=== PATIENT | male | born 1965 | race Caucasian/White ===

== ENCOUNTER 2023-05-30 15:43 | Outpatient (AMB) | payer BC, SELFPAY ==
--- NOTE | 2023-05-30 15:50 | HO.NEPHOV ---
HPI HPI Comments History of Present Illness Details Mr. Lorenzo is a 57 year old gentleman whom I had the pleasure of seeing in follow-up of for his chronic kidney disease and hypertension. 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 His post op course was complicated by acute urinary retention for which he presented to the ED and had a Andrew placed. He was followed up with urology as an outpatient for removal. He reports he is now voiding without any issues. He also had some blood in the urine and was suggested to have cystoscopy. His blood pressure is currently at goal. He does not take any nonsteroidal anti-inflammatories. His serum calcium continues to be labile. He denies nausea, vomiting, confusion, pedal edema, dysuria, orthostatic symptoms, chest pain, paroxysmal nocturnal dyspnea, orthopnea or shortness of breath. He maintains good hydration. All other systems have been reviewed and were negative. [facility] Medical History (Updated 06/02/23 @ 20:23 by Benson Ng MD) CKD (chronic kidney disease) Family History (Updated 05/30/23 @ 15:58 by Lore Medina MA) Father Cancer Social History (Updated 05/30/23 @ 15:57 by Lore Medina MA) Alcohol intake: never Patient Tobacco Use Status: Former Tobacco user Vital Signs 05/30/23 15:52 Height 5 ft 9 in Weight 184 lb BMI 27.2 BP 120/82 Blood Pressure Location Lt brachial Position Sitting Pulse 78 Pulse Source Pulse Oximeter Pulse Oximetry (%) 100 Oxygen Delivery Method Room Air Physical Exam Vital Signs: Last Vital Signs Pulse 78 05/30/23 15:52 BP 120/82 05/30/23 15:52 Pulse Ox 100 05/30/23 15:52 Oxygen Delivery Method Room Air 05/30/23 15:52 BMI result Body Mass Index 27.2 Const General: comfortable and no acute distress Orientation/consciousness: patient oriented x3 HEENT Head: Yes normocephalic Mouth: Normal oral and palatal mucosa present Eyes EOM: EOMs intact bilaterally Neck Neck: Yes supple Resp Auscultation: clear to auscultation bilaterally Cardio Jugular venous distension: no JVD Rate: regular rate GI Palpation (GI): Soft to palpation Auscultation: normal bowel sounds General: Yes no CVA tenderness Back/Spine/Pelvis Back: no CVA tenderness Skin General skin exam: no rashes or lesions noted Neuro General: patient oriented x3 and moves all extremities Extrem General: Yes no pedal edema Assessment & Plan Assessment & Plan (1) Hypertension: Code(s): I10 - Essential (primary) hypertension Qualifiers: Hypertension type: primary hypertension Qualified Code(s): I10 - Essential (primary) hypertension (2) CKD (chronic kidney disease) stage 3, GFR 30-59 ml/min: Code(s): N18.30 - Chronic kidney disease, stage 3 unspecified Qualifiers: Chronic kidney disease stage 3 subtype: stage 3a (GFR 45-59) Qualified Code(s): N18.31 - Chronic kidney disease, stage 3a (3) Hypercalcemia: Code(s): E83.52 - Hypercalcemia (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 Lorenzo has CKD and his renal functions had been fairly stable. His blood pressure is at goal. He is tolerating angiotensin receptor kristian. He avoids nonsteroidal anti-inflammatories and maintain good hydration . 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 He recently had urinary retention with a microscopic hematuria and was suggested to have cystoscopy. I took the liberty to refer him to Dr. Vladimir Kam. I have ordered follow-up blood work. I plan to do PKD gene testing for him as well. I did not make any medication changes today. All questions answered. Follow-up given. Orders: Orders Blood Urea Nitrogen 05/30/23 I10 - Essential (primary) hypertension, N18.30 - Chronic kidney disease, stage 3 unspecified Electrolytes 05/30/23 I10 - Essential (primary) hypertension, N18.30 - Chronic kidney disease, stage 3 unspecified Parathyroid Hormone Intact 05/30/23 I10 - Essential (primary) hypertension, N18.30 - Chronic kidney disease, stage 3 unspecified Phosphorus 05/30/23 I10 - Essential (primary) hypertension, N18.30 - Chronic kidney disease, stage 3 unspecified Creatinine 05/30/23 I10 - Essential (primary) hypertension, N18.30 - Chronic kidney disease, stage 3 unspecified Protein Creatinine Ratio, Ur 05/30/23 I10 - Essential (primary) hypertension, N18.30 - Chronic kidney disease, stage 3 unspecified Vitamin D 25-OH Total 05/30/23 I10 - Essential (primary) hypertension, N18.30 - Chronic kidney disease, stage 3 unspecified Referrals Urology Referral E83.52 - Hypercalcemia, E83.59 - Other disorders of calcium metabolism, I10 - Essential (primary) hypertension, N18.30 - Chronic kidney disease, stage 3 unspecified, N25.89 - Other disorders resulting from impaired renal tubular function, N28.1 - Cyst of kidney, acquired, R31.29 - Other microscopic hematuria, Z87.898 - Personal history of other specified conditions Coding Level of Care Code Est Pt Level 4 (88681) Diagnoses Primary hypertension I10 Hypertension type: primary hypertension Stage 3a chronic kidney disease N18.31 Chronic kidney disease stage 3 subtype: stage 3a (GFR 45-59) Hypercalcemia E83.52 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
[2023-05-30 15:52] VITALS: BP 120/82; PULSE 78; O2SAT 100; BMI 27.2
== END 2023-05-30 16:36 | disposition home or self-care (01) ==
PROVIDERS: Visit Provider Internal Medicine Nephrology
DX: I10 Essential (primary) hypertension (principal); N18.31 Chronic kidney disease, stage 3a; E83.52 Hypercalcemia; E83.59 Other disorders of calcium metabolism; R31.29 Other microscopic hematuria; Z87.898 Personal history of other specified conditions; N25.89 Other disorders resulting from impaired renal tubular function; N28.1 Cyst of kidney, acquired
CPT/HCPCS: 99214

== ENCOUNTER → 2023-05-30 15:43 | Outpatient (BNVA) | payer BC, SELFPAY | PROVIDERS: Visit Provider Internal Medicine Nephrology ==

== ENCOUNTER 2023-07-23 14:50 | Outpatient (AMB) | payer BC, SELFPAY ==
--- NOTE | 2023-07-23 14:49 | MHC.OFFVIS ---
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 The patient states he voided a small amount in recovery room. He went home but was unable to void again and returned to the emergency room at 22:00 and a Andrew was placed. He states that there was bleeding after the Andrew was placed. He followed up with [facility] urology in 4-5 days to have the Andrew removed. He was on tamsulosin while the Andrew was in but states that he does not generally have issues with urination. Urinalysis 2+ protein trace blood. Bladder scan PVR 12 mL Plan renal ultrasound, PSA screening, urine for cytology, will consider office cystoscopy for the future pending results on follow-up. [facility] Medical History CKD (chronic kidney disease) Surgical History History of back surgery Hx of cholecystectomy Hx of total thyroidectomy Family History Father Cancer Social History Alcohol intake: never Patient Tobacco Use Status: Former Tobacco user Review of Systems Const All systems reviewed & are unremarkable except as noted in HPI and below Reports no additional complaints Eyes Reports no additional complaints ENT Reports no additional complaints Card Denies dyspnea Resp Denies cough and Denies dyspnea GI Reports no additional complaints Musc Reports no additional complaints Skin/Breast Denies rash and Denies unusual bruising Neuro Reports no additional complaints Psych Reports no additional complaints Endo Reports no additional complaints Lance/Lymph Reports no additional complaints Aller/Immun Reports no additional complaints Physical Exam Const General: healthy appearing, no acute distress and well developed HEENT Head: Yes normocephalic and Yes atraumatic Eyes Conjunctivae: conjunctivae normal Neck Neck: Yes normal visual inspection Chest Chest palpation & inspection: normal inspection of the chest Resp Effort & Inspection: normal respiratory effort Cardio Rate: regular rate GI Inspection: Yes normal to inspection Palpation (GI): Soft to palpation Skin General skin exam: no rashes or lesions noted Extrem General: No pedal edema Psych Appearance: grossly normal Affect: normal affect Office Procedures Post Void Residual Post Residual Void Post Void Residual (PVR): 12 [id number] Void Residual by ultrasound Results AMB Urinalysis, Automated UA Leukoctes 0 Randy/uL Last Edit by Roberta Echevarria MA on 07/23/23 15:12 UA Nitrite Negative Last Edit by Roberta Echevarria MA on 07/23/23 15:12 UA Urobilinogen 3.5 mg/dL Last Edit by Roberta Echevarria MA on 07/23/23 15:12 UA Protein 3.0 mg/dL Last Edit by Roberta Echevarria MA on 07/23/23 15:12 3+ Roberta Echevarria 07/23/23 15:12 UA pH 6.5 Last Edit by Roberta Echevarria MA on 07/23/23 15:12 UA Blood 10 [place]/uL Last Edit by Roberta Echevarria MA on 07/23/23 15:12 + Roberta Echevarria 07/23/23 15:12 UA Specific [place] 1.015 Last Edit by Roberta Echevarria MA on 07/23/23 15:12 UA Ketone Negative Last Edit by Rboerta Echevarria MA on 07/23/23 15:12 UA Bilirubin 0 mg/dL Last Edit by Roberta Echevarria MA on 07/23/23 15:12 UA Glucose 0 mg/dL Last Edit by Roberta Echevarria MA on 07/23/23 15:12 Results Reviewed Results Reviewed: Laboratory Last Values Urine pH (Auto) 6.5 07/23/23 14:53 Specific [place] (Auto) 1.015 07/23/23 14:53 Urine Protein (Auto) 3.0 mg/dL 07/23/23 14:53 Glucose (UA)(Auto) 0 mg/dL 07/23/23 14:53 Urine Ketones (Auto) Negative 07/23/23 14:53 Urine Blood (Auto) 10 [place]/uL 07/23/23 14:53 Urine Nitrite (Auto) Negative 07/23/23 14:53 Urine Bilirubin (Auto) 0 mg/dL 07/23/23 14:53 Urine Urobilinogen (Auto) 3.5 mg/dL 07/23/23 14:53 Leukocyte Esterase (Auto) 0 Randy/uL 07/23/23 14:53 Assessment & Plan Assessment & Plan (1) Microscopic hematuria: Code(s): R31.29 - Other microscopic hematuria (2) Screening PSA (prostate specific antigen): Code(s): Z12.5 - Encounter for screening for malignant neoplasm of prostate Plan renal ultrasound, PSA screening, urine for cytology, will consider office cystoscopy for the future pending results on follow-up. Orders: Orders AMB Urinalysis Automated 07/23/23 Z13.9 - Encounter for screening, unspecified AMB Post Void Residual by ultrasound 07/23/23 Z87.898 - Personal history of other specified conditions US renal BI 07/23/23 N18.9 - Chronic kidney disease, unspecified, R31.29 - Other microscopic hematuria Urine Cytology 07/23/23 R31.29 - Other microscopic hematuria PSA,Total (Free>4and<10) 07/23/23 Z12.5 - Encounter for screening for malignant neoplasm of prostate Patient Instructions: The patient had an opportunity to ask questions regarding treatment plan. All questions were answered. Laboratory results were discussed and reviewed in detail. No major barriers to understanding were identified. The patient expressed understanding and agreement with the above treatment plan. The patient is aware they should contact our office by phone for worsening of their current condition or the appearance of new symptoms. Compliance is encouraged with any medications and followup testing that is ordered. It is a privilege to be allowed the opportunity to participate in the urologic care of your patient. If you have any questions or concerns regarding treatment for the above conditions please do not hesitate to contact me. The office telephone contact is [phone]. This note is constructed in part using voice recognition software. While every effort has been made to ensure accuracy tire mounter errors may have been included. Yours sincerely, Jose Key MD Coding Level of Care Code New Pt Level 4 (56148) Diagnoses Microscopic hematuria R31.29 Screening PSA (prostate specific antigen) Z12.5 CPT Codes Post Residual Void - PVR CPT Code: 64433-Sxyn Void Residual by ultrasound ([id number])
== END 2023-07-23 15:51 | disposition home or self-care (01) ==
PROVIDERS: Visit Provider Urology
DX: R31.29 Other microscopic hematuria (principal); Z12.5 Encounter for screening for malignant neoplasm of prostate
CPT/HCPCS: 99204

== ENCOUNTER 2023-07-23 14:50 | Outpatient (REF) | payer BC, SELFPAY ==
[2023-07-23 17:35] LABS: Urine Cytology See Pathology rpt
== END 2023-07-23 14:51 | disposition home or self-care (01) ==
LOC: HO.LAB 14:50
PROVIDERS: Visit Provider Urology
DX: R31.29 Other microscopic hematuria (principal)
CPT/HCPCS: 51798; 81003; 88112

== ENCOUNTER 2023-08-29 14:09 | Outpatient (REF) | payer BC, SELFPAY ==
[2023-08-29 17:13] LABS: PSA,Total (Free>4and<10) 2.47 ng/mL (0.00-4.00)
== END 2023-08-29 14:10 | disposition home or self-care (01) ==
LOC: HO.LAB 14:09
PROVIDERS: Absent Provider Internal Medicine Nephrology; PCP Family Medicine; Visit Provider Urology
DX: Z12.5 Encounter for screening for malignant neoplasm of prostate (principal)
CPT/HCPCS: 36415; 84153

== ENCOUNTER 2023-08-29 14:24 | Outpatient (AMB) | payer BC, SELFPAY ==
[2023-08-29 14:33] VITALS: BP 122/80; PULSE 80; O2SAT 97; BMI 27.6
--- NOTE | 2023-08-29 14:33 | HO.NEPHOV_ITS ---
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 Lorenzo is a 57 year old gentleman whom I had the pleasure of seeing in follow-up of for his chronic kidney disease and hypertension. He underwent la paroscopic cholecystectomy for symptomatic gallstones on 03/24/23 (Chronic cholecystitis/ Cystic duct lymph node with reactive hyperplasia). His post op course was complicated by acute urinary retention for which he presented to the ED and had a Andrew placed. He was followed up with urology as an outpatient for removal. He reports he is now voiding without any issues. He also had some blood in the urine and was suggested to have cystoscopy for which he has seen Urology. His blood pressure is currently at goal. He does not take any nonsteroidal anti-inflammatories. His serum calcium continues to be labile. He denies nausea, vomiting, confusion, pedal edema, dysuria, orthostatic symptoms, chest pain, paroxysmal nocturnal dyspnea, orthopnea or shortness of breath. He maintains good hydration. His serum creatinine has been stable. He has been having issues with ejaculation and wants to see Dr Kam. All other systems have been reviewed and were negative. [facility] Medical History CKD (chronic kidney disease) Surgical History History of back surgery Hx of cholecystectomy Hx of total thyroidectomy Family History Father Cancer Social History Alcohol intake: never Patient Tobacco Use Status: Former Tobacco user Physical Exam Vital Signs: Last Vital Signs Pulse 80 08/29/23 14:33 BP 122/80 08/29/23 14:33 Pulse Ox 97 08/29/23 14:33 Oxygen Delivery Method Room Air 08/29/23 14:33 BMI result Body Mass Index 27.6 Const General: comfortable and no acute distress Orientation/consciousness: patient oriented x3 HEENT Head: Yes normocephalic Mouth: Normal oral and palatal mucosa present Eyes EOM: EOMs intact bilaterally Neck Neck: Yes supple Resp Auscultation: clear to auscultation bilaterally Cardio Jugular venous distension: no JVD Rate: regular rate GI Palpation (GI): Soft to palpation Auscultation: normal bowel sounds General: Yes no CVA tenderness Back/Spine/Pelvis Back: no CVA tenderness Skin General skin exam: no rashes or lesions noted Neuro General: patient oriented x3 and moves all extremities Extrem General: Yes no pedal edema Results Reviewed Nephrology Results: No Data to Display Assessment & Plan Assessment & Plan (1) CKD (chronic kidney disease) stage 3, GFR 30-59 ml/min: Code(s): N18.30 - Chronic kidney disease, stage 3 unspecified Category: Medical Qualifiers: Chronic kidney disease stage 3 subtype: stage 3a (GFR 45-59) Qualified Code(s): N18.31 - Chronic kidney disease, stage 3a (2) Hypercalcemia: Code(s): E83.52 - Hypercalcemia Category: Medical (3) Hypertension: Code(s): I10 - Essential (primary) hypertension Category: Medical Qualifiers: Hypertension type: primary hypertension Qualified Code(s): I10 - Essential (primary) hypertension (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 Lorenzo has CKD and his renal functions had been fairly stable. His blood pressure is at goal. He is tolerating angiotensin receptor kristian. He avoids nonsteroidal anti-inflammatories and maintain good hydration . 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 He recently had urinary retention with a microscopic hematuria and was suggested to have cystoscopy for which he has seen Urology. He has been having issues with ejaculation and wants to see Dr Kam. ( I have sent him a message). I plan to do PKD gene testing for him as well. I did not make any medication changes today. All questions answered. Follow-up given. Orders: Orders Blood Urea Nitrogen Today E83.52 - Hypercalcemia, E83.59 - Other disorders of calcium metabolism, I10 - Essential (primary) hypertension, N18.31 - Chronic kidney disease, stage 3a Electrolytes Today E83.52 - Hypercalcemia, E83.59 - Other disorders of calcium metabolism, I10 - Essential (primary) hypertension, N18.31 - Chronic kidney disease, stage 3a Calcium Today E83.52 - Hypercalcemia, E83.59 - Other disorders of calcium metabolism, I10 - Essential (primary) hypertension, N18.31 - Chronic kidney disease, stage 3a Creatinine Today E83.52 - Hypercalcemia, E83.59 - Other disorders of calcium metabolism, I10 - Essential (primary) hypertension, N18.31 - Chronic kidney disease, stage 3a
== END 2023-08-29 15:20 | disposition home or self-care (01) ==
PROVIDERS: Visit Provider Internal Medicine Nephrology
DX: N18.31 Chronic kidney disease, stage 3a (principal); E83.52 Hypercalcemia; I10 Essential (primary) hypertension; E83.59 Other disorders of calcium metabolism
CPT/HCPCS: 99214

== ENCOUNTER 2023-10-13 10:10 | Outpatient (REF) | payer BC, SELFPAY ==
--- NOTE | ~2023-10-13 | US_ITS ---
EXAMINATION: US RETROPERITONEAL LIMITED (RENAL ONLY) CLINICAL INFORMATION: Chronic kidney disease, unspecified. COMPARISON: None available. TECHNIQUE: Real-time imaging of the kidneys. FINDINGS: RIGHT KIDNEY: 12.4 x 5.2 x 5.5 cm (SAG x AP x TRV). The kidney is normal in size, contour, and echogenicity. Renal cortical thickness is normal. No renal calculi or hydronephrosis. There are multiple renal cysts including: Complex septated cyst in the upper pole measuring 4.2 x 3.7 x 3.6 cm, relatively simple mid renal cyst measuring 2.2 x 1.6 x 1.9 cm and a lower pole cyst with peripheral calcification measures 1.7 x 1.9 x 1.6 cm. 0.6 x 0.6 x 0.57 calcification is associated with the lower pole cyst. 0.3 x 0.3 0.5 x 0.4 x 0.3 cm calcification is associated with a cyst in the upper pole. LEFT KIDNEY: 11.7 x 4.8 x 6.4 cm (SAG x AP x TRV). The kidney is normal in size, contour, and echogenicity. Renal cortical thickness is normal. No renal calculi or hydronephrosis. There are multiple renal cysts includin.1 x 1.0 x 1.2 cm upper pole cyst with a thickened echogenic/? Calcified wall, 1.4 x 1.2 fold 0.6 cm upper pole cyst with a few thin partial septa, in the mid kidney? Complex cyst versus 2 cysts adjacent to each other measures 1.9 x 1.4 x 1.3, mid pole cyst with peripheral echogenic foci measures 1.7 x 1.6 x 2.0 cm and 2.3 x 1.5 x 1.9 cm simple lower pole cyst. Also seen is a 0.7 x 0.5 x 1.6 cm linear echogenic focus in the mid kidney with shadowing suggestive of calcification. US/US renal BI IMPRESSION: 1. Multiple bilateral renal cysts. 2. 1.2 cm complex septated cyst in the upper pole of the right kidney. 3. 1.2 cm complex cyst in the mid left kidney with a thickened echogenic wall. 4. 1.6 cm linear echogenic focus in the mid left kidney with shadowing suggestive of calcification. CT scan could be obtained for further evaluation.
== END 2023-10-13 10:11 | disposition home or self-care (01) ==
LOC: HO.US 10:10
PROVIDERS: PCP Family Medicine; Visit Provider Urology
DX: N18.9 Chronic kidney disease, unspecified (principal); R31.29 Other microscopic hematuria
CPT/HCPCS: 76775

== ENCOUNTER 2023-10-24 11:21 | Outpatient (AMB) | payer BC, SELFPAY ==
--- NOTE | 2023-10-24 11:24 | A.OFFVIS_ITS ---
Intake Visit Reasons: 3m/US/PSA Intake Note: Patient presents today for a follow-up on US and PSA Results: Meds- Tamsulosin (no longer taking) & Testo Allergies to Antibiotic- No Known Allergies Blood Thinner- None Post Void Residual: 58 mL Magneto Repairer Required: No Accompanied by: Self / Same As Patient Allergies fentanyl [FENTANYL] Allergy (Unknown, Verified 10/24/23 11:31) ANGIOEDEMA From INDOCIN Adverse Reaction (Unknown, Uncoded 10/24/23 11:31) HEART PALPITATIONS HPI Comments Details: 10/24/23--Rashard is here for follow-up. History of chronic kidney disease. He is being followed for hematuria and obstructive voiding symptoms he had episode of urinary retention after cholecystectomy requiring a Andrew catheter; he was started on tamsulosin but states he has discontinued the medication because he feels he is voiding without difficulty. I have reviewed renal ultrasound 10/13/23, bilateral simple and complex renal cysts. PSA results--08/29/2023--2.47. Review renal function outside labs from [facility], 08/22/2023--BUN/creatinine--24/2.0. Will monitor PVR follow-up in 6-7 months. Review of chart: 07/23/23---h/o CKD followed by Nephrology had urinary retention post cholecystectomy 04/08/2023. The patient states he voided a small amount in recovery room. He went home but was unable to void again and returned to the emergency room at 22:00 and a Andrew was placed. He states that there was bleeding after the Andrew was placed. He followed up with [facility] in 4-5 days to have the Andrew removed. He was on tamsulosin while the Andrew was in but states that he does not generally have issues with urination. Urinalysis 2+ protein trace blood. Bladder scan PVR 12 mL. Plan renal ultrasound, PSA screening, urine for cytology, will consider office cystoscopy for the future pending results on follow-up. PFSH Medical History CKD (chronic kidney disease) Surgical History History of back surgery Hx of cholecystectomy Hx of total thyroidectomy Family History Father Cancer Social History Alcohol intake: never Patient Tobacco Use Status: Former Tobacco user Review of Systems Const All systems reviewed & are unremarkable except as noted in HPI and below Reports no additional complaints Eyes Reports no additional complaints ENT Reports no additional complaints Card Reports no additional complaints Resp Reports no additional complaints GI Reports no additional complaints Reports as per HPI Musc Reports no additional complaints Skin/Breast Reports system reviewed and no additional complaints, except as documented Neuro Reports no additional complaints Psych Reports no additional complaints Endo Reports no additional complaints Lance/Lymph Reports no additional complaints Aller/Immun Reports no additional complaints Office Procedures Post Void Residual Post Residual Void Post Void Residual (PVR): 58 00309-[id number] Void Residual by ultrasound Results AMB Urinalysis, Automated UA Leukoctes 0 Randy/uL Last Edit by JAMMIE Keenan on 10/24/23 11:45 UA Nitrite Negative Last Edit by JAMMIE Keenan on 10/24/23 11:45 UA Urobilinogen 0.2 mg/dL Last Edit by JAMMIE Keenan on 10/24/23 11:4 5 UA Protein 300 mg/dL Last Edit by JAMMIE Keenan on 10/24/23 11:45 3+ Radha Hua 10/24/23 11:45 UA pH 6.0 Last Edit by JAMMIE Keenan on 10/24/23 11:45 UA Blood 10 [place]/uL Last Edit by JAMMIE Keenan on 10/24/23 11:45 UA Specific [place] 1.015 Last Edit by JAMMIE Keenan on 10/24/23 11: 45 UA Ketone Negative Last Edit by JAMMIE Keenan on 10/24/23 11:45 UA Bilirubin 0 mg/dL Last Edit by JAMMIE Keenan on 10/24/23 11:45 UA Glucose 0 mg/dL Last Edit by JAMMIE Keenan on 10/24/23 11:45 Results Reviewed Results Reviewed: Laboratory Last Values Urine pH (Auto) 6.0 10/24/23 11:43 Specific [place] (Auto) 1.015 10/24/23 11:43 Urine Protein (Auto) 300 mg/dL 10/24/23 11:43 Glucose (UA)(Auto) 0 mg/dL 10/24/23 11:43 Urine Ketones (Auto) Negative 10/24/23 11:43 Urine Blood (Auto) 10 [place]/uL 10/24/23 11:43 Urine Nitrite (Auto) Negative 10/24/23 11:43 Urine Bilirubin (Auto) 0 mg/dL 10/24/23 11:43 Urine Urobilinogen (Auto) 0.2 mg/dL 10/24/23 11:43 Leukocyte Esterase (Auto) 0 Randy/uL 10/24/23 11:43 Assessment & Plan Assessment & Plan (1) Microscopic hematuria: Code(s): R31.29 - Other microscopic hematuria Category: Medical (2) Screening PSA (prostate specific antigen): Code(s): Z12.5 - Encounter for screening for malignant neoplasm of prostate Category: Medical Plan Monitor PVR and PSA follow-up in 6-7 months Orders: Orders AMB Urinalysis Automated 10/24/23 Z13.9 - Encounter for screening, unspecified AMB Post Void Residual by ultrasound 10/24/23 N39.8 - Other specified disorders of urinary system Patient Instructions: The patient had an opportunity to ask questions regarding treatment plan. The patient expressed understanding and agreement with the above treatment plan. The patient is aware they should contact our office by phone for worsening of their current condition or the appearance of new symptoms. Compliance is encouraged with any medications and followup testing that is ordered. It is a privilege to be allowed the opportunity to participate in the urologic care of your patient. If you have any questions or concerns regarding treatment for the above conditions please do not hesitate to contact me. The office telephone contact is [phone]. This note is constructed in part using voice recognition software. While every effort has been made to ensure accuracy rug frame mounter errors may have been included. Yours sincerely, Jose Key MD Coding Level of Care Code Est Pt Level 3 (71571) Diagnoses Microscopic hematuria R31.29 Screening PSA (prostate specific antigen) Z12.5 CPT Codes Post Residual Void - PVR CPT Code: 43139-Kbet Void Residual by ultrasound ([id number])
== END 2023-10-24 12:03 | disposition home or self-care (01) ==
PROVIDERS: Visit Provider Urology
DX: R31.29 Other microscopic hematuria (principal); Z12.5 Encounter for screening for malignant neoplasm of prostate
CPT/HCPCS: 99213

== ENCOUNTER → 2023-10-24 11:21 | Outpatient (BNVA) | payer BC, SELFPAY | PROVIDERS: Visit Provider Urology | DX: R31.29 Other microscopic hematuria (principal); N39.8 Other specified disorders of urinary system | CPT/HCPCS: 51798; 81003 ==

== ENCOUNTER 2023-12-12 14:23 | Outpatient (AMB) | payer BC, SELFPAY ==
[2023-12-12 14:43] VITALS: BP 110/64; PULSE 86; O2SAT 98; BMI 27.2
--- NOTE | 2023-12-12 14:43 | HO.NEPHOV_ITS ---
Vital Signs 12/12/23 14:43 Height 5 ft 9 in Weight 184 lb 2 oz BMI 27.2 BP 110/64 Blood Pressure Location Rt brachial Position Sitting Pulse 86 Pulse Source Pulse Oximeter Pulse Oximetry (%) 98 Oxygen Delivery Method Room Air Intake Visit Reasons: CKD/ Early December FU Cold Type Artist Required: No Accompanied by: Self / Same As Patient Allergies fentanyl [FENTANYL] Allergy (Unknown, Verified 12/12/23 14:45) ANGIOEDEMA From INDOCIN Adverse Reaction (Unknown, Uncoded 10/24/23 11:31) HEART PALPITATIONS HPI Comments Details: Mr. Lorenzo is a 57 year old gentleman whom I had the pleasure of seeing in follow-up of for his chronic kidney disease and hypertension. 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 His post op course was complicated by acute urinary retention for which he presented to the ED and had a Andrew placed. He was followed up with urology as an outpatient for removal. He reports he is now voiding without any issues. He also had some bloo d in the urine and was suggested to have cystoscopy for which he has seen Urology. His blood pressure is currently at goal. He does not take any nonsteroidal anti-inflammatories. His serum calcium continues to be labile. He denies nausea, vomiting, confusion, pedal edema, dysuria, orthostatic symptoms, chest pain, paroxysmal nocturnal dyspnea, orthopnea or shortness of breath. He maintains good hydration. His serum creatinine had been stable.All other systems have been reviewed and were negative. [facility] Medical History CKD (chronic kidney disease) Surgical History History of back surgery Hx of cholecystectomy Hx of total thyroidectomy Family History Father Cancer Social History Alcohol intake: never Patient Tobacco Use Status: Former Tobacco user Review of Systems Const All systems reviewed & are unremarkable except as noted in HPI and below Physical Exam Vital Signs: Last Vital Signs Pulse 86 12/12/23 14:43 BP 110/64 12/12/23 14:43 Pulse Ox 98 12/12/23 14:43 Oxygen Delivery Method Room Air 12/12/23 14:43 BMI result Body Mass Index 27.2 Const General: comfortable and no acute distress Orientation/consciousness: patient oriented x3 HEENT Head: Yes normocephalic Mouth: Normal oral and palatal mucosa present Eyes EOM: EOMs intact bilaterally Neck Neck: Yes supple Resp Auscultation: clear to auscultation bilaterally Cardio Jugular venous distension: no JVD Rate: regular rate GI Palpation (GI): Soft to palpation Auscultation: normal bowel sounds General: Yes no CVA tenderness Back/Spine/Pelvis Back: no CVA tenderness Skin General skin exam: no rashes or lesions noted Neuro General: patient oriented x3 and moves all extremities Extrem General: Yes no pedal edema Results Reviewed Nephrology Results: Renal US 10/13/23 Assessment & Plan Assessment & Plan (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 - Other disorders of calcium metabolism Category: Medical (2) Hypercalcemia: Code(s): E83.52 - Hypercalcemia Category: Medical (3) Hypertension: Code(s): I10 - Essential (primary) hypertension Category: Medical Qualifiers: Hypertension type: primary hypertension Qualified Code(s): I10 - Essential (primary) hypertension (4) Renal cysts, acquired, bilateral: Code(s): N28.1 - Cyst of kidney, acquired Category: Medical (5) CKD (chronic kidney disease) stage 3, GFR 30-59 ml/min: Code(s): N18.30 - Chronic kidney disease, stage 3 unspecified Category: Medical Qualifiers: Chronic kidney disease stage 3 subtype: stage 3a (GFR 45-59) Qualified Code(s): N18.31 - Chronic kidney disease, stage 3a Plan Mr. Lorenzo has CKD and his renal functions had been fairly stable. His blood pressure is at goal. He is tolerating angiotensin receptor kristian. He avoids nonsteroidal anti-inflammatories and maintain good hydration . 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 He recently had urinary retention with a microscopic hematuria and was suggested to have cystoscopy for which he has seen Urology. He will need a PKD gene testing . I did not make any medication changes today. All questions answered. Follow-up given. Orders: Orders Blood Urea Nitrogen Today E83.52 - Hypercalcemia, E83.59 - Other disorders of calcium metabolism, I10 - Essential (primary) hypertension, N18.31 - Chronic kidney disease, stage 3a, N28.1 - Cyst of kidney, acquired Calcium Today E83.52 - Hypercalcemia, E83.59 - Other disorders of calcium metabolism, I10 - Essential (primary) hypertension, N18.31 - Chronic kidney disease, stage 3a, N28.1 - Cyst of kidney, acquired Parathyroid Hormone Intact Today E83.52 - Hypercalcemia, E83.59 - Other disorders of calcium metabolism, I10 - Essential (primary) hypertension, N18.31 - Chronic kidney disease, stage 3a, N28.1 - Cyst of kidney, acquired Creatinine 4 Months E83.52 - Hypercalcemia, E83.59 - Other disorders of calcium metabolism, I10 - Essential (primary) hypertension, N18.31 - Chronic kidney disease, stage 3a, N28.1 - Cyst of kidney, acquired Blood Urea Nitrogen 4 Months E83.52 - Hypercalcemia, E83.59 - Other disorders of calcium metabolism, I10 - Essential (primary) hypertension, N18.31 - Chronic kidney disease, stage 3a, N28.1 - Cyst of kidney, acquired Creatinine Today E83.52 - Hypercalcemia, E83.59 - Other disorders of calcium metabolism, I10 - Essential (primary) hypertension, N18.31 - Chronic kidney disease, stage 3a, N28.1 - Cyst of kidney, acquired Electrolytes Today E83.52 - Hypercalcemia, E83.59 - Other disorders of calcium metabolism, I10 - Essential (primary) hypertension, N18.31 - Chronic kidney disease, stage 3a, N28.1 - Cyst of kidney, acquired Electrolytes 4 Months E83.52 - Hypercalcemia, E83.59 - Other disorders of calcium metabolism, I10 - Essential (primary) hypertension, N18.31 - Chronic kidney disease, stage 3a, N28.1 - Cyst of kidney, acquired Calcium 4 Months E83.52 - Hypercalcemia, E83.59 - Other disorders of calcium metabolism, I10 - Essential (primary) hypertension, N18.31 - Chronic kidney disease, stage 3a, N28.1 - Cyst of kidney, acquired Coding Level of Care Code Est Pt Level 4 (13431) Diagnoses 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
== END 2023-12-12 15:12 | disposition home or self-care (01) ==
PROVIDERS: PCP Family Medicine; Visit Provider Internal Medicine Nephrology
DX: E83.59 Other disorders of calcium metabolism (principal); E83.52 Hypercalcemia; I10 Essential (primary) hypertension; N28.1 Cyst of kidney, acquired; N18.31 Chronic kidney disease, stage 3a
CPT/HCPCS: 99214

== ENCOUNTER 2023-12-12 14:23 | Outpatient (REF) | payer BC, SELFPAY ==
[2023-12-12 16:46] LABS: Anion Gap 13 (12-20); Blood Urea Nitrogen 27 mg/dL (9-16); Calcium 11.4 mg/dL (8.4-10.2); Carbon Dioxide 32 mmol/L (22-29); Chloride 102 mmol/L (96-108); Estimated Glomerular Filt Rate 33; Phosphorus 2.9 mg/dL (2.7-4.5); Potassium 4.5 mmol/L (3.3-5.1); Sodium 142 mmol/L (135-145)
[2023-12-12 16:48] LABS: Parathyroid Hormone Intact 8.1 pg/mL (8.7-77.1)
[2023-12-12 17:02] LABS: Vitamin D 25-OH Total 39.6 ng/mL (>30)
[2023-12-12 19:33] LABS: Creatinine Urine 96.88 mg/dL; Protein/Creatinine Ratio, Ur 1.08 (<0.2); Total Protein Urine Random 105 mg/dL (<12)
== END 2023-12-12 14:24 | disposition home or self-care (01) ==
LOC: HO.LAB 14:23
PROVIDERS: PCP Family Medicine; Visit Provider Internal Medicine Nephrology
DX: E83.59 Other disorders of calcium metabolism (principal); E83.52 Hypercalcemia; I12.9 Hypertensive chronic kidney disease with stage 1 through stage 4 chronic kidney disease, or unspecified chronic kidney disease; N18.31 Chronic kidney disease, stage 3a; N28.1 Cyst of kidney, acquired
CPT/HCPCS: 36415; 80051; 82306; 82310; 82565; 82570; 83970; 84100; 84156; 84520

== ENCOUNTER 2024-05-21 09:29 | Outpatient (AMB) | payer BC, SELFPAY ==
--- OUTSIDE RECORDS SUMMARY | 2024-05-21 09:32 | XMS_ITS | Data Portability ---
Author Organization [place] - [facility], Allergy Address [address] [place] [address] Care Team Providers Care Heavy Equipment Operator/Paver Name Role Phone EDUARDO EVERETT Primary Care Provider [phone] Assessment Encounter Date Assessment Date Assessment LastModified by Organization Details LastModified Time 02/26/2024 02/26/2024 58 year old male with five years of bilateral tinnitus. Ear examination today is normal. Audiogram demonstrates a mild high frequency sensorineural hearing loss bilaterally. Audiogram was reviewed with the patient. The connection between hearing loss and tinnitus was discussed. The patient is not yet a candidate for hearing aids,however, should hearing loss develop/progress , hearing aids would be expected to help with tinnitus. Masking strategies to help avoid awareness of tinnitus were discussed, as well as exacerbating factors such as stress, lack of sleep, caffeine and salt intake. For tinnitus that is significantly affecting quality of life; tinnitus retraining therapy or cognitive behavioral therapy can be helpful. Would suggest follow up for subjective change in hearing or worsening tinnitus. [email or web address] Not available 02/26/2024 14:36:22 Plan of Treatment Reminders Order Date Submit Date Provider Last Modified By Organization Details Last Modified Time Details Appointments None record ed. Lab None record ed. Referral None record ed. Procedures None record ed. Surgeries None record ed. Imaging None record ed. Medication Orders None record ed. Patient TargetsNo targets recorded. Patient InstructionsNo instructions recorded. Reason for Referral None Reported. Results Created Date Observation Date Name Description Value Unit Range Abnormal Flag Note LastModifiedBy Organization Detail LastModifiedTime 02/26/20 24 audio gram No observ ation record ed. BARCODE Not Available 2023 16:01:01 Result Notes None recorded. Problems Name Problem SNOMED Code Status Onset Date Resolution Date Notes Provider Name and Address Organization Details Recorded Time Sensorineur al hearing loss of bilateral ears 111936319 Active 2023 ISAÍAS ERIKA, GUILLAUME [address] [facility], [place], [address], [facility] 13:57:57 Bilateral tinnitus 7194184704602 Active 2023 CARLA BETH PA-C [address] [facility] [address], [place], [address], [facility] 14:36:37 Problem Notes None recorded. Procedures Surgical History Date Name Laterality Status Provider Name and Address Organization Details Recorded Time 02/26/2024 Comp Audio with Tymps (19629 & 07281) completed ISAÍAS CROSSANTHONY, GUILLAUME [address] [facility], [place], [address], [facility] 02/26/2024 13:57:47 Imaging Results Imaging Date Name Status LastModified by Organiz ation Details LastModified Time 02/26/2024 audiogram completed BARCODE Information no t available 02/26/2024 16:01:01 Procedure Notes None recorded. Medical Equipment None Reported. Medications Name Sig Start Date Stop Date Status Note LastModified by Organization Details LastModified Time nifedipine ER 30 mg tablet,exten ded release 24 hr active Not Available Not Available Not Available labetalol 200 mg tablet TAKE 1 TABLET BY MOUTH THREE TIMES DAILY active Not Available Not Available Not Available nifedipine ER 30 mg tablet,exten ded release TAKE 2 TABLETS BY MOUTH IN THE MORNING AND AT NIGHT active Not Available Not Available No t Available sildenafil 100 mg tablet TAKE ONE TABLET BY MOUTH ONE HOUR BEFORE INTERCOURSE active Not Available Not Available Not Available Hypodermic Florissant 23 gauge x 1 USE DIRECTED TO ADMINISTER active Not Available Not Available N ot Available terbinafine HCl 250 mg tablet TAKE 1 TABLET BY MOUTH EVERY DAY active Not Available Not Available No t Available BD Regular Bevel Florissant 18 gauge x 1 USE DIRECTED FOR DRAW TESTOSTERON E FROM THE VIAL active Not Available Not Available No t Available tamsulosin 0.4 mg capsule TAKE 1 CAPSULE BY MOUTH DAILY active Not Available Not Available Not Available calcitonin (salmon) 200 unit/actuati on nasal spray SPRAY 1 SPRAY INTO 1 NOSTRIL EVERY DAY AND ALTERNATE NOSTRILS EVERY DAY. active Not Available Not Available N ot Available levothyroxin e 50 mcg tablet active Not Available Not Available Not Available testosterone cypionate 200 mg/mL intramuscula r oil INJECT 0.8 ML TO 1 ML INTO THE MUSCLE ONCE PER WEEK active Not Available Not Available No t Available vardenafil 20 mg tablet TAKE 1 TABLET BY MOUTH 30 MINUTES PRIOR TO INTERCOURSE active Not Available Not Available Not Available pregabalin 25 mg capsule TAKE 1 CAPSULE BY MOUTH EVERY DAY AT BEDTIME active Not Available Not Available No t Available BD Regular Bevel Florissant 22 gauge x 1 USE DIRECTED TO ADMINISTER TESTOSTERON E active Not Available Not Available No t Available oxycodone 10 mg tablet TAKE 1 TABLET BY MOUTH 6 TIMES A DAY NEEDED active Not Available Not Available No t Available Easy Touch Luer Lock Syringe 1 mL USE DIRECTED ONCE WEEKLY active Not Available Not Available Not Available Vitals Date Recorded Body height Body mass index (BMI) Body weight Provider Name and Address Organization Details Last Updated DateTime 02/26/2024 175.26 cm 27.3 kg/m2 83207.59 g Marium [facility] 02/26/2024 14:29:31 Social History None recorded. Functional Status None recorded. Mental Status None recorded. Family History Nothing Reported. Medical History No medical history recorded. Past Encounters Encounter ID Performer Location Encounter Start Date Encounter Closed Date Diagnosis/Indication Diagnosis SNOMED-CT Code Diagnosis ICD10 Code Diagnosis Note [id number] CARLA BETH PA-C [facility] [address] [place] [address] 02/26/2024 13:42:35 02/26/2024 14:50:54 Sensorineural hearing loss of bilateral ears [id number] H90.3 Audiologic al evaluation results: Right ear: {{Normal sloping* M ild Modera te Moderat diane-severe Severe Pr ofound Nor mal auditory thresholds }} to {{mild* mo derate mod erately-se rohini sever e profound with}} {{sensorin eural hearing loss with* cond uctive hearing loss with mixed hearing loss with}} {{excellen t* good fa ir poor no t measurable }} word recognitio n. Left ear: {{Normal sloping* M ild Modera te Moderat diane-severe Severe Pr ofound Nor mal auditory thresholds }} to {{mild* mo derate mod erately-se rohini sever e profound with}} {{sensorin eural hearing loss with* cond uctive hearing loss with mixed hearing loss with}} {{excellen t* good fa ir poor no t measurable }} word recognitio n. Tympanomet ry: Right Ear:{{Type A* Type As Type Ad Type C Type C, shallow & rounded Ty pe B Type B with large volume Cou ld not maintain a hermetic seal}} Left Ear:{{Type A* Type As Type Ad Type C Type C, shallow & rounded Ty pe B Type B with large volume Cou ld not maintain a hermetic seal}} Bilateral tinnitus 28476 17354 102 H93.13 Health Concerns Section Related Observation LastModified by Organization Detai ls LastModified Time None Recorded Concern Status LastModified by Organization Details LastModified Time None Recorded Advance Directives Directive None Recorded Payers Encounter Date Sequence Insurance Name Policy Number Policy Gregorio Covered Member ID Gregorio Member ID Guarantor Name 02/26/2024 1 [id number] [id number] Ashley Lorenzo [id number] Rashard Lorenzo Notes Date Note Type Note Provider Name and Address Organization Details Recorded Time 02/26/2024 text/html 58 year old male presents today for evaluation of tinnitus.He reports symptoms started about five years ago. He describes the tinnitus as high pitched and bilateral. For the most part he can ignore it and does not find it terribly bothersome. 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 His father had hearing loss and wore hearing aids. CARLA BETH PA-C [address] [place] [address],[place] [address], [place], [address], [facility] - [facility] 02/26/2024 14:36:54
[2024-05-21 09:43] VITALS: BP 120/74; PULSE 71; O2SAT 95; BMI 27.6
--- NOTE | 2024-05-21 09:43 | HO.NEPHOV ---
Vital Signs 05/21/24 09:43 Height 5 ft 9 in Weight 187 lb BMI 27.6 BP 120/74 Blood Pressure Location Lt brachial Position Sitting Pulse 71 Pulse Source Pulse Oximeter Pulse Oximetry (%) 95 Oxygen Delivery Method Room Air Intake Visit Reasons: CKD-Conf Injury/Safety Hazard Assessment Required: No Accompanied by: Self / Same As Patient Allergies fentanyl [FENTANYL] Allergy (Unknown, Verified 05/21/24 09:45) ANGIOEDEMA From INDOCIN Adverse Reaction (Unknown, Uncoded 10/24/23 11:31) HEART PALPITATIONS HPI Comments Details: Mr. Lorenzo is a 57 year old gentleman whom I had the pleasure of seeing in follow-up of for his chronic kidney disease and hypertension. He reports he is now voiding without any issues. He also had some blood in the urine and was suggested to have cystoscopy for which he has seen Urology. His blood pressure is currently at goal. He does not take any nonsteroidal anti-inflammatories. His serum calcium continues to be labile. He denies nausea, vomiting, confusion, pedal edema, dysuria, orthostatic symptoms, chest pain, paroxysmal nocturnal dyspnea, orthopnea or shortness of breath. He maintains good hydration.All other systems have been reviewed and were negative. [facility], [facility] Medical History CKD (chronic kidney disease) Surgical History History of back surgery Hx of cholecystectomy Hx of total thyroidectomy Family History Father Cancer Social History Alcohol intake: never Patient Tobacco Use Status: Former Tobacco user Review of Systems Const All systems reviewed & are unremarkable except as noted in HPI and below Physical Exam Vital Signs: Last Vital Signs Pulse 71 05/21/24 09:43 BP 120/74 05/21/24 09:43 Pulse Ox 95 05/21/24 09:43 Oxygen Delivery Method Room Air 05/21/24 09:43 BMI result Body Mass Index 27.6 Const General: comfortable and no acute distress Orientation/consciousness: patient oriented x3 HEENT Head: Yes normocephalic Mouth: Normal oral and palatal mucosa present Eyes EOM: EOMs intact bilaterally Neck Neck: Yes supple Resp Auscultation: clear to auscultation bilaterally Cardio Jugular venous distension: no JVD Rate: regular rate GI Palpation (GI): Soft to palpation Auscultation: normal bowel sounds General: Yes no CVA tenderness Back/Spine/Pelvis Back: no CVA tenderness Skin General skin exam: no rashes or lesions noted Neuro General: patient oriented x3 and moves all extremities Extrem General: Yes no pedal edema Assessment & Plan Assessment & Plan (1) CKD (chronic kidney disease) stage 3, GFR 30-59 ml/min: Code(s): N18.30 - Chronic kidney disease, stage 3 unspecified Category: Medical Qualifiers: Chronic kidney disease stage 3 subtype: stage 3a (GFR 45-59) Qualified Code(s): N18.31 - Chronic kidney disease, stage 3a (2) Renal cysts, acquired, bilateral: Code(s): N28.1 - Cyst of kidney, acquired Category: Medical (3) Microscopic hematuria: Code(s): R31.29 - Other microscopic hematuria Category: Medical (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 Lorenzo has CKD and his renal functions had been fairly stable. His blood pressure is at goal. He is tolerating angiotensin receptor kristian. He avoids nonsteroidal anti-inflammatories and maintain good hydration . 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 He recently had urinary retention with a microscopic hematuria and was suggested to have cystoscopy for which he has seen Urology. He will need a PKD gene testing . He will be a candidate for SGLT 2 i at next visit for his CKD. I did not make any medication changes today. All questions answered. 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
== END 2024-05-21 10:24 | disposition home or self-care (01) ==
PROVIDERS: PCP Family Medicine; Visit Provider Internal Medicine Nephrology
DX: I12.9 Hypertensive chronic kidney disease with stage 1 through stage 4 chronic kidney disease, or unspecified chronic kidney disease (principal); N18.31 Chronic kidney disease, stage 3a; N28.1 Cyst of kidney, acquired; R31.29 Other microscopic hematuria; E83.59 Other disorders of calcium metabolism; E83.52 Hypercalcemia
CPT/HCPCS: 99214

== ENCOUNTER → 2024-05-21 09:29 | Outpatient (BNVA) | payer BC, SELFPAY | PROVIDERS: PCP Family Medicine; Visit Provider Internal Medicine Nephrology ==

== ENCOUNTER 2024-05-28 10:59 | Outpatient (AMB) | payer BC, SELFPAY ==
--- NOTE | 2024-05-28 11:13 | MHC.OFFVIS ---
Intake Visit Reasons: PVR/Urinalysis Check Intake Note: Patient is present for PVR/URINALYSIS CHECK Urology Medication:TAMSULOSIN,TESTOSTERONE Antibiotic Allergy:INDOCIN Blood Thinner:NONE Last PVR:58ML'S Todays PVR:271ML'S Lamp Assembler Required: No Allergies fentanyl [FENTANYL] Allergy (Unknown, Verified 05/28/24 11:26) ANGIOEDEMA From INDOCIN Adverse Reaction (Unknown, Uncoded 05/28/24 11:26) HEART PALPITATIONS HPI Comments Details: Rashard is a pleasant male. He is a patient of . 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 - erectile dysfunction Primary issue and concern today as anorgasmia Discussed mechanism Pharmaceutical options are available however success rate runs proximally 70% Will try dopamine agonist Erectile dysfunction Uses - Vardalifil with good success for maintaining erections Low testosterone Has been on replacement for many years Notes different responses to generic versus branded injectables Advice regarding finding different sources particularly through compounding pharmacist Names provided [facility] Medical History CKD (chronic kidney disease) Surgical History History of back surgery Hx of cholecystectomy Hx of total thyroidectomy Family History Father Cancer Social History Alcohol intake: never Patient Tobacco Use Status: Former Tobacco user Review of Systems Const Denies chills and Denies fever(s) Card Reports no additional complaints and Denies syncope Resp Denies cough GI Denies abdominal pain and Denies heartburn Reports as per HPI and Denies change in libido Neuro Denies syncope Psych Denies change in libido Endo Denies change in libido Physical Exam Const General: cooperative, healthy appearing, comfortable and no acute distress Orientation/consciousness: patient oriented x3 HEENT Face and sinus: Yes normal facial exam Mouth: moist mucous membranes Neck Neck: Yes normal visual inspection, Yes full ROM and Yes trachea midline Chest Chest palpation & inspection: normal inspection of the chest Resp Effort & Inspection: normal respiratory effort, able to speak in complete sentences and no respiratory distress GI Inspection: Yes normal to inspection Back/Spine/Pelvis Cervical Spine: normal cervical lordosis Thoracic/Lumbar Spine: thoracic and lumbar spine normal to inspection Skin General skin exam: no rashes or lesions noted Neuro General: patient oriented x3, gait normal, tone normal and moves all extremities Extrem General: Yes normal to inspection and Yes capillary refill normal Office Procedures Post Void Residual Post Residual Void Post Void Residual (PVR): 271 [id number]-Aqru Void Residual by ultrasound Results AMB Urinalysis, Automated UA Leukoctes 0 Randy/uL Last Edit by ANDREW Martinez on 05/28/24 11:14 UA Nitrite Negative Last Edit by Kathy Bello CCM on 05/28/24 11:14 UA Urobilinogen 0.2 mg/dL Last Edit by ANDREW Martinez on 05/28/24 11:14 UA Protein 100 mg/dL Last Edit by Kathy Bello CCM on 05/28/24 11:14 UA pH 6.0 Last Edit by Kathy Bello CCM on 05/28/24 11:14 UA Blood 0 Israel/uL Last Edit by Kathy Bello CCM on 05/28/24 11:14 UA Specific [place]rose 1.015 Last Edit by ANDREW Martinez on 05/28/24 11:14 UA Ketone Negative Last Edit by ANDREW Martinez on 05/28/24 11:14 UA Bilirubin 0 mg/dL Last Edit by Kathy Bello CCM on 05/28/24 11:14 UA Glucose 100 mg/dL Last Edit by Kathy Bello CCM on 05/28/24 11:14 Results Reviewed Results Reviewed: Laboratory Last Values Urine pH (Auto) 6.0 05/28/24 11:13 Specific [place] (Auto) 1.015 05/28/24 11:13 Urine Protein (Auto) 100 mg/dL 05/28/24 11:13 Glucose (UA)(Auto) 100 mg/dL 05/28/24 11:13 Urine Ketones (Auto) Negative 05/28/24 11:13 Urine Blood (Auto) 0 Israel/uL 05/28/24 11:13 Urine Nitrite (Auto) Negative 05/28/24 11:13 Urine Bilirubin (Auto) 0 mg/dL 05/28/24 11:13 Urine Urobilinogen (Auto) 0.2 mg/dL 05/28/24 11:13 Leukocyte Esterase (Auto) 0 Randy/uL 05/28/24 11:13 Assessment & Plan Assessment & Plan (1) Low testosterone: Code(s): R79.89 - Other specified abnormal findings of blood chemistry Category: Medical (2) 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 No major barriers to patient understanding were identified. An opportunity to ask questions regarding the treatment plan was provided. All questions were answered. The patient expressed understanding and agreement with the above treatment plan. The patient is aware they should contact our office by phone for worsening of their current condition or the appearance of new urologic symptoms. Compliance is encouraged with any medications and followup testing that is ordered. It is a privilege to participate in the urologic care of your patient. If you have any questions or concerns regarding treatment for the above conditions, or other urologic issues, please do not hesitate to contact me. The office telephone contact is [phone]. This note is constructed using voice recognition software. While every effort has been made to ensure accuracy key account coordinator errors may have been included. 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
--- OUTSIDE RECORDS SUMMARY | 2024-05-28 13:16 | XMS_ITS | Continuity of Care Document ---
Author Organization [place] - [facility], [facility] Address [address] [place] [address] Care Team Providers Care Securities Adviser Name Role Phone EDUARDO EVERETT Primary Care Provider Assessment Encounter Date Assessment Date Assessment LastModified [...] Sensorineur al hearing loss of bilateral ears [id number] Active 2023 ISAÍAS JAMES, GUILLAUME 100 [facility] [address], [place], [address], [facility] 4 13:57:57 Bilateral tinnitus 5861712032610 Active 2023 CARLA BETH PA-C [address] [facility] [address], [place], [address], [facility] 14:36:37 Problem Notes None recorded. Procedures Surgical History Date Name Laterality Status Provider Name and Address Organization Details Recorded Time 02/26/2024 Comp Audio with Tymps (93032 & 12951) completed ISAÍAS JAMES, GUILLAUME 100 [facility] [address], [place], [address], [facility] 02/26/2024 13:57:47 Imaging Results None recorded. Procedure Notes None recorded. Medical Equipment None [...] Not Available Not Available Not Available Hypodermic Aniwa 23 gauge x 1 USE DIRECTED TO ADMINISTER active Not Available Not Available N ot Available terbinafine HCl 250 mg tablet TAKE 1 TABLET BY MOUTH EVERY DAY active Not Available Not Available No t Available BD Regular Bevel Aniwa 18 gauge x 1 USE DIRECTED FOR [...] Available No t Available BD Regular Bevel Aniwa 22 gauge x 1 USE DIRECTED TO [...] Updated DateTime 02/26/2024 175.26 cm 27.3 kg/m2 [address]158.[address] - [facility] 02/26/2024 14:29:31 Social History None recorded. Functional Status None recorded. Mental Status None recorded. Family History Nothing Reported. Medical History No medical history recorded. Past Encounters Encounter ID Performer Location Encounter Start Date Encounter Closed Date Diagnosis/Indication Diagnosis SNOMED-CT Code Diagnosis ICD10 Code Diagnosis Note [id number] CARLA BETH PA-C [facility] on [address] [place] [address] 02/26/2024 13:42:35 02/26/2024 14:50:54 Sensorineural hearing loss of bilateral ears 736905890 H90.3 Audiologic al evaluation results: Right ear: [...] not maintain a hermetic seal}} Bilateral tinnitus 41430 77355 102 H93.13 Health Concerns Section Related Observation LastModified by Organization Detai ls LastModified Time None Recorded Concern Status LastModified by Organization Details LastModified Time None Recorded Payers Encounter Date Sequence Insurance Name Policy Number Policy Gregorio Covered Member ID Gregorio Member ID Guarantor Name 02/26/2024 1 [facility] [place] (PPO) [id number] Ashley Lorenzo [id number] 25 Rashard Lorenzo Notes Date Note Type [...] he hears fairly well.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 His father had hearing loss and wore hearing aids. CARLA BETH PA-C [address] [place] [address], [place], [address], [facility] - [facility] 02/26/2024 14:36:54
--- OUTSIDE RECORDS SUMMARY | 2024-05-28 13:16 | XMS_ITS | Data Portability ---
Author Organization [place] - [facility], Allergy Address [address] [place] [address] Care Team Providers Care Home Planning Consultant Salesperson Name Role Phone EDUARDO EVERETT Primary Care [...] Sensorineur al hearing loss of bilateral ears 312974189 Active 2023 ISAÍAS ERIKA, GUILLAUME 100 [facility] [address], [place], [address], [facility] 13:57:57 Bilateral tinnitus 8767333274009 Active 2023 CARLA BETH PA-C 100 [facility] [address], [place], [address], [facility] 14:36:37 Problem Notes None recorded. Procedures Surgical History Date Name Laterality Status Provider Name and Address Organization Details Recorded Time 02/26/2024 Comp Audio with Tymps (24365 & 84633) completed ISAÍAS CROSSANTHONY, GUILLAUME 100 [facility] [address], [place], [address], [facility] 02/26/2024 13:57:47 Imaging Results Imaging Date Name [...] Not Available Not Available Not Available Hypodermic Wallace 23 gauge x 1 USE DIRECTED TO ADMINISTER active Not Available Not Available N ot Available terbinafine HCl 250 mg tablet TAKE 1 TABLET BY MOUTH EVERY DAY active Not Available Not Available No t Available BD Regular Bevel Wallace 18 gauge x 1 USE DIRECTED FOR [...] Available No t Available BD Regular Bevel Wallace 22 gauge x 1 USE DIRECTED TO [...] Updated DateTime 02/26/2024 175.26 cm 27.3 kg/m2 91948.59 g Marium [place] [facility] 02/26/2024 14:29:31 Social History None recorded. Functional Status None recorded. Mental Status None recorded. Family History Nothing Reported. Medical History No medical history recorded. Past Encounters Encounter ID Performer Location Encounter Start Date Encounter Closed Date Diagnosis/Indication Diagnosis SNOMED-CT Code Diagnosis ICD10 Code Diagnosis Note [id number] CARLA BETH PA-C [facility] on [address] [place] [address] 02/26/2024 13:42:35 02/26/2024 14:50:54 Sensorineural hearing loss of bilateral ears 352674028 H90.3 Audiologic al evaluation results: Right ear: [...] not maintain a hermetic seal}} Bilateral tinnitus 18473 86516 102 H93.13 Health Concerns Section Related Observation LastModified by Organization Detai ls LastModified Time None Recorded Concern Status LastModified by Organization Details LastModified Time None Recorded Advance Directives Directive None Recorded Payers Encounter Date Sequence Insurance Name Policy Number Policy Gregorio Covered Member ID Gregorio Member ID Guarantor Name 02/26/2024 1 [facility] ([id number]) [id number] Ashley Lorenzo [id number] 25 Rashard Lorenzo Notes Date Note Type [...] he hears fairly well.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 His father had hearing loss and wore hearing aids. CARLA BETH PA-C [address] [place] [address],[place] [address], [place], [address], [facility] - [facility] 02/26/2024 14:36:54
== END 2024-05-28 12:26 | disposition home or self-care (01) ==
PROVIDERS: PCP Family Medicine; Visit Provider Urology
DX: R79.89 Other specified abnormal findings of blood chemistry (principal); F52.32 Male orgasmic disorder; Z13.9 Encounter for screening, unspecified
CPT/HCPCS: 99214

== ENCOUNTER → 2024-05-28 10:59 | Outpatient (BNVA) | payer BC, SELFPAY | PROVIDERS: PCP Family Medicine; Visit Provider Urology | DX: F52.32 Male orgasmic disorder (principal); R79.89 Other specified abnormal findings of blood chemistry; N52.9 Male erectile dysfunction, unspecified | CPT/HCPCS: 51798; 81003 ==

== ENCOUNTER 2024-08-04 11:13 | Outpatient (AMB) | payer BC, SELFPAY ==
--- NOTE | 2024-08-04 11:15 | MHC.OFFVIS ---
Intake Visit Reasons: 2 month follow up Intake Note: Patient is present for 2M F/U Urology Medication:CABERGOLINE Antibiotic Allergy:NONE Blood Thinner:NONE Project Hire Required: No Allergies fentanyl [FENTANYL] Allergy (Unknown, Verified 08/04/24 11:15) ANGIOEDEMA From INDOCIN Adverse Reaction (Unknown, Uncoded 08/04/24 11:15) HEART PALPITATIONS HPI Comments Details: Rashard is a pleasant male. He is a patient of . 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 - erectile dysfunction Telemedicine Evaluation 15 min Consultation [employer] Jessica Video Follow-up after trial of dopamine agonist for anorgasmia Had interaction with Prilosec Is planning on repeat trial of medication Six-month follow-up Erectile dysfunction Uses - Vardalifil with good success for maintaining erections Low testosterone Has been on replacement for many years Notes different responses to generic versus branded injectables Advice regarding finding different sources particularly through compounding pharmacist Names provided [facility] Medical History CKD (chronic kidney disease) Surgical History History of back surgery Hx of cholecystectomy Hx of total thyroidectomy Family History Father Cancer Social History Alcohol intake: never Patient Tobacco Use Status: Former Tobacco user Review of Systems Const All systems reviewed & are unremarkable except as noted in HPI and below Reports no additional complaints Resp Reports no additional complaints GI Reports no additional complaints Reports as per HPI Musc Reports no additional complaints Physical Exam Telemedicine evaluation Appropriate responses Regular breathing rate and rhythm HEENT Head: Yes normal to inspection Ears: hearing grossly normal bilaterally Eyes General: appearance normal, both eyes and all related structures Neck Neck: Yes normal visual inspection Chest Chest palpation & inspection: normal inspection of the chest Resp Effort & Inspection: normal respiratory effort and able to speak in complete sentences Telehealth Telehealth Telehealth Platform: [employer] Location of provider rendering services: practice address Location of patient: address on file Patient Identification confirmed using: Name, : Yes Telehealth method: video Patient verbally consented to treatment: Yes Patient verbally consented to billing insurance company: Yes Patient informed of any privacy concerns related to visit: Yes Minutes spent on Phone/Video with Pt.: 15 Assessment & Plan Assessment & Plan (1) 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 While every effort has been made to ensure accuracy marketing development representative errors may have been included. Imaging studies, laboratory and physical exam results were discussed and reviewed in detail. No major barriers to patient understanding were identified. An opportunity to ask questions regarding the treatment plan was provided. All questions were answered. The patient expressed understanding and agreement with the above treatment plan. The patient is aware they should contact our office by phone for worsening of their current condition or the appearance of new urologic symptoms. Compliance is encouraged with any medications and followup testing that is ordered. It is a privilege to participate in the urologic care of your patient. If you have any questions or concerns regarding treatment for the above conditions, or other urologic issues, please do not hesitate to contact me. The office telephone contact is [phone]. 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
== END 2024-08-04 11:55 | disposition home or self-care (01) ==
LOC: HO.HUSH 11:13
PROVIDERS: PCP Family Medicine; Visit Provider Urology
DX: F52.32 Male orgasmic disorder (principal)
CPT/HCPCS: 99213

== ENCOUNTER → 2024-08-04 11:13 | Outpatient (BNVA) | payer BC, SELFPAY | PROVIDERS: PCP Family Medicine; Visit Provider Urology ==

== ENCOUNTER 2024-10-06 13:51 | Outpatient (AMB) | payer BC, SELFPAY ==
--- NOTE | 2024-10-06 14:00 | HO.NEPHOV_ITS ---
Vital Signs 10/06/24 14:02 Height 5 ft 9 in Weight 182 lb BMI 26.9 BP 100/60 Blood Pressure Location Rt brachial Position Sitting Pulse 83 Pulse Source Pulse Oximeter Pulse Oximetry (%) 95 Oxygen Delivery Method Room Air Intake Visit Reasons: May follow-up w/labs-LVM Administrative Court Justice Required: No Accompanied by: Self / Same As Patient Allergies fentanyl [FENTANYL] Allergy (Unknown, Verified 10/06/24 14:02) ANGIOEDEMA From INDOCIN Adverse Reaction (Unknown, Uncoded 08/04/24 11:15) HEART PALPITATIONS HPI Comments Details: Mr. Lorenzo is a 58 year old gentleman whom I had the pleasure of seeing in follow-up of for his chronic kidney disease and hypertension. His blood pressure is currently at goal. He does not take any nonsteroidal anti-inflammatories. His serum calcium continues to be labile. He denies nausea, vomiting, confusion, pedal edema, dysuria, orthostatic symptoms, chest pain, paroxysmal nocturnal dyspnea, orthopnea or shortness of breath. He maintains good hydration.All other systems have been reviewed and were negative. [facility] Medical History CKD (chronic kidney disease) Surgical History History of back surgery Hx of cholecystectomy Hx of total thyroidectomy Family History Father Cancer Social History Alcohol intake: never Patient Tobacco Use Status: Former Tobacco user Review of Systems Const All systems reviewed & are unremarkable except as noted in HPI and below Physical Exam Vital Signs: Last Vital Signs Pulse 83 10/06/24 14:02 BP 100/60 10/06/24 14:02 Pulse Ox 95 10/06/24 14:02 Oxygen Delivery Method Room Air 10/06/24 14:02 BMI result Body Mass Index 26.9 Const General: comfortable and no acute distress Orientation/consciousness: patient oriented x3 HEENT Head: Yes normocephalic Mouth: Normal oral and palatal mucosa present Eyes EOM: EOMs intact bilaterally Neck Neck: Yes supple Resp Auscultation: clear to auscultation bilaterally Cardio Jugular venous distension: no JVD Rate: regular rate GI Palpation (GI): Soft to palpation Auscultation: normal bowel sounds General: Yes no CVA tenderness Back/Spine/Pelvis Back: no CVA tenderness Skin General skin exam: no rashes or lesions noted Neuro General: patient oriented x3 and moves all extremities Extrem General: Yes no pedal edema Results Reviewed Nephrology Results: Sodium 142 mmol/L (135-145) 12/12/23 Potassium 4.5 mmol/L (3.3-5.1) 12/12/23 Chloride 102 mmol/L (96-108) 12/12/23 Carbon Dioxide 32 mmol/L (22-29) H 12/12/23 BUN 27 mg/dL (9-16) H 12/12/23 Creatinine 2.06 mg/dL (0.5-1.4) H 12/12/23 Calcium 11.4 mg/dL (8.4-10.2) H 12/12/23 Phosphorus 2.9 mg/dL (2.7-4.5) 12/12/23 PTH Intact 8.1 pg/mL (8.7-77.1) L 12/12/23 Urine Creatinine 96.88 mg/dL 12/12/23 Protein/Creatinin Ratio 1.08 (<0.2) H 12/12/23 Renal US 10/13/23 Assessment & Plan Assessment & Plan (1) CKD (chronic kidney disease) stage 3, GFR 30-59 ml/min: Code(s): N18.30 - Chronic kidney disease, stage 3 unspecified Category: Medical Qualifiers: Chronic kidney disease stage 3 subtype: stage 3a (GFR 45-59) Qualified Code(s): N18.31 - Chronic kidney disease, stage 3a (2) Renal cysts, acquired, bilateral: Code(s): N28.1 - Cyst of kidney, acquired Category: Medical (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 Lorenzo has CKD and his renal functions had been fairly stable. His blood pressure is at goal. He is off angiotensin receptor kristian. He avoids nonsteroidal anti-inflammatories and maintain good hydration . 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 He will need a PKD gene testing . I started him on Jardiance 10 mg at this visit for his CKD. I did not make any other medication changes today. All questions answered. 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
[2024-10-06 14:02] VITALS: BP 100/60; PULSE 83; O2SAT 95; BMI 26.9
--- OUTSIDE RECORDS SUMMARY | 2024-10-06 14:48 | XMS_ITS | Data Portability ---
Author Organization [place] - [facility], Allergy Address [address] [place] [address] Care Team Providers Care Dyed Yarn Operator Name Role Phone EDUARDO EVERETT Primary Care [...] Sensorineur al hearing loss of bilateral ears [id number] Active 2023 ISAÍAS JAMES, AUD [address], [place], [address], [facility] - [facility] 4 13:57:57 Bilateral tinnitus [id number] Active 2023 Analilia petesron, [place] - [facility] 4 14:36:37 Problem Notes None recorded. Procedures Surgical History Date Name Laterality Status Provider Name and Address Organization Details Recorded Time 02/26/2024 Comp Audio with Tymps - 87794 & 10926 completed ISAÍAS JAMES, [address] [facility] [address],[facility] [address], [place], [address], [facility] - [facility] 02/26/2024 13:57:47 Imaging Results None recorded. [...] Not Available Not Available Not Available Hypodermic [place] 23 gauge x 1 USE DIRECTED TO ADMINISTER active Not Available Not Available N ot Available terbinafine HCl 250 mg tablet TAKE 1 TABLET BY MOUTH EVERY DAY active Not Available Not Available No t Available BD Regular Bevel [place] 18 gauge x 1 USE DIRECTED FOR [...] Available No t Available BD Regular Bevel [place] 22 gauge x 1 USE DIRECTED TO [...] Updated DateTime 02/26/2024 175.26 cm 27.3 kg/m2 69892.59 g Marium Hays [place] - [facility] 02/26/2024 14:29:31 Social History None recorded. Functional Status None recorded. Mental Status None recorded. Family History Nothing Reported. Medical History No medical history recorded. Past Encounters Encounter ID Performer Location Encounter Start Date Encounter Closed Date Diagnosis/Indication Diagnosis SNOMED-CT Code Diagnosis ICD10 Code Diagnosis Note [id number] ANALILIA BETH PA-C [facility] [address] [place] [address] 02/26/2024 13:42:35 02/26/2024 14:50:54 Sensorineural hearing loss of bilateral ears 431730517 H90.3 Audiologic al evaluation results: Right ear: Normal sloping to mild sensorineu ral hearing loss with excellent word recognitio n. Left ear: Normal sloping to mild sensorineu ral hearing loss with excellent word recognitio n. 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 His father had hearing loss and wore hearing aids. Analilia peterson [place] - [facility] 02/26/2024 14:36:54
== END 2024-10-06 14:35 | disposition home or self-care (01) ==
LOC: HO.HKA 13:52
PROVIDERS: PCP Family Medicine; Visit Provider Internal Medicine Nephrology
DX: N18.31 Chronic kidney disease, stage 3a (principal); N28.1 Cyst of kidney, acquired; E83.59 Other disorders of calcium metabolism; E83.52 Hypercalcemia; I10 Essential (primary) hypertension
CPT/HCPCS: 99214

== ENCOUNTER 2024-11-05 11:11 | Outpatient (AMB) | payer BC, SELFPAY ==
--- NOTE | 2024-11-05 11:12 | MHC.OFFVIS ---
Intake Visit Reasons: 6m follow up Intake Note: Patient is present for 6M F/U Urology Medication:CABERGOLINE, depo testosterone Antibiotic Allergy:NONE Blood Thinner:NONE Apprentice Painter Hand Required: No Allergies fentanyl (FENTANYL) Allergy (Unknown, Verified 11/05/24 11:31) ANGIOEDEMA From INDOCIN Adverse Reaction (Unknown, Uncoded 08/04/24 11:15) HEART PALPITATIONS HPI Comments Details: Rashard is a pleasant male. He is a patient of . 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 - erectile dysfunction Six-month follow-up Follow-up after trial of dopamine agonist for anorgasmia Minimal benefit He will continue to trial Did discuss use of oxytocin Available through compounding pharmacy - $2.50 per tablet Erectile dysfunction Uses - Vardalifil with good success for maintaining erections Low testosterone Has been on replacement for many years Notes different responses to generic versus branded injectables Advice regarding finding different sources particularly through compounding pharmacist Names provided [facility] Medical History CKD (chronic kidney disease) Surgical History History of back surgery Hx of cholecystectomy Hx of total thyroidectomy Family History Father Cancer Social History Alcohol intake: never Patient Tobacco Use Status: Former Tobacco user Review of Systems Const Denies chills and Denies fever(s) Card Reports no additional complaints and Denies syncope Resp Denies cough GI Denies abdominal pain and Denies heartburn Reports as per HPI and Denies change in libido Neuro Denies syncope Psych Denies change in libido Endo Denies change in libido Physical Exam Const General: cooperative, healthy appearing, comfortable and no acute distress Orientation/consciousness: patient oriented x3 HEENT Face and sinus: Yes normal facial exam Mouth: moist mucous membranes Neck Neck: Yes normal visual inspection, Yes full ROM and Yes trachea midline Chest Chest palpation & inspection: normal inspection of the chest Resp Effort & Inspection: normal respiratory effort, able to speak in complete sentences and no respiratory distress GI Inspection: Yes normal to inspection Back/Spine/Pelvis Cervical Spine: normal cervical lordosis Thoracic/Lumbar Spine: thoracic and lumbar spine normal to inspection Skin General skin exam: no rashes or lesions noted Neuro General: patient oriented x3, gait normal, tone normal and moves all extremities Extrem General: Yes normal to inspection and Yes capillary refill normal Results AMB Urinalysis, Automated UA Leukoctes 0 Randy/uL Last Edit by Rula Cortes MA on 11/05/24 15:37 UA Nitrite Negative Last Edit by Rula Cortes MO on 11/05/24 15:37 UA Urobilinogen 3.5 mg/dL Last Edit by Rula Cortes MA on 11/05/24 15:37 UA Protein 0.3 mg/dL Last Edit by Rula Cortes MO on 11/05/24 15:37 UA pH 6.0 Last Edit by Rula Cortes MO on 11/05/24 15:37 UA Blood 25 Israel/uL Last Edit by Rula Cortes MO on 11/05/24 15:37 UA Specific Mangham 1.010 Last Edit by Rula Cortes MA on 11/05/24 15:37 UA Ketone Negative Last Edit by Rula Cortes MA on 11/05/24 15:37 UA Bilirubin 0 mg/dL Last Edit by Rula Cortes MO on 11/05/24 15:37 UA Glucose 60 mg/dL Last Edit by Rula Cortes MO on 11/05/24 15:37 Results Reviewed Results Reviewed: Laboratory Last Values Urine pH (Auto) 6.0 11/05/24 14:26 Specific Mangham (Auto) 1.010 11/05/24 14:26 Urine Protein (Auto) 0.3 mg/dL 11/05/24 14:26 Glucose (UA)(Auto) 60 mg/dL 11/05/24 14:26 Urine Ketones (Auto) Negative 11/05/24 14:26 Urine Blood (Auto) 25 Israel/uL 11/05/24 14:26 Urine Nitrite (Auto) Negative 11/05/24 14:26 Urine Bilirubin (Auto) 0 mg/dL 11/05/24 14:26 Urine Urobilinogen (Auto) 3.5 mg/dL 11/05/24 14:26 Leukocyte Esterase (Auto) 0 Randy/uL 06/27/25 14:26 Assessment & Plan Assessment & Plan (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 While every effort has been made to ensure accuracy block sawyer errors may have been included. Imaging studies, laboratory and physical exam results were discussed and reviewed in detail. No major barriers to patient understanding were identified. An opportunity to ask questions regarding the treatment plan was provided. All questions were answered. The patient expressed understanding and agreement with the above treatment plan. The patient is aware they should contact our office by phone for worsening of their current condition or the appearance of new urologic symptoms. Compliance is encouraged with any medications and followup testing that is ordered. It is a privilege to participate in the urologic care of your patient. If you have any questions or concerns regarding treatment for the above conditions, or other urologic issues, please do not hesitate to contact me. The office telephone contact is [phone]. 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
--- OUTSIDE RECORDS SUMMARY | 2024-11-05 12:23 | XMS_ITS | Data Portability ---
Author Organization [place] - [facility], Allergy Address [address] [place] [phone] Care Team Providers Care Iron Worker Apprentice Name Role Phone EDUARDO EVERETT Primary Care Provider [phone] Assessment Encounter Date Assessment Date Assessment LastModified [...] Sensorineur al hearing loss of bilateral ears [id number] Active 2023 ISAÍAS JAMES, [address] [facility] [address], [place], [address], [facility] - [facility] 4 13:57:57 Bilateral tinnitus [id number] Active 2023 Analilia peterson [place] - [facility] [place] 14:36:37 Problem Notes None recorded. Procedures Surgical History Date Name Laterality Status Provider Name and Address Organization Details Recorded Time 02/26/2024 Comp Audio with Tymps - 06143 & 63955 completed ISAÍAS JAMES, AUD [address] [facility] [address], [place], [address], [facility] - [facility] [...] Not Available Not Available Not Available Hypodermic [place] 23 gauge x 1 USE DIRECTED TO ADMINISTER active Not Available Not Available N ot Available terbinafine HCl 250 mg tablet TAKE 1 TABLET BY MOUTH EVERY DAY active Not Available Not Available No t Available BD Regular Bevel [place] 18 gauge x 1 USE DIRECTED FOR [...] Available No t Available BD Regular Bevel [place] 22 gauge x 1 USE DIRECTED TO [...] Updated DateTime 02/26/2024 175.26 cm 27.3 kg/m2 85177.59 g Marium Hays [place] - [facility] 02/26/2024 14:29:31 Social History None recorded. Functional Status None recorded. Mental Status None recorded. Family History Nothing Reported. Medical History No medical history recorded. Past Encounters Encounter ID Performer Location Encounter Start Date Encounter Closed Date Diagnosis/Indication Diagnosis SNOMED-CT Code Diagnosis ICD10 Code Diagnosis Note [id number] ANALILIA BETH PA-C [facility] on [address] [place] [address] 02/26/2024 13:42:35 02/26/2024 14:50:54 Sensorineural hearing loss of bilateral ears [id number] H90.3 Audiologic al evaluation results: Right ear: Normal sloping to mild sensorineu ral hearing loss with excellent word recognitio n. Left ear: Normal sloping to mild sensorineu ral hearing loss with excellent word recognitio n. 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 His father had hearing loss and wore hearing aids. Analilia peterson [place] - [facility] 02/26/2024 14:36:54
== END 2024-11-05 12:28 | disposition home or self-care (01) ==
LOC: HO.HUSH 11:11
PROVIDERS: PCP Family Medicine; Visit Provider Urology
DX: Z13.9 Encounter for screening, unspecified (principal); F52.32 Male orgasmic disorder
CPT/HCPCS: 99213

== ENCOUNTER → 2024-11-05 11:11 | Outpatient (BNVA) | payer BC, SELFPAY | PROVIDERS: PCP Family Medicine; Visit Provider Urology | DX: F52.32 Male orgasmic disorder (principal) | CPT/HCPCS: 81003 ==

== ENCOUNTER 2025-02-04 10:15 | Outpatient (AMB) | payer BC, SELFPAY ==
[2025-02-04 10:21] VITALS: BP 132/80; PULSE 82; O2SAT 97; BMI 26.0
--- NOTE | 2025-02-04 10:21 | HO.NEPHOV ---
Vital Signs 02/04/25 10:21 Height 5 ft 9 in Weight 176 lb 2 oz BMI 26.0 BP 132/80 Blood Pressure Location Lt brachial Position Sitting Pulse 82 Pulse Source Pulse Oximeter Pulse Oximetry (%) 97 Oxygen Delivery Method Room Air Intake Visit Reasons: 4 MO FU-Conf Baseball Glove Stuffer Required: No Accompanied by: Self / Same As Patient Allergies fentanyl (FENTANYL) Allergy (Unknown, Verified 02/04/25 10:21) ANGIOEDEMA From INDOCIN Adverse Reaction (Unknown, Uncoded 08/04/24 11:15) HEART PALPITATIONS HPI Comments Details: Mr. Lorenzo is a 59 year old gentleman whom I had the pleasure of seeing in follow-up of for his chronic kidney disease and hypertension. His blood pressure is currently at goal. He does not take any nonsteroidal anti-inflammatories. His serum calcium continues to be labile. He denies nausea, vomiting, confusion, pedal edema, dysuria, orthostatic symptoms, chest pain, paroxysmal nocturnal dyspnea, orthopnea or shortness of breath. He maintains good hydration.All other systems have been reviewed and were negative. [facility] Medical History CKD (chronic kidney disease) Surgical History History of back surgery Hx of cholecystectomy Hx of total thyroidectomy Family History Father Cancer Social History Alcohol intake: never Patient Tobacco Use Status: Former Tobacco user Review of Systems Const All systems reviewed & are unremarkable except as noted in HPI and below Physical Exam Vital Signs: Last Vital Signs Pulse 82 02/04/25 10:21 BP 132/80 02/04/25 10:21 Pulse Ox 97 02/04/25 10:21 Oxygen Delivery Method Room Air 02/04/25 10:21 BMI result Body Mass Index 26.0 Const General: comfortable and no acute distress Orientation/consciousness: patient oriented x3 HEENT Head: Yes normocephalic Mouth: Normal oral and palatal mucosa present Eyes EOM: EOMs intact bilaterally Neck Neck: Yes supple Resp Auscultation: clear to auscultation bilaterally Cardio Jugular venous distension: no JVD Rate: regular rate GI Palpation (GI): Soft to palpation Auscultation: normal bowel sounds General: Yes no CVA tenderness Back/Spine/Pelvis Back: no CVA tenderness Skin General skin exam: no rashes or lesions noted Neuro General: patient oriented x3 and moves all extremities Extrem General: Yes no pedal edema Assessment & Plan Assessment & Plan (1) Hypertension: Code(s): I10 - Essential (primary) hypertension Category: Medical Qualifiers: Hypertension type: primary hypertension Qualified Code(s): I10 - Essential (primary) hypertension (2) 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 Lorenzo has CKD and his renal functions had been fairly stable. His blood pressure is at goal. He is off angiotensin receptor kristian. He avoids nonsteroidal anti-inflammatories and maintain good hydration . 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 He will need a PKD gene testing . He is on Jardiance 10 mg which I plan to increase to 25 mg at next visit . I did not make any other medication changes today. All questions answered. Follow-up given Orders: Orders Vitamin D 1,25 dihydroxy 4 Months E83.52 - Hypercalcemia, E83.59 - Other disorders of calcium metabolism, I10 - Essential (primary) hypertension, N18.31 - Chronic kidney disease, stage 3a, N28.1 - Cyst of kidney, acquired Protein Creatinine Ratio, Ur 4 Months E83.52 - Hypercalcemia, E83.59 - Other disorders of calcium metabolism, I10 - Essential (primary) hypertension, N18.31 - Chronic kidney disease, stage 3a, N28.1 - Cyst of kidney, acquired Vitamin D 1,25 dihydroxy Today E83.52 - Hypercalcemia, E83.59 - Other disorders of calcium metabolism, I10 - Essential (primary) hypertension, N18.31 - Chronic kidney disease, stage 3a, N28.1 - Cyst of kidney, acquired Hemoglobin A1c Today E83.52 - Hypercalcemia, E83.59 - Other disorders of calcium metabolism, I10 - Essential (primary) hypertension, N18.31 - Chronic kidney disease, stage 3a, N28.1 - Cyst of kidney, acquired Calcium 4 Months E83.52 - Hypercalcemia, E83.59 - Other disorders of calcium metabolism, I10 - Essential (primary) hypertension, N18.31 - Chronic kidney disease, stage 3a, N28.1 - Cyst of kidney, acquired Electrolytes 4 Months E83.52 - Hypercalcemia, E83.59 - Other disorders of calcium metabolism, I10 - Essential (primary) hypertension, N18.31 - Chronic kidney disease, stage 3a, N28.1 - Cyst of kidney, acquired Blood Urea Nitrogen 4 Months E83.52 - Hypercalcemia, E83.59 - Other disorders of calcium metabolism, I10 - Essential (primary) hypertension, N18.31 - Chronic kidney disease, stage 3a, N28.1 - Cyst of kidney, acquired Creatinine 4 Months E83.52 - Hypercalcemia, E83.59 - Other disorders of calcium metabolism, I10 - Essential (primary) hypertension, N18.31 - Chronic kidney disease, stage 3a, N28.1 - Cyst of kidney, acquired Calcium Today E83.52 - Hypercalcemia, E83.59 - Other disorders of calcium metabolism, I10 - Essential (primary) hypertension, N18.31 - Chronic kidney disease, stage 3a, N28.1 - Cyst of kidney, acquired Electrolytes Today E83.52 - Hypercalcemia, E83.59 - Other disorders of calcium metabolism, I10 - Essential (primary) hypertension, N18.31 - Chronic kidney disease, stage 3a, N28.1 - Cyst of kidney, acquired Blood Urea Nitrogen Today E83.52 - Hypercalcemia, E83.59 - Other disorders of calcium metabolism, I10 - Essential (primary) hypertension, N18.31 - Chronic kidney disease, stage 3a, N28.1 - Cyst of kidney, acquired Creatinine Today E83.52 - Hypercalcemia, E83.59 - Other disorders of calcium metabolism, I10 - Essential (primary) hypertension, N18.31 - Chronic kidney disease, stage 3a, N28.1 - Cyst of kidney, acquired Coding Level of Care Code Est Pt Level 4 (73542) Diagnoses Primary hypertension I10 Hypertension type: primary hypertension 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
--- OUTSIDE RECORDS SUMMARY | 2025-02-04 11:26 | XMS_ITS | Encounter Summary ---
Author Organization [facility] Address [address] [place] [address] Phone Care Team Providers Care Train Station Agent Name Role Phone Carl Kent MD Primary Care Provider Encounter Details Date Type Department Care Team (Late st Contact Info) Description 02/04/2025 11:26 AM EDT Hospital Encounter [facility] [address] [place] [address] Benson Ng MD [address] [facility] [address] [place] [address] Social History Tobacco Use Types Packs/Day Years Used Date Smoking Tobacco: Former Cigarettes Q uit: 05/12/1991 Smokeless Tobacco: Former Alcohol Use Standard Drinks/Week Comments Yes 2 (1 standard drink = 0.6 oz pur e alcohol) Education Answer Date Recorded Are you interested in more education? Not on wayne e 09/06/2022 Are you concerned about learning? Not on file 09/06/2022 No 09/06/2022 No 09/06/2022 Digital Access Answer Date Recorded No 10/06/2022 No 10/06/2022 No 10/06/2022 Reliable internet access at home? Not on file 10/06/2022 Device with a working camera? 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 Not on file Not on file documented as of this encounter Plan of Treatment Upcoming Encounters Date Type Department Care Team ([facility] st Contact Info) Description 06/10/2025 11:00 AM EST Office Visit [facility] [address] [place] [address] Unknown, Unknown, Lorin Lal, PACKAGING SALES [address] [place] [address] documented as of this encounter Visit Diagnoses Not on filedocumented in this encounter Care Teams Train Station Agent Relationship Specialty Start Date End Date Carl Kent MD PCP - General Family Medicine 05/31/16 LUZ NG [address] [place] [address], [address] [place] [address] Nephrology 06/06/16 documented as of this encounter Additional Source Comments The information contained in this document represents components of the legal health record. It is not the complete legal health record.[facility]
--- OUTSIDE RECORDS SUMMARY | 2025-02-04 11:30 | XMS_ITS | Encounter Summary ---
Author Organization [facility] Address [address] [facility] [place] [address] Phone Care Team Providers Care Slps Name Role Phone Carl Kent MD Primary Care Provider [phone] Encounter Details Date Type Department Care Team (Late Contact Info) Description 05/25/[address] [facility] [address] [place] [id number] Carl Kent MD [address] [place] [phone] [email or web address] Essential hypertension, malignant (Primary Dx) Social History Tobacco Use Types Packs/Day Years Used Date Smoking Tobacco: Former Cigarettes Q uit: 05/12/1991 Smokeless Tobacco: Former Alcohol Use Standard Drinks/Week Comments Yes 0 (1 standard drink = 0.6 oz pur e alcohol) 1-2 per wk Sex and Gender Information Value Date Recorded Sex Assigned at Male 02/26/2018 2:57 PM EDT Legal Sex Male 4:16 PM EST Gender Identity Male 02/26/2018 2:57 PM EDT Sexual Orientation Straight 02/26/2018 2: 57 PM EDT 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 Not on file Not on file documented as of this encounter Plan of Treatment Upcoming Encounters Date Type Department Care Team (Late st Contact Info) Description 06/10/2025 11:00 AM EST Office Visit [facility] [address] [place] [address] Unknown, Unknown, Lorin Lal, LOOSELEAF BINDER COVERER [address] [place] [address] [email or web address] documented as of this encounter Results * Uric acid (05/25/2018 9:50 AM EST) URIC ACID 5.3 2.4 - 7.0 mg/dL [facility] Blood 05/25/2018 9:50 AM EST 05/25/2018 9:57 AM EST us Carl Kent MD LAB BLOOD ORDERABLES Final Result [facility] [address] [place] [address] * (ABNORMAL) Comprehensive metabolic panel (05/25/2018 9:50 AM EST) SODIUM 143 133 - 146 mmol/L [facility] POTASSIUM 4.2 3.3 - 5.1 mmol/L [facility] CHLORIDE 105 96 - 108 mmol/L [facility] CO2 29 21 - 35 mmol/L [facility] BUN 21(H) 6 - 19 mg/dL [facility] CREATININE 1.50 0.5 - 1.5 mg/dL [facility] GLUCOSE 93 70 - 99 mg/dL [facility] ALBUMIN 3.9 3.9 - 4.8 g/dL [facility] TOTAL PROTEIN 6.4(L) 6.5 - 8.0 g/dL [facility] CALCIUM 11.0(H) 8.4 - 10.3 mg/dL [facility] ALKALINE PHOSPHATASE 63 39 - 117 U/L [facility] TOTAL BILIRUBIN 0.5 0.0 - 1.2 mg/dL [facility] AST 23 0 - 37 U/L [facility] ALT 25 0 - 40 U/L [facility] GLOBULIN 2.5 1 - 4.8 g/dL [facility] EGFR 52(L) >59 mL/min/1.7 3m2 [facility] Comment:If patient is black, multiply result by 1.159. Estimated glomerular filtration rate calculated using the CKD-EPI equation. ANION GAP 13 10 - 20 mmol/L [facility] Blood 05/25/2018 9:50 AM EST 05/25/2018 9:57 AM EST Carl Kent MD LAB BLOOD ORDERABLES Final Result [facility] [address] [place] [address] documented in this encounter Visit Diagnoses Diagnosis Essential hypertension, malignant- Primary documented in this encounter Care Teams Slps Relationship Specialty Start Date End Date Carl Kent MD PCP - General Family Medicine 05/31/16 [facility] [address], [address] [place] [address] Nephrology 06/06/16 documented as of this encounter Additional Source Comments The information contained in this document represents components of the legal health record. It is not the complete legal health record.[facility]
--- OUTSIDE RECORDS SUMMARY | 2025-02-04 11:30 | XMS_ITS | Encounter Summary ---
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 Wish to be (Past 1 Month) No 022 9:38 PM Tod Rodriguez RN 2. Non-Specific Active Suici maria t Thoughts (Past 1 Month) No 07/23/2021 9:38 PM EDT Aron Lilly RN 6. Suicidal Behavior (Lifetime) No 9:38 PM EDT Tod Lilly RN documented as of this encounter Plan of Treatment Upcoming Encounters Date Type Department Care Team (Late st Contact Info) Description 06/10/2025 11:00 AM EST Office Visit [facility] [address] [place] [address] Unknown, Unknown, Lorin Lal, COLLECTIONS MANAGER [address] [place] [address] documented as of this encounter Visit Diagnoses Not on filedocumented in this encounter Care Teams [facility] Relationship Specialty Start Date End Date Carl Kent MD PCP - General Family Medicine 05/31/16 LUZ HUNTLEY [address] [place] [address], [address] [place] [address] Nephrology 06/06/16 documented as of this encounter Additional Source Comments The information contained in this document represents components of the legal health record. It is not the complete legal health record.[facility]
--- OUTSIDE RECORDS SUMMARY | 2025-02-04 11:30 | XMS_ITS | Clinical Summary ---
Author Organization [facility] Address [address] [facility] [address] [place] [address] Phone Care Team Providers Care Building Certifier Name Role Phone Eduardo Everett MD Primary Care Provider [phone] Allergies Active Allergy Reactions Criticality Noted Date Comments Clonidine 01/23/2022 panic attacks Fentanyl Angioedema High 02/18/2014 Fentanyl Hcl 06/06/2016 Indocin (Indomethacin) 06/06/2016 Indomethacin Sodium Shortness Of Breath High 014 Lisinopril Other (See Comments) High 07/28/2020 Ibuprofen 07/21/2021 Nifedipine Mental Status Change High 07/06/2014 Panic attack Medications polyethylene glycol (MIRALAX) 17 gram packet Take 17 g by mouth daily as needed (severe constipation). 8 Active Additional Information Patient not taking.Reported on 01/24/2022 oxyCODONE (OXYCONTIN) 10 mg 12 hr tablet Take 10 mg by mouth 6 (six) times a day. 8 Active NIFEdipine (PROCARDIA XL) 30 MG 24 hr tablet Take 60 mg by mouth 2 (two) times a day. 2 Active docosahexaenoic acid-epa 120-180 mg Cap Take 1 capsule by mouth. Active ALPRAZolam (XANAX) 0.5 MG tablet Take 0.5 mg by mouth. Active tadalafiL (CIALIS, ADCIRCA) 20 MG tablet Take 20 mg by mouth. 2 Active testosterone cypionate (DEPO-TESTOTERO NE) 200 mg/mL injection INECTY 0.8 TO 1 ML IN THE MUSCLE EVERY WEEK 2 Active acetaminophen (TYLENOL) 500 MG tablet Take 500 mg by mouth. 2 Active allopurinol (ZYLOPRIM) 300 MG tablet Take 300 mg by mouth daily. 2 Active calcitonin,salm on,synthetic (MIACALCIN INJ) See Instructions, Inhale 1 spray into a nare daily. Alternate nares daily., Refills 0, Maintenance, 07/25/21 11:01:00 EDT, Instructions Replace Required Details, Partial fill upon patient request if the prescription is for a schedule II opioid drug. 2 Active cloNIDine HCL (CATAPRES) 0.1 MG tablet Take 0.1 mg by mouth 2 (two) times a day. 2 Active levothyroxine (SYNTHROID, LEVOTHROID) 50 MCG tablet 2 Active TURMERIC ORAL Take 475 mg by mouth daily. Active labetaloL (TRANDATE) 200 MG tablet Take 200 mg by mouth 2 (two) times a day. Active docosahexaenoic acid/epa (FISH OIL ORAL) Take 1 capsule by mouth daily. Active ursodioL (ACTIGALL) 300 mg capsule Take 300 mg by mouth 2 (two) times a day. Active Active Problems Problem Noted Date Diagnosed Date Aortic dissection 07/21/2021 Spinal stenosis 03/06/2018 Hypercalcemia 06/10/2017 Spinal stenosis, lumbar axel on, with neurogenic claudication Encounters Date Type Department Care Team Description 02/04/2025 11:26 AM EDT Hospital Encounter [facility] [address] [place] [address] Benson Ng MD 12/31/2024 1:22 PM EDT - 12/31/2024 11:59 PM EDT Hospital Encounter [facility] Pathology [address] [place] [address] Ayana Walls MD Discharge Disposition: Home or Self Care from Last 3 Months Family History Medical History Relation Comments Hearing loss Father Arthritis Maternal Grandfather Arthritis Maternal Grandmother Relation Status Comments Father Maternal Grandfather Maternal Grandmother Social History Tobacco Use Types Packs/Day Years [...] 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 on file Not on file Last Filed Vital Signs Vital Sign Reading Time Taken Comments Blood Pressure 116/82 01/24/2022 1:45 PM EDT Pulse 81 01/24/2022 1:45 PM EDT Temperature 36.1 C (97 F) 01/24/2022 1:30 PM EDT Respiratory Rate 14 01/24/2022 1:45 PM EDT Oxygen Saturation 95% 01/24/2022 1:45 PM EDT Inhaled Oxygen Concentration 28% 03/07/2018 1 2:30 AM EDT Weight 83.9 kg (185 lb) 11/04/2022 3:15 PM EDT Height 175.3 cm (5' 9 ) 11/04/2022 3:15 PM EDT Body Mass Index 27.32 11/04/2022 3:15 PM EDT Plan of Treatment Upcoming Encounters Date Type Department Care Team (Late st Contact Info) Description 06/10/2025 11:00 AM EST Office Visit [facility] [address] [place] [address] Unknown, Unknown, MD Jimenez, Lorin Orosco, NEGOTIATOR [address] [place] [address] [email or web address] Health Maintenance Due Date Last Done Comments BLOOD PRESSURE 1965 DEPRESSION SCREENING 1976 SMOKING Hx and SMOKELESS TOBACCO SCREENING 1977 HIV ONE-TIME SCREENING (18-65 YEARS) 1982 COLOGUARD 2009 FIT TEST 2009 FOBT 2009 SIGMOIDOSCOPY 2009 VIRTUAL COLONOSCOPY 2009 PNEUMOCOCCAL VACCINES (50+ years) (2 of 2 - PCV) 2014 04/24/2012 ZOSTER VACCINES (1 of 2) 2014 INFLUENZA VACCINE (#1) 2024 , 03/30/2020, 03/12/2019, Additional history exists COVID-19 VACCINE ( season) 2025 05/18/2021, 10/11/2020, 09/20/2020 TSH LEVEL 04/20/2025 04/20/2024, 06/12, 04/30/2022, Additional history exists CREATININE LEVEL 08/30/2025 08/30/2024, 10/2024, 04/20/2024, Additional history exists SCREENING FOR DIABETES 04/20/2027 04/20/2024, 2023 Adult Td,Tdap Booster 08/28/2028 08/28/2018, 009 LIPID PANEL 04/20/2029 04/20/2024, 10/10, 09/26/2020, Additional history exists COLONOSCOPY 01/25/2032 01/24/2022 COLORECTAL CANCER SCREENING 01/25/2032 RSV VACCINE (1 - 1-dose 75+ series) 11/19/2039 HEPATITIS C SCREENING Completed 07/22/2021, 022 HEPATITIS A VACCINES Aged Out No long er eligible based on patient's age to complete this topic HIB VACCINES Aged Out No longer eligi ble based on patient's age to complete this topic MENINGOCOCCAL VACCINES (ACWY) Aged Out No longer eligible based on patient's age to complete this topic MENINGOCOCCAL VACCINES (B) Aged Out N o longer eligible based on patient's age to complete this topic Medical Devices Not on file Procedures Procedure Name Priority Date/Time Associated Diagnosis Comments ANATOMIC PATHOLOGY Routine 12/31/2024 12 :00 AM EDT CREATININE/EGFR Routine 08/30/2024 3:40 PM EDT Stage 3 chronic kidney disease, unspecified whether stage 3a or 3b CKD LIPID PANEL Routine 04/20/2024 12:44 PM EST Screening for prostate cancer Routine general medical examination at a health care facility Stage 3 chronic kidney disease, unspecified whether stage 3a or 3b CKD Hypothyroidism, unspecified type TSH Routine 04/20/2024 12:44 PM EST Screening for prostate cancer Routine general medical examination at a health care facility Stage 3 chronic kidney disease, unspecified whether stage 3a or 3b CKD Hypothyroidism, unspecified type GLUCOSE Routine 10/24/2023 8:15 AM EDT Routine general medical examination at a [facility] care facility ENDOSCOPY, COLON 01/24/2022 12:5 5 PM EDT HEPATITIS C ANTIBODY, QUALITATIVE Routine 07/22/2021 5:20 AM EDT from Last 3 Months or Most Recently Relevant to Health Maintenance Results * Anatomic Pathology (12/31/2024 12:00 AM EDT) 12/31/2024 12/31/2024 1:5 4 PM EDT Narrative SEE NARRATIVE - 01/03/2025 12:36 PM EDT [address] [address] [employer]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 Negative for dysplasia. Electronically Signed Out By Dakota Can MD By his/her signature above, the pathologist listed as making the Final Diagnosis certifies that he/she has personally reviewed this case and confirmed or corrected the diagnosis. CLINICAL HISTORY Preoperative diagnosis: GERD Postoperative diagnosis: Normal, retained contents SPECIMENS SUBMITTED: A: GASTROESOPHAGEAL JUNCTION, BIOPSY GROSS DESCRIPTION GASTROESOPHAGEAL JUNCTION, BIOPSY: Received in formalin are 2 irregular phillips-pink soft tissue fragments measuring on average 0.4 x 0.3 x 0.2 cm which are submitted in toto in a single cassette labeled A1. Grossed by: MADDI Gabriel, SHAN[facility] [id number] 12/31/2024 Grossing Staff: [id number] Patient Name: RASHARD DOMINGO : 1965 (Age: 59) Sex: M Institution: [facility] Location: [facility] Date of Operation: 12/31/2024 Date of Reported: 01/03/2025 12:36 Results To: Ayana Walls MD, AB Eduardo Everett MD, [facility] Medical Specialties us Ayana Walls MD PATHOLOGY ORDERABLES Final Result SEE NARRATIVE * (ABNORMAL) Creatinine/eGFR (08/30/2024 3:40 PM EDT) CREATININE 2.60(H) 0.5 - 1.5 mg/dL [facility] EGFR 28(L) >59 mL/min/1.7 3m2 [facility] Comment:Estimated glomerular filtration rate calculated using the CKD-EPI refit equation. Blood 08/30/2024 3:40 PM EDT 08/30/2024 3:47 PM EDT us Benson Ng MD LAB BLOOD ORDERAB LES Final Result [facility] [address] [place] [address] * TSH (04/20/2024 12:44 PM EST) TSH 2.86 0.27 - 4.20 uIU/mL [facility] Blood 04/20/2024 12:4 4 PM EST 04/20/2024 12:51 PM EST Eduardo Everett MD LAB BLOOD ORDERABLES Final Result Performing Organization Address City/[facility]/ZIP Co de Phone Number [address] [address] * (ABNORMAL) Lipid panel (04/20/2024 12:44 PM EST) HDL 43 mg/dL [facility] Comment: Interpretation <40 mg/dL: Low HDL cholesterol (major risk factor for CHD) Greater than or equal to 60 mg/dL: High HDL cholesterol ( negative risk factor for CHD) HDL - cholesterol is affected by a number of factors, e.g. smoking, excerise, hormones, sex and age. CHOLESTEROL 234 0 - 240 mg/dL [facility] TRIGLYCERIDES 273(H) 30 - 160 mg/dL [facility] LDL 136(H) 50 - 129 mg/dL [facility] Comment: LDL levels in terms of risk for coronary heart disease: <100 mg/dL: Optimal 100-129 mg/dL: Near or above optimal 130-159 mg/dL: Borderline high 160-189 mg/dL: High >190 mg/dL: Very High CARDIAC RISK RATIO 5.4(H) 3.4 - 5.0 [facility] Blood 04/20/2024 12:4 4 PM EST 04/20/2024 12:52 PM EST Eduardo Everett MD LAB BLOOD ORDERABLES Final Result Performing Organization Address [facility] Co de Phone Number [address] [address] * Glucose (10/24/2023 8:15 AM EDT) GLUCOSE 99 70 - 99 mg/dL [facility] Blood 10/24/2023 8:15 AM EDT 10/24/2023 8:16 AM EDT Eduardo Everett MD LAB BLOOD ORDERABLES Final Result Performing Organization Address City/[facility]/ZIP Co de Phone Number [address] [address] * ENDOSCOPY, COLON (01/24/2022 12:55 PM EDT) Narrative Transcriptions Ayana Walls MD - 01/24/2022 12:55 PM EDT Patient Name: Aidaneleanor Ellie Attending MD:: AYANA WALLS MD Procedure Date: 01/24/2022 12:55 PM Date of : 1965 Age: 56 Admit Type: Outpatient Gender: Male Room: [place] [address] Referring MD: EDUARDO EVERETT MD Exam Type: Colonoscopy Indications: High risk colon cancer surveillance: Personalhistory of colonic polyps, Last colonoscopy: May 2016 Medications: Propofol per Anesthesia Procedure: Informed consent was obtained from the patientafter discussion of the indications, limitations, alternatives, benefits, and risks of the procedure. Risks specifically discussed include but are not limited to medication reactions, missed lesions, bleeding, perforation, or the need for emergent surgery. Throughout the procedure, the patient's blood pressure, pulse, end-tidal CO2, and oxygensaturations were monitored continuously. The Colonoscope was introduced through the anus and advanced to the terminal ileum, with identificationof the appendiceal orifice and IC valve. The terminal ileum, ileocecal valve, appendiceal orifice, and rectum were photographed. The colonoscopy was performed without difficulty. The patient tolerated the procedure well. The quality of the bowel preparation was good. The bowel preparation usedwas PEG in Gatoraide via split dose instruction. Complications: No immediate complications. Estimated blood loss:None. Findings: The perianal and digital rectal examinations were normal. Pertinent negatives include normal prostate (size, shape, and consistency). Internal hemorrhoids were found duringretroflexion. The hemorrhoids were small. Many medium-mouthed diverticula were found in the sigmoid colon. The exam was otherwise without abnormality. The terminal ileum appeared normal. Retroflexion in the right colon was performed. Impression: - Internal hemorrhoids. - Diverticulosis in the sigmoid colon. - The examination was otherwise normal. - The examined portion of the ileum was normal. - No specimens collected. Recommendation: - Repeat colonoscopy in 5-10 years forsurveillance. AYANA WALLS MD 01/24/2022 1:30:36 PM This report has been signed electronically. Number of Addenda: 0 Note Initiated On: 01/24/2022 12:55 PM Procedure Code(s): --- Professional --- 04848, Colonoscopy, flexible; diagnostic, including collection of specimen(s) by brushing or washing, when performed (separateprocedure) --- Technical --- 71459, Colonoscopy, flexible; diagnostic, including collection of specimen(s) by brushing or washing, when performed (separateprocedure) Diagnosis Code(s): --- Professional --- Z86.010, Personal history of colonic polyps K64.8, Other hemorrhoids K57.30, Diverticulosis of large intestine without perforation or abscess without bleeding --- Technical --- Z86.010, Personal history of colonic polyps K64.8, Other hemorrhoids K57.30, Diverticulosis of large intestine without perforation or abscess without bleeding CPT copyright 2020 [employer]. All rights reserved. The codes documented in this report are preliminary and upon invoice coder reviewmay be revised to meet current compliance requirements. Procedure Date: 01/24/2022 12:55:[address] [place] [address] us Eduardo Everett MD GI PROCEDURE ORDERABLES Fin al Result * Hepatitis C antibody, qualitative (07/22/2021 5:20 AM EDT) HCV ANTIBODY Negative Negative [facility] Comment:Antibodies to HCV no t detected. Does not exclude the possibility of exposure to HCV. Blood 07/22/2021 5:20 AM EDT 07/22/2021 5:47 AM EDT Rajwinder Thapa NEGOTIATOR LAB BLOOD ORDERABLES Fi nal Result [facility] [address] [place] [address] from Last 3 Months or Most Recently Relevant to Health Maintenance [place] [address] [place] [address] OUT OF [facility] PPO [facility] OUT OF [facility] PPO BLUE [place] OUT OF [facility] PPO PPO BLUE [place] OUT OF [facility] PPO BLUE [place] OUT OF [facility] PPO [place]UE [place] OUT OF [facility] PPO BLUE [place] OUT OF STATE PPO PPO Advance Directives For more information, please contact: [phone] (9AM - 5PM [facility], Friday[facility]Friday) Documents on File Type Date Recorded Patient Water Aerobics Instructor Expl anation Healthcare Proxy 08/01/2021 2:47 PM * Full Code (Latest Code Status on File) Date Activated Date Inactivated Comments 07/22/2021 3:42 AM Question Answer Comments Code Status Confirmed With: Patient * Full Code (Presumed) Date Activated Date Inactivated Comments 03/07/2018 1:59 AM 03/10/2018 3:49 PM * Full Code (Presumed) Date Activated Date Inactivated Comments 03/06/2018 12:12 PM 03/07/2018 1:59 AM Healthcare Agents on File Name Relationship Healthcare Agent Relationship Communication Wilberto Domingo Spouse .Primary Health Care Agent (Proxy form on file) Care Teams Building Certifier Relationship Specialty Start Date End Date Eduardo Everett MD [email or web address] PCP - General Family Medicine 05/31/16 LUZ NG [address] [place] [address], [address] [place] [address] Nephrology 06/06/16 Additional Source Comments The information contained in this document represents components of the legal health record. It is not the complete legal health record.[facility]
--- OUTSIDE RECORDS SUMMARY | 2025-02-04 11:30 | XMS_ITS | Encounter Summary ---
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 on file Not on file documented as of this encounter Functional Status * Calculated C-SSRS Risk Score (Lifetime/Recent) Answer Date of Assessment Author No Risk Indicated 07/23/2021 9:38 PM AIDANT Tod Lilly RN * [place] Suicide Severity Rating Scale (Screener/Recent Self-Report) Question [...] Description 06/10/2025 11:00 AM EST Office Visit [facility] [address] [place] [address] Unknown, Unknown, Lorin Lal, RADIOSONDE OPERATOR [address] [place] [address] documented as of this encounter Visit Diagnoses Not on filedocumented in this encounter Care Teams Water Filterer Relationship Specialty Start Date End Date Carl Kent MD PCP - General Family Medicine 05/31/16 [address]Z [address] [place] [address], [address] [place] [address] Nephrology 06/06/16 documented as of this encounter Additional Source Comments The information contained in this document represents components of the legal health record. It is not the complete legal health record.[facility]
--- OUTSIDE RECORDS SUMMARY | 2025-02-04 11:31 | XMS_ITS | Encounter Summary ---
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 file Not on file Not on file documented as of this encounter Plan of Treatment Upcoming Encounters Date Type Department Care Team (Late st Contact Info) Description 06/10/2025 11:00 AM EST Office Visit [facility] [address] [place] [phone] Unknown, Unknown, Lorin Lal, FLANGING OPERATOR [address] [place] [address] documented as of this encounter Visit Diagnoses Not on filedocumented in this encounter Care Teams Sports Analyst Relationship Specialty Start Date End Date Carl Kent MD [email or web address] PCP - General Family Medicine 05/31/[address], [address] [place] [address] Nephrology 06/06/16 documented as of this encounter Additional Source Comments The information contained in this document represents components of the legal health record. It is not the complete legal health record.[facility]
--- OUTSIDE RECORDS SUMMARY | 2025-02-04 11:31 | XMS_ITS | Encounter Summary ---
Author Organization [facility] Address [address] [place] [address] Phone Care Team Providers Care Technical Applications Scientist Name Role Phone Carl Kent MD Primary Care Provider [phone] Encounter Details Date Type Department Care Team (Late st Contact Info) Description 08/30/2021 Documentation Only [facility] [address] [place] [address] Benson Ng MD Social History Tobacco Use Types Packs/Day Years Used Date Smoking Tobacco: Never Smokeless Tobacco: Never Alcohol Use Standard Drinks/Week Comments Yes 0 (1 standard drink = 0.6 oz pure alcohol) Alcoholic Drinks/day: Occasional social drink Sex and Gender Information Value Date Recorded Sex Assigned at Not on file Legal Sex Male 5:03 PM EST Gender Identity Not on file Sexual Orientation Not on file COVID-19 Exposure Response Date Recorded In the last month, have you been in contact with someone who was confirmed or suspected to have Coronavirus / COVID-19? No / Unsure 08/30/2021 10:29 AM EDT documented as of this encounter Plan of Treatment Not on file documented as of this encounter Visit Diagnoses Not on filedocumented in this encounter Care Teams Technical Applications Scientist Relationship Specialty Start Date End Date Carl Kent MD [address] [place] [phone] PCP - General 05/22/20 documented as of this encounter
--- OUTSIDE RECORDS SUMMARY | 2025-02-04 11:31 | XMS_ITS | Encounter Summary ---
Author Organization [facility] Address [address] [place] [address] Phone Care Team Providers Care Orthopedic Surgeon Name Role Phone Carl Kent MD Primary Care Provider Encounter Details Date Type Department Care Team (Latest Contact Info) Description 10/20/2017 Transcribe Orders [facility] [address] [place] [address] Carlos Lorenzo MD [address] [place] [address] Status post parathyroidectomy (Primary Dx) Social History Tobacco Use Types Packs/Day Years Used Date Smoking Tobacco: Former Smokeless Tobacco: Never Alcohol Use Standard Drinks/Week [...] 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 Not on file Not on file documented as of this encounter Plan of Treatment Upcoming Encounters Date Type Department Care Team (Late st Contact Info) Description 06/10/2025 11:00 AM EST Office Visit [facility] [address] [place] [address] Unknown, Unknown, Lorin Lal, VP MARKETING [address] [place] [address] (work) [email or web address] documented as of this encounter Results * Phosphorus (10/20/2017 10:54 AM EDT) PHOSPHORUS 3.1 2.7 - 4.5 mg/dL [facility] Blood 10/20/2017 10:5 4 AM EDT 10/20/2017 11:10 AM EDT us Carlos Lorenzo MD LAB BLOOD ORDERABLES F inal Result [facility] [address] [place], [place] [id number] * (ABNORMAL) Comprehensive metabolic panel (10/20/2017 10:54 AM EDT) SODIUM 138 133 - 146 mmol/L [facility] POTASSIUM 4.8 3.3 - 5.1 mmol/L [facility] CHLORIDE 100 96 - 108 mmol/L [facility] CO2 24 21 - 35 mmol/L [facility] BUN 33(H) 6 - 19 mg/dL [facility] CREATININE 1.70(H) 0.5 - 1.5 mg/dL [facility] GLUCOSE 75 70 - 99 mg/dL [facility] ALBUMIN 4.0 3.9 - 4.8 g/dL [facility] TOTAL PROTEIN 6.7 6.5 - 8.0 g/dL [facility] CALCIUM 10.6(H) 8.4 - 10.3 mg/dL [facility] ALKALINE PHOSPHATASE 55 39 - 117 U/L [facility] TOTAL BILIRUBIN 0.7 0.0 - 1.2 mg/dL [facility] AST 30 0 - 37 U/L [facility] ALT 19 0 - 40 U/L [facility] GLOBULIN 2.7 1 - 4.8 g/dL [facility] EGFR 45(L) >59 mL/min/1.7 3m2 [facility] Comment:If patient is black, multiply result by 1.159. Estimated glomerular filtration rate calculated using the CKD-EPI equation. ANION GAP 19 10 - 20 mmol/L [facility] Blood 10/20/2017 10:5 4 AM EDT 10/20/2017 11:10 AM EDT us Carlos Lorenzo MD LAB BLOOD ORDERABLES F inal Result [address] [address] documented in this encounter Visit Diagnoses Diagnosis Status post parathyroidectomy- Primary Other postprocedural status documented in this encounter Care Teams Orthopedic Surgeon Relationship Specialty Start Date End Date Carl Kent MD PCP - General Family Medicine 05/31/16 LUZ HUNTLEY [address] [place] [address], [address] [place] [address] Nephrology 06/06/16 documented as of this encounter Additional Source Comments The information contained in this document represents components of the legal health record. It is not the complete legal health record.[facility]
--- OUTSIDE RECORDS SUMMARY | 2025-02-04 11:31 | XMS_ITS | Clinical Summary ---
Author Organization [facility] Address [address] [place] [address] Phone Care Team Providers Care Data Mining Analyst Name Role Phone Carl Kent MD Primary Care Provider [phone] Allergies Active Allergy Reactions Criticality Noted Date Comments Clonidine 01/23/2022 panic attacks Fentanyl Anaphylaxis,Other (s ee comments) High 02/18/2014 Other reaction(s): Angiodema Ibuprofen Other (see comments) High 07/28/2020 Indomethacin Other (see comments),Shortness of breath High 02/18/2014 Lisinopril Other (see comments) High 07/28/2020 Nifedipine Other (see comments) High 07/06/2014 Other reaction(s): Other (See Comments) Panic attack Panic attack Medications calcitonin, salmon, (MIACALCIN) 200 UNIT/ACT nasal spray 1 spray 1 (one) time each day Active levothyroxine (SYNTHROID, LEVOTHROID) 50 MCG tablet Take 1 tablet by mouth 1 (one) time each day Active omega-3 (FISH OIL) 1000 MG capsule Take 1 capsule by mouth 1 (one) time each day Active oxyCODONE (ROXICODONE) 10 MG immediate release tablet Take 1 tablet by mouth every 4 (four) hours Active testosterone cypionate (DEPO-TESTOTERO NE) 200 MG/ML injection Active labetalol (NORMODYNE) 200 MG tablet Take 200 mg by mouth in the morning and 200 mg at noon and 200 mg in the evening. 08/02/2021 Active ursodiol (ACTIGALL) 300 MG capsule Take 300 mg by mouth in the morning and 300 mg in the evening. 08/28/2021 Active TURMERIC PO Take 475 mg by mouth 2 (two) times a day Active terbinafine (LamISIL) 250 MG tablet Take 250 mg by mouth 1 (one) time each day 04/30/2022 Active pregabalin (LYRICA) 25 MG capsule Take 25 mg by mouth at bed time 06/13/2022 Active Stendra 200 MG tablet Take 1 tablet by mouth 1 (one) time each day 05/22/2022 Active NIFEdipine XL (PROCARDIA XL) 30 MG 24 hr tablet TAKE 2 TABLETS(60 MG) BY MOUTH IN THE MORNING AND IN THE EVENING 360 tablet 3 10/04/2022 Active tadalafil (CIALIS) 5 MG tablet Take 5 mg by mouth 1 (one) time each day 01/27/2023 Active Active Problems Problem Noted Date Diagnosed Date Stage 3a chronic kidney disease 07/29/2022 Simple renal cyst 02/04/2022 Chronic back pain 08/22/2021 Chronic kidney disease stage 3B 08/22/2021 Gastroesophageal reflux disease 08/22/2021 Hypothyroidism 08/22/2021 Male hypogonadism 08/22/2021 Acute nontraumatic kidney injury 08/22/2021 Dissection of aorta 07/21/2021 Hypertension 04/27/2021 Benign hypertensive renal disease 07/28/2020 Chronic kidney disease 02/18/2014 Essential hypertension 02/18/2014 Hypercalcemia 11/08/2013 Resolved Problems Problem Noted Date Diagnosed Date Resolved Date Spinal stenosis 03/06/2018 07/28/2020 Scoliosis 07/06/2014 07/28/2020 Anxiety disorder 02/18/2014 07/28/2020 Disorder of lumbar disc 02/18/201407/10 Gout 02/18/2014 07/28/2020 Neuropathy 02/18/2014 07/28/2020 Obstructive sleep apnea syndrome 02/18/2014 07/28/2020 Panic attack 02/18/2014 07/28/2020 Primary hyperparathyroidism 12/20/2013 07/28/2020 Overview (07/28/2020): Last Assessment & Plan: Pain control with oxy 10mg TID standing, tylenol, motrin, pain in control this morning CV norvasc and lisinopril for HTN, which was well controlled overnight. Tachycardia improving, was sinus tach on EKG. GI regular diet, SLIV, no issues Endo will consult endocrinology for post op calcium dosing as this is his second operation for primary hyperparathyroidism, the first complicated by post op hypercalcemia; patient follows with Dr. Lorenzo. Rheum allopurinol for gout management Immunizations Immunization Administration Dates Next Due Influenza, Unspecified 04/10/2021,2019,03/12/2019,01/01/2018,06/12,01/10/2016,02/17/2015,03/14/2014,02/18/20 13,04/24/2012,12/28/2010,02/16/2010,07/07/2009 Pfizer SARS-COV-2 05/18/2021,10/11/2020,09/21/19 21 Pneumococcal Polysaccharide 04/24/2012 Tdap 10/24/2008 Family History Medical History Relation Comments Diabetes Father Hypertension Father Relation Status Comments Father Alive Mother Alive Social History Tobacco Use Types Packs/Day Years Used Date Smoking Tobacco: Former Cigarettes Passive Smoke Exposure: Never Smokeless Tobacco: Never Tobacco Cessation:Counseling Given: Not Answered Alcohol Use Standard Drinks/Week Comments Yes 0 (1 standard drink = 0.6 oz pure alcohol) Alcoholic Drinks/day: Occasional social drink Sex and Gender Information Value Date Recorded Sex Assigned at Not on file Legal Sex Male 5:03 PM EST Gender Identity Not on file Sexual Orientation Not on file Last Filed Vital Signs Vital Sign Reading Time Taken Comments Blood Pressure 144/76 02/03/2023 3:42 PM EDT Pulse 86 02/03/2023 3:42 PM EDT Temperature - - Respiratory Rate - - Oxygen Saturation 95% 02/03/2023 3:42 PM EDT Inhaled Oxygen Concentration - - Weight 84.4 kg (186 lb) 02/03/2023 3:42 PM EDT Height 175.3 cm (5' 9 ) 02/09/2020 12:01 PM EDT Body Mass Index 27.47 02/09/2020 12:01 PM EDT Plan of Treatment Health Maintenance Due Date Last Done Comments Pneumococcal Vaccine: 50+ Years (2 of 2 - PCV) 04/24/2013 04/24/2012 Colorectal Cancer Screening: Annual FOBT 2013 Colorectal Cancer Screening: Colonoscopy 2013 Colorectal Cancer Screening: Sigmoidoscopy 2013 Influenza Vaccine (#1) 2025 , 03/30/2020, 03/12/2019, Additional history exists Pneumococcal Vaccine: Peds (0 to 5 Years) and At-Risk Patients (6 to 49 Years) Discontinued 04/24/2012 Hepatitis B Vaccine Aged Out No longe r eligible based on patient's age to complete this topic [place] [address] [place] [address] [facility] Care Teams Data Mining Analyst Relationship Specialty Start Date End Date Carl Kent MD [address] [place] [phone] PCP - General 05/22/20
--- OUTSIDE RECORDS SUMMARY | 2025-02-04 11:31 | XMS_ITS | Encounter Summary ---
Author Organization [facility] Address [address] [place] [address] Phone Care Team Providers Care Rn Telephone Triage Name Role Phone Carl Kent MD Primary Care Provider [phone] Encounter Details Date Type Department Care Team (Late st Contact Info) Description 08/14/2017 Transcribe Orders [facility] [address] [place] [address] Carl Kent MD [address] [place] [address] [email or web address] Mixed hyperlipidemia (Primary Dx) Social History Tobacco Use Types [...] 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 Not on file Not on file documented as of this encounter Plan of Treatment Upcoming Encounters Date Type Department Care Team (Late st Contact Info) Description 06/10/2025 11:00 AM EST Office Visit [facility] [address] [place] [address] Unknown, Unknown, Lorin Lal, TIME STUDY TECHNICIAN [address] [place] [address] jose documented as of this encounter Results * (ABNORMAL) Lipid panel (08/14/2017 7:39 AM EDT) HDL 43 mg/dL [facility] Comment: Interpretation: Risk Level Males Decreased >45 mg/dL Average 40-45 mg/dL Increased <40 mg/dL CHOLESTEROL 262(H) 0 - 240 mg/dL [facility] TRIGLYCERIDES 303(H) 30 - 160 mg/dL [facility] LDL 158(H) 50 - 129 mg/dL [facility] Comment: LDL levels in terms of risk for coronary heart disease: <100 mg/dL: Optimal 100-129 mg/dL: Near or above optimal 130-159 mg/dL: Borderline high 160-189 mg/dL: High >190 mg/dL: Very High CARDIAC RISK RATIO 6.1(H) 3.4 - 5.[address] [facility] Blood 08/14/2017 7:39 AM EDT 08/14/2017 9:09 AM EDT Carl Kent MD LAB BLOOD ORDERABLES Final Result [facility] [address] [place] [address] documented in this encounter Visit Diagnoses Diagnosis Mixed hyperlipidemia- Primary documented in this encounter Care Teams Rn Telephone Triage Relationship Specialty Start Date End Date Carl Kent MD PCP - General Family Medicine 05/31/16 LUZ HUNTLEY [address] [place] [address], [address] [place] [address] Nephrology 06/06/16 documented as of this encounter Additional Source Comments The information contained in this document represents components of the legal health record. It is not the complete legal health record.[facility]
--- OUTSIDE RECORDS SUMMARY | 2025-02-04 11:31 | XMS_ITS | Encounter Summary ---
Author Organization [facility] Address [address] [place] [address] Phone Care Team Providers Care Map Plotter Name Role Phone Carl Kent MD Primary Care Provider Encounter Details Date Type Department Care Team (Late Contact Info) Description 01/24/2022 Procedure Pass [facility] Admitting Dept Virtual Department [address] [place] [address] Social History Tobacco Use Types Packs/Day Years Used Date Smoking Tobacco: Former Cigarettes Q uit: 05/12/1991 Smokeless Tobacco: Former Alcohol Use Standard Drinks/Week Comments Yes 2 (1 standard drink = 0.6 oz pur e alcohol) Sex and Gender Information Value Date Recorded Sex Assigned at Male 02/26/2018 2:57 PM EDT Legal Sex Male 4:16 PM EST Gender Identity Male 02/26/2018 2:57 PM EDT Sexual Orientation Straight 02/26/2018 2: 57 PM EDT 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 Not on file Not on file documented as of this encounter Plan of Treatment Upcoming Encounters Date Type Department Care Team (Late st Contact Info) Description 06/10/2025 11:00 AM EST Office Visit [facility] [address] [place] [phone] Unknown, Unknown, Lorin Lal, PIECE WORKER [address] [place] [address] documented as of this encounter Visit Diagnoses Not on filedocumented in this encounter Care Teams Map Plotter Relationship Specialty Start Date End Date Carl Kent MD [email or web address] PCP - General Family Medicine 05/31/[address], [address] [place] [address] Nephrology 06/06/16 documented as of this encounter Additional Source Comments The information contained in this document represents components of the legal health record. It is not the complete legal health record.[facility]
--- OUTSIDE RECORDS SUMMARY | 2025-02-04 11:31 | XMS_ITS | Encounter Summary ---
Author Organization [facility] Address [address] [place] [address] Phone Care Team Providers Care College Or University Faculty Member Name Role Phone Carl Kent MD Primary Care Provider [phone]- [phone] Reason for Referral * MRI/CAT Scan - Closed Specialty Diagnoses / Procedures Referred By Contac t Referred To Contact Radiology Diagnoses Dilation of biliary tract IPMN (intraductal papillary mucinous neoplasm) Procedures MRI Cholangiopancreatography (MRCP) CHG MRI, ABDOMEN, COMBO CHG MRI, ABDOMEN (MRI) CHG MRI, ABDOMEN W/CONTRAST Fei Walls MD Phone: tel: fax: [email or web address] Referral ID Status Reason Start Date Expiration Date Visits Re quested Visits Authorized [id number] Closed 10/16/2022 12/14/2022 1 1 Encounter Details Date Type Department Care Team (Latest Contact Info) Description 10/16/2022 Transcribe Orders Virtual Department [address] [place] [address] Fei Walls MD [address] [place] [phone] [email or web address] Dilation of biliary tract (Primary Dx); IPMN (intraductal papillary mucinous neoplasm) Social History Tobacco Use Types Packs/Day Years [...] 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 Not on file Not on file documented as of this encounter Plan of Treatment Upcoming Encounters Date Type Department Care Team (Late st Contact Info) Description 06/10/2025 11:00 AM EST Office Visit [facility] [address] [place] [address] Unknown, Unknown, MD Jimenez, Lorin Orosco, FINGERPRINT EXPERT [address] [place] [address] [email or web address] documented as of this encounter Results * MRI CHOLANGIOPANCREATOGRAPHY (MRCP) WITH AND WITHOUT CONTRAST (11/22/2022 8:22 AM EDT) Anatomical Region Laterality Modality Pancreas, Biliary Magnetic Reson ance 11/24/2022 6:54 PM EDT Impressions 11/25/2022 6:52 AM EDT Slightly increased central intrahepatic and extrahepatic bile duct dilation upstream from choledocholithiasis. Extrahepatic bile duct stone burden is increased since 08/09/2021. Similar mild diffuse main pancreatic duct dilation and branch duct prominence/irregularity in the upstream tail. No obstructing pancreatic mass identified. Findings may be secondary to external mass effect from a large periampullary duodenal diverticulum and/or main duct IPMN. This report has been forwarded to an automated communication system which will electronically notify appropriate providers of potentially important findings. Narrative 11/25/2022 6:52 AM EDT MRI CHOLANGIOPANCREATOGRAPHY (MRCP) WITH AND WITHOUT CONTRAST TECHNIQUE: Multiplanar MR imaging of the abdomen was performed using T1, T2, fat saturated, and diffusion weighted techniques. 2D and 3D MRCP sequences were performed. Dynamic multiphase imaging was also performed after administration of an intravenous gadolinium contrast agent. COMPARISON: MRI ABDOMEN OUTSIDE (NO INTERPRETATION) ; CT ABDOMEN/PELVIS OUTSIDE (NO INTERPRETATION) FINDINGS: Lower Chest: Within normal limits. Liver: No global signal abnormality or suspicious focal lesion. Biliary: Mild intrahepatic and extrahepatic bile duct dilation with multiple subcentimeter filling defects in the dependent portions of the extrahepatic bile duct, largest measuring 6 mm in the common hepatic duct (3:25). Mild mass effect on the distal bile duct secondary to a periampullary duodenal diverticulum containing susceptibility artifact related to nondependent air. Extrahepatic bile duct measures up to 12 mm diameter at the common hepatic duct. Noninflamed gallbladder. Spleen: No splenomegaly or suspicious focal lesion. Pancreas: Mild dilation of the main pancreatic duct measuring up to 5 mm diameter, to the level of the ampulla/periampullary region where there is mild mass-effect due to a periampullary duodenal diverticulum. No obstructing mass identified. There is also duct irregularity and ectatic branch ducts in the tail (3:20). Adrenal Glands: No nodule. Kidneys/Ureters: No solid renal mass or hydronephrosis. Numerous simple appearing and hemorrhagic/pronation is bilateral renal cortical cysts. Peritoneum/Retroperitoneum: No abdominal free fluid or mass. Lymph Nodes: No lymphadenopathy. Vessels: No abdominal aortic aneurysm. Bones/Soft Tissues: No suspicious osseous lesion. Degenerative changes. Mild levoconvex lumbar curvature. Procedure Note Efrain Shetty MD - 11/25/2022 MRI CHOLANGIOPANCREATOGRAPHY (MRCP) WITH AND WITHOUT CONTRAST TECHNIQUE: Multiplanar MR imaging of the abdomen was performed using T1,T2, fat saturated, and diffusion weighted techniques. 2D and 3D MRCPsequences were performed. Dynamic multiphase imaging was also performedafter administration of an intravenous gadolinium contrast agent. COMPARISON: MRI ABDOMEN OUTSIDE (NO INTERPRETATION) ; CTABDOMEN/PELVIS OUTSIDE (NO INTERPRETATION) FINDINGS: Lower Chest: Within normal limits. Liver: No global signal abnormality or suspicious focal lesion. Biliary: Mild intrahepatic and extrahepatic bile duct dilation withmultiple subcentimeter filling defects in the dependent portions of theextrahepatic bile duct, largest measuring 6 mm in the common hepatic duct(3:25). Mild mass effect on the distal bile duct secondary to aperiampullary duodenal diverticulum containing susceptibility artifactrelated to nondependent air. Extrahepatic bile duct measures up to 12 mmdiameter at the common hepatic duct. Noninflamed gallbladder. Spleen: No splenomegaly or suspicious focal lesion. Pancreas: Mild dilation of the main pancreatic duct measuring up to 5 mmdiameter, to the level of the ampulla/periampullary region where there ismild mass-effect due to a periampullary duodenal diverticulum. Noobstructing mass identified. There is also duct irregularity and ectaticbranch ducts in the tail (3:20). Adrenal Glands: No nodule. Kidneys/Ureters: No solid renal mass or hydronephrosis. Numerous simpleappearing and hemorrhagic/pronation is bilateral renal cortical cysts. Peritoneum/Retroperitoneum: No abdominal free fluid or mass. Lymph Nodes: No lymphadenopathy. Vessels: No abdominal aortic aneurysm. Bones/Soft Tissues: No suspicious osseous lesion. Degenerative changes.Mild levoconvex lumbar curvature. IMPRESSION: Slightly increased central intrahepatic and extrahepatic bile ductdilation upstream from choledocholithiasis. Extrahepatic bile duct stoneburden is increased since 08/09/2021. Similar mild diffuse main pancreatic duct dilation and branch ductprominence/irregularity in the upstream tail. No obstructing pancreaticmass identified. Findings may be secondary to external mass effect from alarge periampullary duodenal diverticulum and/or main duct IPMN. This report has been forwarded to an automated communication system whichwill electronically notify appropriate providers of potentially importantfindings. Fei Walls MD IMG MR ABDOMEN Final Resu lt documented in this encounter Visit Diagnoses Diagnosis Dilation of biliary tract- Primary IPMN (intraductal papillary mucinous neoplasm) Neoplasm of unspecified nature of digestive system Dilation of biliary tract IPMN (intraductal papillary mucinous neoplasm) Neoplasm of unspecified nature of digestive system documented in this encounter Care Teams College Or University Faculty Member Relationship Specialty Start Date End Date Carl Kent MD PCP - General Family Medicine 05/31/[address], [address] [place] [address] Nephrology 06/06/16 documented as of this encounter Additional Source Comments The information contained in this document represents components of the legal health record. It is not the complete legal health record.[facility]
--- OUTSIDE RECORDS SUMMARY | 2025-02-04 11:31 | XMS_ITS | Encounter Summary ---
Author Organization [facility] Address [address] [place] [address] Phone Care Team Providers Care Adult Neurologist Name Role Phone Carl Kent MD Primary Care Provider [phone] Encounter Details Date Type Department Care Team (Late st Contact Info) Description 08/28/2021 Documentation Only [facility] [address] [place] [address] Benson Ng MD Social History [...] on filedocumented in this encounter Care Teams Adult Neurologist Relationship Specialty Start Date End Date Carl Kent MD [address] [place] [phone] PCP - General 05/22/20 documented as of this encounter
--- OUTSIDE RECORDS SUMMARY | 2025-02-04 11:31 | XMS_ITS | Encounter Summary ---
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 Not on file Not on file documented as of this encounter Plan of Treatment Upcoming Encounters Date Type Department Care Team (Late st Contact Info) Description 06/10/2025 11:00 AM EST Office Visit [facility] [address] [place] [address] Unknown, Unknown, Lorin Lal, HAND PICKER [address] [place] [address] documented as of this encounter Visit Diagnoses Not on filedocumented in this encounter Care Teams Typist Relationship Specialty Start Date End Date Carl Kent MD PCP - General Family Medicine 05/31/[address], [address] [place] [address] Nephrology 06/06/16 documented as of this encounter Additional Source Comments The information contained in this document represents components of the legal health record. It is not the complete legal health record.[facility]
--- OUTSIDE RECORDS SUMMARY | 2025-02-04 11:31 | XMS_ITS | Encounter Summary ---
Author Organization [facility] Address [address] [place] [address] Phone Care Team Providers Care Assembling Fabricator Name Role Phone Carl Kent MD Primary Care Provider [phone] Encounter Details Date Type Department Care Team (Latest Contact Info) Description 10/08/[address] 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 on file Not on file documented as of this encounter Plan of Treatment Upcoming Encounters Date Type Department Care Team (Late st Contact Info) Description 06/10/2025 11:00 AM EST Office Visit [facility] [address] [place] [address] Unknown, Unknown, Lorin Lal, PARTS SALESMAN [address] [place] [address] [email or web address] documented as of this encounter Results * Phosphorus (10/08/2017 11:15 AM EDT) PHOSPHORUS 3.6 2.7 - 4.5 mg/dL [facility] Blood 10/08/2017 11:1 5 AM EDT 10/08/2017 11:18 AM EDT us Carlos Lorenzo MD LAB BLOOD ORDERABLES F inal Result [facility] [address] [place] [address] * (ABNORMAL) Comprehensive metabolic panel (10/08/2017 11:15 AM EDT) SODIUM 140 133 - 146 mmol/L [facility] POTASSIUM 4.7 3.3 - 5.1 mmol/L [facility] CHLORIDE 101 96 - 108 mmol/L [facility] CO2 27 21 - 35 mmol/L [facility] BUN 40(H) 6 - 19 mg/dL [facility] CREATININE 2.00(H) 0.5 - 1.5 mg/dL [facility] GLUCOSE 90 70 - 99 mg/dL [facility] ALBUMIN 4.1 3.9 - 4.8 g/dL [facility] TOTAL PROTEIN 6.8 6.5 - 8.0 g/dL [facility] CALCIUM 9.8 8.4 - 10.3 mg/dL [facility] ALKALINE PHOSPHATASE 54 39 - 117 U/L [facility] TOTAL BILIRUBIN 0.7 0.0 - 1.2 mg/dL [facility] AST 22 0 - 37 U/L [facility] ALT 14 0 - 40 U/L [facility] GLOBULIN 2.7 1 - 4.8 g/dL [facility] EGFR 37(L) >59 mL/min/1.7 3m2 [facility] Comment:If patient is black, multiply result by 1.159. The eGFR calculation has changed from the MDRD equation to the CKD-EPI equation as of July 15, 2017. ANION GAP 17 10 - 20 mmol/L [facility] Blood 10/08/2017 11:1 5 AM EDT 10/08/2017 11:18 AM EDT us Carlos Lorenzo MD LAB BLOOD ORDERABLES F inal Result [facility] [address] [place] [address] documented in this encounter Visit Diagnoses Diagnosis Status post parathyroidectomy- Primary Other postprocedural status Hypercalcemia documented in this encounter Care Teams Assembling Fabricator Relationship Specialty Start Date End Date Carl Kent MD PCP - General Family Medicine 05/31/[address], [address] [place] [address] Nephrology 06/06/16 documented as of this encounter Additional Source Comments The information contained in this document represents components of the legal health record. It is not the complete legal health record.[facility]
--- OUTSIDE RECORDS SUMMARY | 2025-02-04 11:31 | XMS_ITS | Encounter Summary ---
Author Organization 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 [address] [place] [address] Unknown, Unknown, Lorin Lal, FIBER LOCKING SUPERVISOR [address] [place] [address] (work) [email or web address] documented as of this encounter Results * (ABNORMAL) Phosphorus (10/02/2017 11:36 AM EDT) PHOSPHORUS 2.6(L) 2.7 - 4.5 mg/dL [facility] Blood 10/02/2017 11:3 6 AM EDT 10/02/2017 11:41 AM EDT us Carlos Lorenzo MD LAB BLOOD ORDERABLES F inal Result [facility] [address] [place] [address] * (ABNORMAL) Comprehensive metabolic panel (10/02/2017 11:36 AM EDT) SODIUM 140 133 - 146 mmol/L [facility] POTASSIUM 4.4 3.3 - 5.1 mmol/L [facility] CHLORIDE 98 96 - 108 mmol/L [facility] CO2 23 21 - 35 mmol/L [facility] BUN 42(H) 6 - 19 mg/dL [facility] CREATININE 2.10(H) 0.5 - 1.5 mg/dL [facility] GLUCOSE 74 70 - 99 mg/dL [facility] ALBUMIN 4.1 3.9 - 4.8 g/dL [facility] TOTAL PROTEIN 6.8 6.5 - 8.0 g/dL [facility] CALCIUM 10.3 8.4 - 10.3 mg/dL [facility] ALKALINE PHOSPHATASE 54 39 - 117 U/L [facility] TOTAL BILIRUBIN 0.8 0.0 - 1.2 mg/dL [facility] AST 19 0 - 37 U/L [facility] ALT 18 0 - 40 U/L [facility] GLOBULIN 2.7 1 - 4.8 g/dL [facility] EGFR 35(L) >59 mL/min/1.7 3m2 [facility] Comment:If patient is black, multiply result by 1.159. The eGFR calculation has changed from the MDRD equation to the CKD-EPI equation as of July 15, 2017. ANION GAP 23(H) 10 - 20 mmol/L [facility] Blood 10/02/2017 11:3 6 AM EDT 10/02/2017 11:41 AM EDT us Carlos Lorenzo MD LAB BLOOD ORDERABLES F inal Result [facility] [address] [place] [address] documented in this encounter Visit Diagnoses Diagnosis Status post parathyroidectomy- Primary Other postprocedural status Hypercalcemia documented in this encounter Care Teams Checkroom Attendant Relationship Specialty Start Date End Date Carl Kent MD PCP - General Family Medicine [facility] [address], [address] [place] [address] Nephrology 06/06/16 documented as of this encounter Additional Source Comments The information contained in this document represents components of the legal health record. It is not the complete legal health record.[facility]
--- OUTSIDE RECORDS SUMMARY | 2025-02-04 11:31 | XMS_ITS | Encounter Summary ---
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 Not on file Not on file documented as of this encounter Plan of Treatment Upcoming Encounters Date Type Department Care Team (Late st Contact Info) Description 06/10/2025 11:00 AM EST Office Visit [facility] [address] [place] [address] Unknown, Unknown, MD Jimenez, Lorin Orosco, ELECTRIC TRIPPER MACHINE OPERATOR [address] [place] [address] documented as of this encounter Visit Diagnoses Not on filedocumented in this encounter Care Teams Snowboarder Relationship Specialty Start Date End Date Carl Kent MD PCP - General Family Medicine 05/31/[address] [place] [address], [address] [place] [address] Nephrology 06/06/16 documented as of this encounter Additional Source Comments The information contained in this document represents components of the legal health record. It is not the complete legal health record.[facility]
--- OUTSIDE RECORDS SUMMARY | 2025-02-04 11:31 | XMS_ITS | Encounter Summary ---
Author Organization [facility] Address [address] [place] [address] Phone Care Team Providers Care Commuter Pilot Name Role Phone Carl Kent MD Primary Care Provider [phone] Encounter Details Date Type Department Care Team (Late Contact Info) Description 03/29/2019 Transcribe Orders [facility] [address] [place] [address] Carl Kent MD [address] [place] [address] [email or web address] Mixed hyperlipidemia (Primary Dx); 3-oxo-5 alpha-steroid delta 4-dehydrogenase deficiency Social History Tobacco Use Types Packs/Day Years [...] 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 Not on file Not on file documented as of this encounter Plan of Treatment Upcoming Encounters Date Type Department Care Team (Late st Contact Info) Description 06/10/2025 11:00 AM EST Office Visit [facility] [address] [address] Unknown, Unknown, MD Jimenez, Lorin Orosco, GEOSPATIAL APPLICATIONS DEVELOPER [address] [place] [address] [email or web address] documented as of this encounter Results * (ABNORMAL) Testosterone, total and free (03/29/2019 7:34 AM EST) FREE TESTOSTERONE 3.97(L) 4.06 - 15.6 ng/dL [facility] Comment: (NOTE) ADDITIONAL INFORMATION Testing performed by [facility]. This test was developed and its performance characteristics determined by [facility] in a manner consistent with CLIA requirements. This test has not been cleared or approved by the U.S. Food and Drug Administration. TESTOSTERONE, TOTAL 147(L) 240 - 950 ng/dL [facility] Comment: (NOTE) ADDITIONAL INFORMATION Testing performed by Liquid Chromatography-Tandem Mass Spectrometry (LC-MS/MS). This test was developed and its performance characteristics determined by [facility] in a manner consistent with CLIA requirements. This test has not been cleared or approved by the U.S. Food and Drug Administration. Blood 03/29/2019 7:34 AM EST 03/29/2019 7:58 AM EST us Carl Kent MD LAB BLOOD ORDERABLES Final Result [facility] [address] [place] [address] * (ABNORMAL) Lipid panel (03/29/2019 7:34 AM EST) HDL 39 mg/dL [facility] Comment: Interpretation <40 mg/dL: Low HDL cholesterol (major risk factor for CHD) Greater than or equal to 60 mg/dL: High HDL cholesterol ( negative risk factor for CHD) HDL - cholesterol is affected by a number of factors, e.g. smoking, excerise, hormones, sex and age. CHOLESTEROL 214 0 - 240 mg/dL [facility] TRIGLYCERIDES 246(H) 30 - 160 mg/dL [facility] LDL 126 50 - 129 mg/dL [facility] Comment: LDL levels in terms of risk for coronary heart disease: <100 mg/dL: Optimal 100-129 mg/dL: Near or above optimal 130-159 mg/dL: Borderline high 160-189 mg/dL: High >190 mg/dL: Very High CARDIAC RISK RATIO 5.5(H) 3.4 - 5.0 C [facility] Blood 03/29/2019 7:34 AM EST 03/29/2019 7:58 AM EST Carl Kent MD LAB BLOOD ORDERABLES Final Result Performing Organization Address City/State/[facility] Co de Phone Number [address] [address] documented in this encounter Visit Diagnoses Diagnosis Mixed hyperlipidemia- Primary 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 It is not the complete legal health record.[facility]
--- OUTSIDE RECORDS SUMMARY | 2025-02-04 11:31 | XMS_ITS | Encounter Summary ---
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 Not on file Not on file documented as of this encounter Plan of Treatment Upcoming Encounters Date Type Department Care Team (Late st Contact Info) Description 06/10/2025 11:00 AM EST Office Visit [facility] [address] [place] [address] [phone] Unknown, Unknown, MD Jimenez, Lorin Orosco, RAILROAD MECHANIC [address] [place], [place] [phone] documented as of this encounter Visit Diagnoses Not on filedocumented in this encounter Care Teams Formula Bottler Relationship Specialty Start Date End Date Carl Kent MD [email or web address] PCP - General Family Medicine 05/31/16 [facility] [address], [address] [place] [address] Nephrology 06/06/16 documented as of this encounter Additional Source Comments The information contained in this document represents components of the legal health record. It is not the complete legal health record.[facility]
--- OUTSIDE RECORDS SUMMARY | 2025-02-04 11:31 | XMS_ITS | Encounter Summary ---
Author Organization [facility] Address [address] [place] [address] Phone Care Team Providers Care Yarn Hauler Name Role Phone Carl Kent MD Primary Care Provider [phone]- [phone] Encounter Details Date Type Department Care Team ([facility] Contact Info) Description 09/05/2017 Ancillary Orders Virtual Department [address] [place] [address] Carl Kent MD [address] [place] [address] [email or web address] Lumbar radiculopathy Social History Tobacco Use Types Packs/Day Years [...] 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 Not on file Not on file documented as of this encounter Plan of Treatment Upcoming Encounters Date Type Department Care Team (Late Contact Info) Description 06/10/2025 11:00 AM EST Office Visit [facility] [address] [place] [address] Unknown, Unknown, Lorin Lal, TREE EXPERT [address] [place] [address] [email or web address] documented as of this encounter Visit Diagnoses Diagnosis Lumbar radiculopathy Thoracic or lumbosacral neuritis or radiculitis, unspecified documented in this encounter Care Teams Yarn Hauler Relationship Specialty Start Date End Date Carl Kent MD [email or web address] PCP - General Family Medicine 05/31/[address], [address] [place] [address] Nephrology 06/06/16 documented as of this encounter Additional Source Comments The information contained in this document represents components of the legal health record. It is not the complete legal health record.[facility]
--- OUTSIDE RECORDS SUMMARY | 2025-02-04 11:31 | XMS_ITS | Encounter Summary ---
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 file Not on file documented as of this encounter Plan of Treatment Upcoming Encounters Date Type Department Care Team (Late st Contact Info) Description 06/10/2025 11:00 AM EST Office Visit [facility] [address] [place] [address] Unknown, Unknown, Lorin Lal MANAGER RELATIONSHIP 10 [place] [address] documented as of this encounter Visit Diagnoses Not on filedocumented in this encounter Care Teams Medicaid Specialist Relationship Specialty Start Date End Date Carl Kent MD PCP - General Family Medicine 05/31/[address], [address] [place] [address] Nephrology 06/06/16 documented as of this encounter Additional Source Comments The information contained in this document represents components of the legal health record. It is not the complete legal health record.[facility]
--- OUTSIDE RECORDS SUMMARY | 2025-02-04 11:31 | XMS_ITS | Encounter Summary ---
Author Organization [facility] Address [address] [place] [address] Phone Care Team Providers Care Town Justice Name Role Phone Carl Kent MD Primary Care Provider [phone]- [phone] Encounter Details Date Type Department Care Team (Late st Contact Info) Description 06/04/2019 Transcribe Orders [facility] [address] [place] [address] Carl Kent MD [address] [place] [address] [email or web address] Impotence of organic origin (Primary Dx) Social History Tobacco Use Types [...] 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 on file Not on file documented as of this encounter Plan of Treatment Upcoming Encounters Date Type Department Care Team (Late st Contact Info) Description 06/10/2025 11:00 AM EST Office Visit [facility] 10 [place] [address] Unknown, Unknown, Lorin Lal, TOOLING SUPERVISOR 10 [place] [address] [email or web address] documented as of this encounter Results * Testosterone, total (06/04/2019 11:17 AM EST) TESTOSTERONE 827 249 - 836 ng/dL [facility] Blood 06/04/2019 11:1 7 AM EST 06/04/2019 12:23 PM EST us Carl Kent MD LAB BLOOD ORDERABLES Final Result [facility] [address] [place] [address] documented in this encounter Visit Diagnoses Diagnosis Impotence of organic origin- Primary documented in this encounter Care Teams Town Justice Relationship Specialty Start Date End Date Carl Kent MD [email or web address] PCP - General Family Medicine 05/31/16 [address] [place] [address], [address] [place] [address] Nephrology 06/06/16 documented as of this encounter Additional Source Comments The information contained in this document represents components of the legal health record. It is not the complete legal health record.[facility]
--- OUTSIDE RECORDS SUMMARY | 2025-02-04 11:31 | XMS_ITS | Encounter Summary ---
Author Organization [facility] Address [address] [place] [address] Phone Care Team Providers Care Risk Investigator Name Role Phone Carl Kent MD Primary Care Provider [phone]- [phone] Encounter Details Date Type Department Care Team (Late Contact Info) Description 02/22/2020 Telephone [facility] Pain Management [address] [facility] [address] [place] [address] [email or web address] Social History Tobacco Use Types Packs/Day Years [...] 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 file Not on file documented as of this encounter Plan of Treatment Upcoming Encounters Date Type Department Care Team (Late Contact Info) Description 06/10/2025 11:00 AM EST Office Visit [facility] [address] [place] [address] Unknown, Unknown, Lorin Lal, FORMULA MIXER 10 [place] [address] jose documented as of this encounter Visit Diagnoses Not on filedocumented in this encounter Care Teams Risk Investigator Relationship Specialty Start Date End Date Carl Kent MD [email or web address] PCP - General Family Medicine [facility]31[facility], [address] [place] [address] Nephrology 06/06/16 documented as of this encounter Additional Source Comments The information contained in this document represents components of the legal health record. It is not the complete legal health record.[facility]
--- OUTSIDE RECORDS SUMMARY | 2025-02-04 11:31 | XMS_ITS | Encounter Summary ---
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 Not on file Not on file documented as of this encounter Plan of Treatment Upcoming Encounters Date Type Department Care Team (Late st Contact Info) Description 06/10/2025 11:00 AM EST Office Visit [facility] [address] [place] [address] Unknown, Unknown, Lorin Lal, COLOR WEIGHER 10 [place], [place] [phone] documented as of this encounter Results * Phosphorus (10/04/2017 8:48 AM EDT) PHOSPHORUS 3.6 2.7 - 4.5 mg/dL [facility] Blood 10/04/2017 8:48 AM EDT 10/04/2017 8:52 AM EDT us Carlos Lorenzo MD LAB BLOOD ORDERABLES F inal Result [facility] [address] [place] [address] * (ABNORMAL) Comprehensive metabolic panel (10/04/2017 8:48 AM EDT) SODIUM 140 133 - 146 mmol/L [facility] POTASSIUM 4.3 3.3 - 5.1 mmol/L [facility] CHLORIDE 100 96 - 108 mmol/L [facility] CO2 26 21 - 35 mmol/L [facility] BUN 38(H) 6 - 19 mg/dL [facility] CREATININE 2.00(H) 0.5 - 1.5 mg/dL [facility] GLUCOSE 123(H) 70 - 99 mg/dL [facility] ALBUMIN 3.9 3.9 - 4.8 g/dL [facility] TOTAL PROTEIN 6.6 6.5 - 8.0 g/dL [facility] CALCIUM 10.3 8.4 - 10.3 mg/dL [facility] ALKALINE PHOSPHATASE 62 39 - 117 U/L [facility] TOTAL BILIRUBIN 0.6 0.0 - 1.2 mg/dL [facility] AST 19 0 - 37 U/L [facility] ALT 18 0 - 40 U/L [facility] GLOBULIN 2.7 1 - 4.8 g/dL [facility] EGFR 37(L) >59 mL/min/1.7 3m2 [facility] Comment:If patient is black, multiply result by 1.159. The eGFR calculation has changed from the MDRD equation to the CKD-EPI equation as of July 15, 2017. ANION GAP 18 10 - 20 mmol/L [facility] Blood 10/04/2017 8:48 AM EDT 10/04/2017 8:52 AM EDT us Carlos Lorenzo MD LAB BLOOD ORDERABLES F inal Result [facility] [address] [place] [address] documented in this encounter Visit Diagnoses Diagnosis Status post parathyroidectomy- Primary Other postprocedural status Hypercalcemia documented in this encounter Care Teams Agribusiness Internship Relationship Specialty Start Date End Date Carl Kent MD PCP - General Family Medicine 05/31/16 [facility] [address] [place] [address], [address] [place] [address] Nephrology 06/06/16 documented as of this encounter Additional Source Comments The information contained in this document represents components of the legal health record. It is not the complete legal health record.[facility]
--- OUTSIDE RECORDS SUMMARY | 2025-02-04 11:31 | XMS_ITS | Encounter Summary ---
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 Not on file Not on file documented as of this encounter Plan of Treatment Upcoming Encounters Date Type Department Care Team (Late st Contact Info) Description 06/10/2025 11:00 AM EST Office Visit [facility] [address] [place] [address] [phone] Unknown, Unknown, Lorin Lal, ER MEDICAL TECHNICIAN [address] [place] [address] documented as of this encounter Results * Phosphorus (12/17/2017 11:38 AM EDT) PHOSPHORUS 3.9 2.7 - 4.5 mg/dL [facility] Blood 12/17/2017 11:3 8 AM EDT 12/17/2017 11:52 AM EDT us Carlos Lorenzo MD LAB BLOOD ORDERABLES F inal Result [facility] [address] [place] [address] * (ABNORMAL) Comprehensive metabolic panel (12/17/2017 11:38 AM EDT) SODIUM 139 133 - 146 mmol/L [facility] POTASSIUM 4.0 3.3 - 5.1 mmol/L [facility] CHLORIDE 99 96 - 108 mmol/L [facility] CO2 24 21 - 35 mmol/L [facility] BUN 26(H) 6 - 19 mg/dL [facility] CREATININE 1.60(H) 0.5 - 1.5 mg/dL [facility] GLUCOSE 98 70 - 99 mg/dL [facility] ALBUMIN 4.0 3.9 - 4.8 g/dL [facility] TOTAL PROTEIN 6.9 6.5 - 8.0 g/dL [facility] CALCIUM 10.8(H) 8.4 - 10.3 mg/dL [facility] ALKALINE PHOSPHATASE 54 39 - 117 U/L [facility] TOTAL BILIRUBIN 0.7 0.0 - 1.2 mg/dL [facility] AST 17 0 - 37 U/L [facility] ALT 26 0 - 40 U/L [facility] GLOBULIN 2.9 1 - 4.8 g/dL [facility] EGFR 48(L) >59 mL/min/1.7 3m2 [facility] Comment:If patient is black, multiply result by 1.159. Estimated glomerular filtration rate calculated using the CKD-EPI equation. ANION GAP 20 10 - 20 mmol/L [facility] Blood 12/17/2017 11:3 8 AM EDT 12/17/2017 11:52 AM EDT us Carlos Lorenzo MD LAB BLOOD ORDERABLES F inal Result [facility] [address] [place] [address] documented in this encounter Visit Diagnoses Diagnosis Status post parathyroidectomy- Primary Other postprocedural status Hypercalcemia documented in this encounter Care Teams Crew Mess Attendant Relationship Specialty Start Date End Date Carl Kent MD PCP - General Family Medicine 05/31/16 FATIM[facility]UN [address]TLEY [address] [place] [address], [address] [place] [address] Nephrology 06/06/16 documented as of this encounter Additional Source Comments The information contained in this document represents components of the legal health record. It is not the complete legal health record.[facility]
--- OUTSIDE RECORDS SUMMARY | 2025-02-04 11:31 | XMS_ITS | Encounter Summary ---
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) Social History Tobacco Use Types [...] 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 Not on file Not on file documented as of this encounter Plan of Treatment Upcoming Encounters Date Type Department Care Team (Late Contact Info) Description 06/10/2025 11:00 AM EST Office Visit [facility] 10 [place] [address] Unknown, Unknown, MD Jimenez, Lorin Ana Luisa, P D DRIVER 10 [place] [address] [email or web address] documented as of this encounter Results * (ABNORMAL) Testosterone, total and free (12/28/2018 10:30 AM EDT) FREE TESTOSTERONE 1.52(L) 4.06 - 15.6 ng/dL [facility] Comment: (NOTE) ADDITIONAL INFORMATION Testing performed by [facility]. This test was developed and its performance characteristics determined by [facility] in a manner consistent with CLIA requirements. This test has not been cleared or approved by the U.S. Food and Drug Administration. TESTOSTERONE, TOTAL 76(L) 240 - 950 ng/dL [facility] Comment: (NOTE) ADDITIONAL INFORMATION Testing performed by Liquid Chromatography-Tandem Mass Spectrometry (LC-MS/MS). This test was developed and its performance characteristics determined by [facility] in a manner consistent with CLIA requirements. This test has not been cleared or approved by the U.S. Food and Drug Administration. Blood 12/28/2018 10:3 0 AM EDT 12/28/2018 10:34 AM EDT Carl Kent MD LAB BLOOD ORDERABLES Final Result [facility] [address] [place] [address] documented in this encounter Visit Diagnoses Diagnosis 3-oxo-5 alpha-steroid delta 4-dehydrogenase deficiency- Primary Adrenogenital disorders documented in this encounter Care Teams Silver Miner Blasting Relationship Specialty Start Date End Date Carl Kent MD [email or web address] PCP - General Family Medicine 05/31/16 [address] [address]LEY [address] [place] [address], [address] [place] [address] Nephrology 06/06/16 documented as of this encounter Additional Source Comments The information contained in this document represents components of the legal health record. It is not the complete legal health record.[facility]
--- OUTSIDE RECORDS SUMMARY | 2025-02-04 11:31 | XMS_ITS | Encounter Summary ---
Author Organization [facility] Address [address] [place] [address] Phone Care Team Providers Care Station Baggage Agent Name Role Phone Carl Kent MD Primary Care Provider Encounter Details Date Type Department Care Team (Latest Contact Info) Description 11/24/2018 Transcribe Orders [facility] [address] [place] [address] [phone] Carlos Lorenzo MD [address] [place] [address] Primary hyperparathyroidism (Primary Dx); Myxedema heart disease; Hypercalcemia Social History Tobacco Use Types Packs/Day [...] 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 Not on file Not on file documented as of this encounter Plan of Treatment Upcoming Encounters Date Type Department Care Team (Late st Contact Info) Description 06/10/2025 11:00 AM EST Office Visit [facility] [address] [place] [address] [phone] Unknown, Unknown, Lorin Lal, LINE PATROLLER 10 [place] [address] [email or web address] Pending Results Name Type Priority Associated Diagnoses Date /Time 1-25-OH vitamin D Lab Routine Primary hyperparathyroidism Myxedema heart disease Hypercalcemia 11/24/2018 11:05 AM EDT documented as of this encounter Results * 25-OH vitamin D (11/24/2018 11:05 AM EDT) 25 [place] VIT D (TOTAL) 37 30 - 60 ng/mL [facility] Blood 11/24/2018 11:0 5 AM EDT 11/24/2018 5:40 PM EDT Carlos Lorenzo MD LAB BLOOD ORDERABLES F inal Result Performing Organization Address [facility]/ZIP Co de Phone Number [address] [address] * TSH (11/24/2018 11:05 AM EDT) TSH 1.97 0.27 - 4.20 uIU/mL [facility] Blood 11/24/2018 11:0 5 AM EDT 11/24/2018 5:40 PM EDT Carlos Lorenzo MD LAB BLOOD ORDERABLES F inal Result Performing Organization Address City/[facility]/ZIP Co de Phone Number [address] [address] * Free T4 (11/24/2018 11:05 AM EDT) FREE T4 1.3 0.9 - 1.7 ng/dL [facility] Blood 11/24/2018 11:0 5 AM EDT 11/24/2018 5:40 PM EDT Carlos Lorenzo MD LAB BLOOD ORDERABLES F inal Result Performing Organization Address [facility]/ZIP Co de Phone Number [address] [address] * T4, total (11/24/2018 11:05 AM EDT) THYROXINE 6.3 4.6 - 12.0 ug/dL [facility] Blood 11/24/2018 11:0 5 AM EDT 11/24/2018 5:40 PM EDT Carlos Lorenzo MD LAB BLOOD ORDERABLES F inal Result [address] [address] * T3, Total (11/24/2018 11:05 AM EDT) TOTAL T3 102 60 - 181 ng/dL [facility] Blood 11/24/2018 11:0 5 AM EDT 11/24/2018 5:40 PM EDT Carlos Lorenzo MD LAB BLOOD ORDERABLES F inal Result [address] [address] * Phosphorus (11/24/2018 11:05 AM EDT) PHOSPHORUS 3.1 2.7 - 4.5 mg/dL [facility] Blood 11/24/2018 11:0 5 AM EDT 11/24/2018 5:40 PM EDT Carlos Lorenzo MD LAB BLOOD ORDERABLES F inal Result [address] [address] * (ABNORMAL) Parathyroid hormone (PTH) (11/24/2018 11:05 AM EDT) PARATHYROID HORMONE 5(L) 15 - 65 pg/mL [facility] Blood 11/24/2018 11:0 5 AM EDT 11/24/2018 5:31 PM EDT Carlos Lorenzo MD LAB BLOOD ORDERABLES F inal Result [address] [address] * (ABNORMAL) Comprehensive metabolic panel (11/24/2018 11:05 AM EDT) SODIUM 139 133 - 146 mmol/L [facility] POTASSIUM 4.3 3.3 - 5.1 mmol/L [facility] CHLORIDE 100 96 - 108 mmol/L [facility] CO2 27 21 - 35 mmol/L [facility] BUN 19 6 - 19 mg/dL [facility] CREATININE 1.60(H) 0.5 - 1.5 mg/dL [facility] GLUCOSE 129(H) 70 - 99 mg/dL [facility] ALBUMIN 4.1 3.9 - 4.8 g/dL [facility] TOTAL PROTEIN 6.4(L) 6.5 - 8.0 g/dL [facility] CALCIUM 10.6(H) 8.4 - 10.3 mg/dL [facility] ALKALINE PHOSPHATASE 67 39 - 117 U/L [facility] TOTAL BILIRUBIN 0.7 0.0 - 1.2 mg/dL [facility] AST 25 0 - 37 U/L [facility] ALT 33 0 - 40 U/L [facility] GLOBULIN 2.3 1 - 4.8 g/dL [facility] EGFR 48(L) >59 mL/min/1.7 3m2 [facility] Comment:If patient is black, multiply result by 1.159. Estimated glomerular filtration rate calculated using the CKD-EPI equation. ANION GAP 16 10 - 20 mmol/L [facility] Blood 11/24/2018 11:0 5 AM EDT 11/24/2018 5:40 PM EDT Carlos Lorenzo MD LAB BLOOD ORDERABLES F inal Result [address] [address] documented in this encounter Visit Diagnoses Diagnosis Primary hyperparathyroidism- Primary Myxedema heart disease Unspecified hypothyroidism Hypercalcemia documented in this encounter Care Teams Station Baggage Agent Relationship Specialty Start Date End Date Carl Kent MD [email or web address] PCP - General Family Medicine 05/31/[address], [address] [place] [address] Nephrology 06/06/16 documented as of this encounter Additional Source Comments The information contained in this document represents components of the legal health record. It is not the complete legal health record.[facility]
--- OUTSIDE RECORDS SUMMARY | 2025-02-04 11:31 | XMS_ITS | Encounter Summary ---
Author Organization 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 [address] [place] [address] Unknown, Unknown, MD Jimenez, Lorin Orosco, SOLDERING MACHINE OPERATOR AUTOMATIC [address] [place] [address] [email or web address] documented as of this encounter Results * Testosterone, bioavailable/total/free (06/01/2018 10:05 AM EST) TESTOSTERONE, TOTAL 441 240 - 950 ng/dL [facility] Comment: (NOTE) ADDITIONAL INFORMATION Testing performed by Liquid Chromatography-Tandem Mass Spectrometry (LC-MS/MS). This test was developed and its performance characteristics determined by [facility] in a manner consistent with CLIA requirements. This test has not been cleared or approved by the U.S. Food and Drug Administration. FREE TESTOSTERONE 11.5 4.06 - 15.6 ng/dL [facility] Comment: (NOTE) ADDITIONAL INFORMATION Testing performed by Equilibrium Dialysis. This test was developed and its performance characteristics determined by [facility] in a manner consistent with CLIA requirements. This test has not been cleared or approved by the U.S. Food and Drug Administration. BIOAVAIL TESTOST 159 50 - 190 ng/dL [facility] Comment: (NOTE) ADDITIONAL INFORMATION Testing performed by Differential Precipitation. This test was developed and its performance characteristics determined by [facility] in a manner consistent with CLIA requirements. This test has not been cleared or approved by the U.S. Food and Drug Administration. Blood 06/01/2018 10:0 5 AM EST 06/01/2018 10:11 AM EST us Carl Kent MD LAB BLOOD ORDERABLES Final Result [facility] [address] [place] [address] * (ABNORMAL) Lipid panel (06/01/2018 10:05 AM EST) HDL 43 mg/dL [facility] Comment: Interpretation <40 mg/dL: Low HDL cholesterol (major risk factor for CHD) Greater than or equal to 60 mg/dL: High HDL cholesterol ( negative risk factor for CHD) HDL - cholesterol is affected by a number of factors, e.g. smoking, excerise, hormones, sex and age. CHOLESTEROL 242(H) 0 - 240 mg/dL [facility] TRIGLYCERIDES 332(H) 30 - 160 mg/dL [facility] LDL 133(H) 50 - 129 mg/dL [facility] Comment: LDL levels in terms of risk for coronary heart disease: <100 mg/dL: Optimal 100-129 mg/dL: Near or above optimal 130-159 mg/dL: Borderline high 160-189 mg/dL: High >190 mg/dL: Very High CARDIAC RISK RATIO 5.6(H) 3.4 - 5.0 C [facility] Blood 06/01/2018 10:0 5 AM EST 06/01/2018 10:11 AM EST Carl Kent MD LAB BLOOD ORDERABLES Final Result Performing Organization Address [facility] Co de Phone Number [facility] [address] [place] [address] documented in this encounter Visit Diagnoses Diagnosis 3-oxo-5 alpha-steroid delta 4-dehydrogenase deficiency- Primary Adrenogenital disorders documented in this encounter Care Teams Trial Consultant Relationship Specialty Start Date End Date Carl Kent MD PCP - General Family Medicine 05/31/16 LUZ HUN[address]LEY [address] [place] [address], [address] [place] [address] Nephrology 06/06/16 documented as of this encounter Additional Source Comments The information contained in this document represents components of the legal health record. It is not the complete legal health record.[facility]
--- OUTSIDE RECORDS SUMMARY | 2025-02-04 11:31 | XMS_ITS | Encounter Summary ---
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 Not on file Not on file documented as of this encounter Plan of Treatment Upcoming Encounters Date Type Department Care Team (Late st Contact Info) Description 06/10/2025 11:00 AM EST Office Visit [facility] 10 [place] [address] Unknown, Unknown, Lorin Lal, POLE CUTTER [address] [place] [address] [email or web address] documented as of this encounter Results * (ABNORMAL) Testosterone, total and free (09/29/2017 11:24 AM EDT) FREE TESTOSTERONE 2.52(L) 4.06 - 15.6 ng/dL [facility] Comment: (NOTE) ADDITIONAL INFORMATION Testing performed by [facility]. This test was developed and its performance characteristics determined by [facility] in a manner consistent with CLIA requirements. This test has not been cleared or approved by the U.S. Food and Drug Administration. TESTOSTERONE, TOTAL 105(L) 240 - 950 ng/dL [facility] Comment: (NOTE) ADDITIONAL INFORMATION Testing performed by Liquid Chromatography-Tandem Mass Spectrometry (LC-MS/MS). This test was developed and its performance characteristics determined by [facility] in a manner consistent with CLIA requirements. This test has not been cleared or approved by the U.S. Food and Drug Administration. Blood 09/29/2017 11:2 4 AM EDT 09/29/2017 11:28 AM EDT Carl Kent MD LAB BLOOD ORDERABLES Final Result [facility] [address] [place] [address] documented in this encounter Visit Diagnoses Diagnosis 3-oxo-5 alpha-steroid delta 4-dehydrogenase deficiency- Primary Adrenogenital disorders documented in this encounter Care Teams Radiosonde Operator Relationship Specialty Start Date End Date Carl Kent MD PCP - General Family Medicine 05/31/16 LUZ HUN[address]LEY [address] [place] [address], [address] [place] [address] Nephrology 06/06/16 documented as of this encounter Additional Source Comments The information contained in this document represents components of the legal health record. It is not the complete legal health record.[facility]
== END 2025-02-04 10:47 | disposition home or self-care (01) ==
LOC: HO.HKA 10:16
PROVIDERS: PCP Family Medicine; Visit Provider Internal Medicine Nephrology
DX: I10 Essential (primary) hypertension (principal); E83.59 Other disorders of calcium metabolism; N18.31 Chronic kidney disease, stage 3a; N28.1 Cyst of kidney, acquired; E83.52 Hypercalcemia
CPT/HCPCS: 99214

== ENCOUNTER 2025-04-20 14:54 | Outpatient (AMB) | payer BC, SELFPAY ==
--- NOTE | 2025-04-20 15:26 | A.OFFVIS_ITS ---
Intake Visit Reasons: 6M PSA/Discuss Testo/UA(Set) Intake Note: Reason for Visit: PSA/Discuss Testo/Elevated PSA/UA Urology Meds: Cabergoline, Testosterone Blood Thinners: None Labs: PSA- 15.40(04/05/2025) Imaging: None Last PVR: None Commuter Train Operator Required: No Allergies fentanyl (FENTANYL) Allergy (Unknown, Verified 04/20/25 15:27) ANGIOEDEMA From INDOCIN Adverse Reaction (Unknown, Uncoded 04/20/25 15:27) HEART PALPITATIONS HPI Comments Details: Rashard is a pleasant male. He is a patient of . 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 - erectile dysfunction Six-month follow-up Lab work shows elevated PSA 15.4 Glucose in urine 3+ Is on Jardiance 10 mg Prostatitis on YURI Medications provided Four week follow-up repeat PSA Follow-up after trial of dopamine agonist for anorgasmia Minimal benefit He will continue to trial Did discuss use of oxytocin Available through compounding pharmacy - $2.50 per tablet Erectile dysfunction Uses - Vardalifil with good success for maintaining erections Low testosterone Has been on replacement for many years Notes different responses to generic versus branded injectables Advice regarding finding different sources particularly through compounding pharmacist Labs 09/02 PSA 2.4 PFSH Medical History CKD (chronic kidney disease) Surgical History History of back surgery Hx of cholecystectomy Hx of total thyroidectomy Family History Father Cancer Social History Alcohol intake: never Patient Tobacco Use Status: Former Tobacco user Results AMB Urinalysis, Automated UA Leukoctes 0 Randy/uL Last Edit by JAMMIE Shea on 04/20/25 15:27 UA Nitrite Negative Last Edit by JAMMIE Shea on 04/20/25 15:27 UA Urobilinogen 0.2 mg/dL Last Edit by JAMMIE Shea on 04/20/25 15:2 7 UA Protein 100 mg/dL Last Edit by Bindu Monae RMA on 04/20/25 15:27 UA pH 6.0 Last Edit by Bindu Monae, RMA on 04/20/25 15:27 UA Blood 0 Israel/uL Last Edit by Bindu Monae, RMA on 04/20/25 15:27 UA Specific [place] 1.010 Last Edit by Bindu Monae, RMA on 04/20/25 15: 27 UA Ketone Negative Last Edit by Bindu Monae, RMA on 04/20/25 15:27 UA Bilirubin 0 mg/dL Last Edit by Bindu Monae, RMA on 04/20/25 15:27 UA Glucose 1000 mg/dL Last Edit by Bindu Monae A on 04/20/25 15:27 Results Reviewed Results Reviewed: Laboratory Last Values Urine pH (Auto) 6.0 04/20/25 15:26 Specific [place] (Auto) 1.010 04/20/25 15:26 Urine Protein (Auto) 100 mg/dL 04/20/25 15:26 Glucose (UA)(Auto) 1000 mg/dL 04/20/25 15:26 Urine Ketones (Auto) Negative 04/20/25 15:26 Urine Blood (Auto) 0 [place]/uL 04/20/25 15:26 Urine Nitrite (Auto) Negative 04/20/25 15:26 Urine Bilirubin (Auto) 0 mg/dL 04/20/25 15:26 Urine Urobilinogen (Auto) 0.2 mg/dL 04/20/25 15:26 Leukocyte Esterase (Auto) 0 Randy/uL 04/20/25 15:26 Assessment & Plan Assessment & Plan (1) Prostatitis: Code(s): N41.9 - Inflammatory disease of prostate, unspecified Category: Medical Orders: Orders AMB Urinalysis Automated Today Z13.9 - Encounter for screening, unspecified Prostate Specific Antigen 4 Weeks N41.9 - Inflammatory disease of prostate, unspecified Medications: New meloxicam 15 mg PO DAILY 30 tabs 0RF 30 days sulfamethoxazole-trimethoprim 800-160 mg (Bactrim DS) 1 tab PO BID 28 tabs 0RF 14 days prednisone 20 mg PO DAILY 5 tabs 0RF 5 days Coding Diagnoses Prostatitis N41.9
--- OUTSIDE RECORDS SUMMARY | 2025-04-20 23:26 | XMS_ITS | Clinical Summary ---
Author Organization [facility] Address [address] [place] [address] Phone Care Team Providers Care Optical Engineer Name Role Phone Eduardo Everett MD Primary Care Provider Allergies Active Allergy Reactions Criticality Noted Date [...] Care Team Description 02/04/2025 11:26 AM EDT - 02/04/2025 11:59 PM EDT Hospital Encounter [facility] [address] [place] [address] Benson Ng MD Discharge Disposition: Home or Self Care 02/04/2025 Transcribe Orders [facility] [address] [place] [address] Benson Ng MD Hypertension, essential (Primary Dx); Stage 3 chronic kidney disease, unspecified whether stage 3a or 3b CKD; Hypercalcemia; Other disorders of calcium metabolism; Cyst of kidney, acquired from Last 3 Months Family History Medical [...] 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 Not on file Not on file [...] Description 06/10/2025 11:00 AM EST Office Visit [facility] [address] [place] [address] Unknown, Unknown, Lorin Lal, GRIP BOSS [address] [place] [address] Health Maintenance Due Date Last Done Comments [...] 06/12, 04/30/2022, Additional history exists CREATININE LEVEL 02/04/2026 02/04/2025, , 05/17/2024, Additional history exists SCREENING FOR DIABETES 02/05/2028 , 04/20/2024, 10/24/2023 Adult Td,Tdap Booster 08/28/2028 08/28/2018, 009 LIPID PANEL 04/20/2029 04/20/2024, 10/10, 09/26/2020, Additional history exists COLONOSCOPY 01/25/2032 01/24/2022 COLORECTAL CANCER SCREENING 01/25/2032 RSV VACCINE (1 - 1-dose 75+ series) 11/19/2039 HEPATITIS C SCREENING Completed 07/22/2021 , 07/22/2021, 07/22/2021, Additional history exists HEPATITIS A VACCINES Aged Out No long [...] Procedure Name Priority Date/Time Associated Diagnosis Comments PSA (SCREENING) Routine 04/05/2025 11:06 AM EST Special screening for malignant neoplasm of prostate CREATININE WITH ESTIMATED GLOMERULAR FILTRATION RATE (EGFR) Routine 02/04/2025 11:45 AM EDT Hypertension, essential Stage 3 chronic kidney disease, unspecified whether stage 3a or 3b CKD Hypercalcemia Other disorders of calcium metabolism Cyst of kidney, acquired BUN Routine 02/04/2025 11:45 AM EDT Hypertension, essential Stage 3 chronic kidney disease, unspecified whether stage 3a or 3b CKD Hypercalcemia Other disorders of calcium metabolism Cyst of kidney, acquired ELECTROLYTES Routine 02/04/2025 11:45 AM EDT Hypertension, essential Stage 3 chronic kidney disease, unspecified whether stage 3a or 3b CKD Hypercalcemia Other disorders of calcium metabolism Cyst of kidney, acquired CALCIUM Routine 02/04/2025 11:45 AM EDT Hypertension, essential Stage 3 chronic kidney disease, unspecified whether stage 3a or 3b CKD Hypercalcemia Other disorders of calcium metabolism Cyst of kidney, acquired HEMOGLOBIN A1C Routine 02/04/2025 11:45 AM EDT Hypertension, essential Stage 3 chronic kidney disease, unspecified whether stage 3a or 3b CKD Hypercalcemia Other disorders of calcium metabolism Cyst of kidney, acquired 25-OH VITAMIN D Routine 02/04/2025 11:45 AM EDT Hypertension, essential Stage 3 chronic kidney disease, unspecified whether stage 3a or 3b CKD Hypercalcemia Other disorders of calcium metabolism Cyst of kidney, acquired LIPID PANEL Routine 04/20/2024 12:44 PM EST Screening for prostate cancer Routine general medical examination at a health care facility Stage 3 chronic kidney disease, unspecified whether stage 3a or 3b CKD Hypothyroidism, unspecified type THYROID STIMULATING HORMONE (TSH) Routine 04/20/2024 12:44 PM EST Screening for prostate cancer Routine general medical examination at a health care facility Stage 3 chronic kidney disease, unspecified whether stage 3a or 3b CKD Hypothyroidism, unspecified type GLUCOSE Routine 10/24/2023 8:15 AM EDT Routine general medical examination at a health care facility ENDOSCOPY, COLON 01/24/2022 12:5 5 PM EDT HEPATITIS B SURFACE ANTIGEN Routine 07/22/2021 5:20 AM EDT from Last 3 Months or Most Recently Relevant to Health Maintenance Results * (ABNORMAL) Prostate Specific Antigen (PSA), Screen (04/05/2025 11:06 AM EST) PSA Screen 15.40(H) <=4.00 ng/mL 04/05/2025 5:10 PM EST [facility] Blood (Blood) Venipuncture / Unknown 04/05/2025 11:06 AM EST 04/05/2025 11:06 AM EST us Eduardo Everett MD LAB BLOOD BKR ORDERABLES Fi nal Result [address] [address] * (ABNORMAL) Creatinine/eGFR (02/04/2025 11:45 AM EDT) CREATININE 2.60(H) 0.5 - 1.5 mg/dL [facility] EGFR 27(L) >59 mL/min/1.7 3m2 [facility] Comment:Estimated glomerular filtration rate calculated using the CKD-EPI refit equation. Blood 02/04/2025 11:4 5 AM EDT 02/04/2025 11:47 AM EDT us Benson Ng MD LAB BLOOD BKR ORD ERABLES Final Result [address] [address] * 25-OH vitamin D (02/04/2025 11:45 AM EDT) 25 OH VIT D (TOTAL) 41 30 - 60 ng/mL [facility] Blood 02/04/2025 11:4 5 AM EDT 02/04/2025 11:47 AM EDT us Benson Ng MD LAB BLOOD BKR ORD ERABLES Final Result Performing Organization Address [facility] Co de Phone Number [address] [address] * (ABNORMAL) BUN (02/04/2025 11:45 AM EDT) BUN 23(H) 6 - 19 mg/dL [facility] Blood 02/04/2025 11:4 5 AM EDT 02/04/2025 11:47 AM EDT us Benson Ng MD LAB BLOOD BKR ORD ERABLES Final Result Performing Organization Address [facility]/ZIP Co de Phone Number [address] [address] * Hemoglobin A1c (02/04/2025 11:45 AM EDT) HEMOGLOBIN A1C 5.2 4.3 - 5.8 % [facility] Blood 02/04/2025 11:4 5 AM EDT 02/04/2025 11:47 AM EDT us Benson Ng MD LAB BLOOD BKR ORD ERABLES Final Result Performing Organization Address [facility]/ZIP Co de Phone Number [address] [address] * (ABNORMAL) Calcium (02/04/2025 11:45 AM EDT) CALCIUM 10.8(H) 8.4 - 10.3 mg/dL [facility] Blood 02/04/2025 11:4 5 AM EDT 02/04/2025 11:47 AM EDT us Benson Ng MD LAB BLOOD BKR ORD ERABLES Final Result Performing Organization Address [facility]/ZIP Co de Phone Number [address] [address] * Electrolytes (02/04/2025 11:45 AM EDT) SODIUM 140 133 - 146 mmol/L [facility] POTASSIUM 4.7 3.3 - 5.1 mmol/L [facility] CHLORIDE 101 96 - 108 mmol/L [facility] CO2 27 21 - 35 mmol/L [facility] ANION GAP 17 10 - 20 mmol/L [facility] Blood 02/04/2025 11:4 5 AM EDT 02/04/2025 11:47 AM EDT us Benson Ng MD LAB BLOOD BKR ORD ERABLES Final Result Performing Organization Address [facility]/ZIP Co de Phone Number [address] [address] * TSH (04/20/2024 12:44 PM EST) TSH 2.86 0.27 - 4.20 uIU/mL [facility] Blood 04/20/2024 12:4 4 PM EST 04/20/2024 12:51 PM EST us Eduardo Everett MD LAB BLOOD BKR ORDERABLES Fi nal Result Performing Organization Address [facility]/ZIP Co de Phone Number [address] [address] * (ABNORMAL) Lipid panel (04/20/2024 12:44 PM EST) HDL 43 mg/dL [facility] Comment: Interpretation <40 mg/dL: Low HDL cholesterol (major risk factor for CHD) Greater than or equal to 60 mg/dL: High HDL cholesterol ( negative risk factor for CHD) HDL - cholesterol is affected by a number of factors, e.g. smoking, excerise, hormones, sex and age. CHOLESTEROL 234 0 - 240 mg/dL [facility] TRIGLYCERIDES 273(H) 30 - 160 mg/dL [facility] LDL 136(H) 50 - 129 mg/dL [facility] Comment: LDL levels in terms of risk for coronary heart disease: <100 mg/dL: Optimal 100-129 mg/dL: Near or above optimal 130-159 mg/dL: Borderline high 160-189 mg/dL: High >190 mg/dL: Very High CARDIAC RISK RATIO 5.4(H) 3.4 - 5.0 C [facility] Blood 04/20/2024 12:4 4 PM EST 04/20/2024 12:52 PM EST Eduardo Everett MD LAB BLOOD BKR ORDERABLES Fi nal Result Performing Organization Address City/[facility] Co de Phone Number [address] [address] * Glucose (10/24/2023 8:15 AM EDT) GLUCOSE 99 70 - 99 mg/dL [facility] Blood 10/24/2023 8:15 AM EDT 10/24/2023 8:16 AM EDT Eduardo Everett MD LAB BLOOD BKR ORDERABLES Fi nal Result Performing Organization Address City/[facility]/ZIP Co de Phone Number [address] [address] * ENDOSCOPY, COLON (01/24/2022 12:55 PM EDT) Narrative Transcriptions Ayana Walls MD - 01/24/2022 12:55 PM EDT Patient Name: Rashard Argueta Attending MD:: AYANA WALLS MD Procedure Date: 01/24/2022 12:55 PM Date of : 1965 Age: 56 Admit Type: Outpatient Gender: Male Room: [place] [address] Referring MD: EDUARDO EVERETT MD Exam Type: [...] 12:55 PM Procedure Code(s): --- Professional --- 86282, Colonoscopy, flexible; diagnostic, including collection of specimen(s) by brushing or washing, when performed (separateprocedure) --- Technical --- 26809, Colonoscopy, flexible; diagnostic, including collection of specimen(s) [...] or abscess without bleeding CPT copyright 2020 [employer]. All rights reserved. The codes documented in this report are preliminary and upon build engineer reviewmay be revised to meet current compliance requirements. Procedure Date: 01/24/2022 12:55:[address] [place] [address] us Eduardo Everett MD GI PROCEDURE ORDERABLES Fin al Result * Hepatitis B surface antigen (07/22/2021 5:20 AM EDT) HBV SURFACE ANTIGEN Negative Negative [facility] Blood 07/22/2021 5:20 AM EDT 07/22/2021 5:47 AM EDT us Rajwinder Villagran Elier GRIP BOSS LAB BLOOD BKR ORDERABLE S Final Result [facility] [address] [place] [address] from Last 3 Months or Most Recently Relevant to Health Maintenance Insurance OUT [facility] [place] [address] [place] [address] PPO BLUE CROSS OUT OF STATE PPO BLUE CROSS OUT OF [facility] [place] [address] [place] [address] CROSS OUT OF [facility] PPO OUT OF [facility] PPO OUT [facility] PPO BLUE [place] OUT OF [facility] PPO OUT [facility] PPO Advance Directives For more information, please contact: [phone] (9AM - 5PM [facility], Friday-Friday) Documents on File Type Date Recorded Patient Integration Director Expl anation Healthcare Proxy 08/01/2021 2:47 PM [...] Name Relationship Healthcare Agent Relationship Communication Wilberto Argueta Spouse .Primary Health Care Agent (Proxy form on file) Care Teams Optical Engineer Relationship Specialty Start Date End Date Eduardo Everett MD PCP - General Family Medicine 05/31/[address], [address] [place] [address] Nephrology 06/06/16 Additional Source Comments The information contained in this document represents components of the legal health record. It is not the complete legal health record.[facility]
--- OUTSIDE RECORDS SUMMARY | 2025-04-20 23:26 | XMS_ITS | Encounter Summary ---
Author Organization [facility] Address [address] [place] [address] Phone Care Team Providers Care Automatic Machine Attendant Name Role Phone Carl Kent MD Primary Care Provider [phone]- [phone] Encounter Details Date Type Department Care Team (Late st Contact Info) Description 08/28/2021 Documentation Only [facility] [address] [place] [phone] Benson Ng MD [address] [place] [phone] Social History Tobacco Use Types Packs/Day Years [...] on filedocumented in this encounter Care Teams Automatic Machine Attendant Relationship Specialty Start Date End Date Carl Kent MD [address] [place] [phone] PCP - General 05/22/20 documented as of this encounter
--- OUTSIDE RECORDS SUMMARY | 2025-04-20 23:26 | XMS_ITS | Encounter Summary ---
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 file Not on file Not on file documented as of this encounter Plan of Treatment Upcoming Encounters Date Type Department Care Team (Late st Contact Info) Description 06/10/2025 11:00 AM EST Office Visit [facility] [address] [place] [address] Unknown, Unknown, Lorin Lal, SHIRA [address] [place] [address] [email or web address] Pending Results Name Type Priority Associated Diagnoses Date /Time 1-25-OH vitamin D Lab Routine Primary hyperparathyroidism Myxedema heart disease Hypercalcemia 11/24/2018 11:05 AM EDT documented as of this encounter Results * 25-OH vitamin D (11/24/2018 11:05 AM EDT) 25 [place] VIT D (TOTAL) 37 30 - 60 ng/mL [facility] Blood 11/24/2018 11:0 5 AM EDT 11/24/2018 5:40 PM EDT Carlos Lorenzo MD LAB BLOOD BKR ORDERABL ES Final Result Performing Organization Address [facility] Co de Phone Number [address] [address] * TSH (11/24/2018 11:05 AM EDT) TSH 1.97 0.27 - 4.20 uIU/mL [facility] Blood 11/24/2018 11:0 5 AM EDT 11/24/2018 5:40 PM EDT Carlos Lorenzo MD LAB BLOOD BKR ORDERABL ES Final Result Performing Organization Address [facility] de Phone Number [address] [address] * Free T4 (11/24/2018 11:05 AM EDT) FREE T4 1.3 0.9 - 1.7 ng/dL [facility] Blood 11/24/2018 11:0 5 AM EDT 11/24/2018 5:40 PM EDT Carlos Lorenzo MD LAB BLOOD BKR ORDERABL ES Final Result Performing Organization Address [facility] Co de Phone Number [address] [place] [address] * T4, total (11/24/2018 11:05 AM EDT) THYROXINE 6.3 4.6 - 12.0 ug/dL [facility] Blood 11/24/2018 11:0 5 AM EDT 11/24/2018 5:40 PM EDT Carlos Lorenzo MD LAB BLOOD ORDERABLES F inal Result [address] [address] * T3, Total (11/24/2018 11:05 AM EDT) TOTAL T3 102 60 - 181 ng/dL [facility] Blood 11/24/2018 11:0 5 AM EDT 11/24/2018 5:40 PM EDT Carlos Lorenzo MD LAB BLOOD BKR ORDERABL ES Final Result [address] [address] * Phosphorus (11/24/2018 11:05 AM EDT) PHOSPHORUS 3.1 2.7 - 4.5 mg/dL [facility] Blood 11/24/2018 11:0 5 AM EDT 11/24/2018 5:40 PM EDT Carlos Lorenzo MD LAB BLOOD BKR ORDERABL ES Final Result [address] [address] * (ABNORMAL) Parathyroid hormone (PTH) (11/24/2018 11:05 AM EDT) PARATHYROID HORMONE 5(L) 15 - 65 pg/mL [facility] Blood 11/24/2018 11:0 5 AM EDT 11/24/2018 5:31 PM EDT Carlos Lorenzo MD LAB BLOOD BKR ORDERABL ES Final Result Performing Organization Address City/[facility]/ZIP Co de Phone Number [address] [address] * (ABNORMAL) Comprehensive metabolic panel (11/24/2018 11:05 AM EDT) SODIUM 139 133 - 146 mmol/L [facility] POTASSIUM 4.3 3.3 - 5.1 mmol/L [facility] CHLORIDE 100 96 - 108 mmol/L [facility] CO2 27 21 - 35 mmol/L [facility] BUN 19 6 - 19 mg/dL [facility] CREATININE 1.60(H) 0.5 - 1.5 mg/dL [facility] GLUCOSE 129(H) 70 - 99 mg/dL [facility] ALBUMIN 4.1 3.9 - 4.8 g/dL [facility] TOTAL PROTEIN 6.4(L) 6.5 - 8.0 g/dL [facility] CALCIUM 10.6(H) 8.4 - 10.3 mg/dL [facility] ALKALINE PHOSPHATASE 67 39 - 117 U/L [facility] TOTAL BILIRUBIN 0.7 0.0 - 1.2 mg/dL [facility] AST 25 0 - 37 U/L [facility] ALT 33 0 - 40 U/L [facility] GLOBULIN 2.3 1 - 4.8 g/dL [facility] EGFR 48(L) >59 mL/min/1.7 3m2 [facility] Comment:If patient is black, multiply result by 1.159. Estimated glomerular filtration rate calculated using the CKD-EPI equation. ANION GAP 16 10 - 20 mmol/L [facility] Blood 11/24/2018 11:0 5 AM EDT 11/24/2018 5:40 PM EDT Carlos Lorenzo MD LAB BLOOD BKR ORDERABL ES Final Result [address] [address] documented in this encounter Visit Diagnoses Diagnosis Primary hyperparathyroidism- Primary Myxedema heart disease Unspecified hypothyroidism Hypercalcemia documented in this encounter Care Teams Centrifugal Separator Relationship Specialty Start Date End Date Carl Kent MD [email or web address] PCP - General Family Medicine 05/31/[address], [address] [place] [address] Nephrology 06/06/16 documented as of this encounter Additional Source Comments The information contained in this document represents components of the legal health record. It is not the complete legal health record.[facility]
--- OUTSIDE RECORDS SUMMARY | 2025-04-20 23:26 | XMS_ITS | Encounter Summary ---
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 Not on file Not on file documented as of this encounter Functional Status * Calculated C-SSRS Risk Score (Lifetime/Recent) Answer Date of Assessment Author No Risk Indicated 07/23/2021 9:38 PM AIDANT Tod Lilly RN * [place] Suicide Severity Rating Scale (Screener/Recent Self-Report) Question [...] Office Visit [facility] [address] [place] [address] Unknown, Unknown, Lorin Lal, UNIT AIDE [address] [place] [address] documented as of this encounter Visit Diagnoses Not on filedocumented in this encounter Care Teams User Support Analyst Relationship Specialty Start Date End Date Carl Kent MD PCP - General Family Medicine 05/31/[address] [place] [address], [address] [place] [address] Nephrology 06/06/16 documented as of this encounter Additional Source Comments The information contained in this document represents components of the legal health record. It is not the complete legal health record.[facility]
--- OUTSIDE RECORDS SUMMARY | 2025-04-20 23:26 | XMS_ITS | Encounter Summary ---
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 Not on file Not on file documented as of this encounter Plan of Treatment Upcoming Encounters Date Type Department Care Team (Late st Contact Info) Description 06/10/2025 11:00 AM EST Office Visit [facility] Gastroenterology Clinic [address] [place] [address] Unknown, UnknownMD Tony Rachel Marie, DRILLING FIELD OPERATOR [address] [place] [address] [email or web address] documented as of this encounter Results * (ABNORMAL) Lipid panel (08/14/2017 7:39 AM EDT) HDL 43 mg/dL [facility] Comment: Interpretation: Risk Level Males Decreased >45 mg/dL Average 40-45 mg/dL Increased <40 mg/dL CHOLESTEROL 262(H) 0 - 240 mg/dL [facility] TRIGLYCERIDES 303(H) 30 - 160 mg/dL [facility] LDL 158(H) 50 - 129 mg/dL [facility] Comment: LDL levels in terms of risk for coronary heart disease: <100 mg/dL: Optimal 100-129 mg/dL: Near or above optimal 130-159 mg/dL: Borderline high 160-189 mg/dL: High >190 mg/dL: Very High CARDIAC RISK RATIO 6.1(H) 3.4 - 5.0 [facility] Blood 08/14/2017 7:39 AM EDT 08/14/2017 9:09 AM EDT Carl Kent MD LAB BLOOD BKR ORDERABLES Fi nal Result [address] [address] documented in this encounter Visit Diagnoses Diagnosis Mixed hyperlipidemia- Primary documented in this encounter Care Teams Behavioral Medical Director Relationship Specialty Start Date End Date Carl Kent MD PCP - General Family Medicine 05/31/16 [address] [place] [address], [address] [place] [address] Nephrology 06/06/16 documented as of this encounter Additional Source Comments The information contained in this document represents components of the legal health record. It is not the complete legal health record.[facility]
--- OUTSIDE RECORDS SUMMARY | 2025-04-20 23:26 | XMS_ITS | Encounter Summary ---
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 Not on file Not on file documented as of this encounter Functional Status * Calculated C-SSRS Risk Score (Lifetime/Recent) Answer Date of Assessment Author No Risk Indicated 07/23/2021 9:38 PM AIDANT Tod Lilly RN * [place] Suicide Severity Rating Scale (Screener/Recent Self-Report) Question [...] Description 06/10/2025 11:00 AM EST Office Visit [facility] Gastroenterology [facility] [address] [place] [address] Unknown, Unknown, Lorin Lal, DRIER TRANSFER CAR OPERATOR [address] [place] [address] documented as of this encounter Visit Diagnoses Not on filedocumented in this encounter Care Teams Pulverizer Feeder Relationship Specialty Start Date End Date Carl Kent MD PCP - General Family Medicine 05/31/[address] [place] [address], [address] [place] [address] Nephrology 06/06/16 documented as of this encounter Additional Source Comments The information contained in this document represents components of the legal health record. It is not the complete legal health record.[facility]
--- OUTSIDE RECORDS SUMMARY | 2025-04-20 23:26 | XMS_ITS | Encounter Summary ---
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 Not on file Not on file documented as of this encounter Plan of Treatment Upcoming Encounters Date Type Department Care Team (Late Contact Info) Description 06/10/2025 11:00 AM EST Office Visit [facility] [address] [place] [address] Unknown, Unknown, Lorin Lal, HYPO DIPPER [address] [place] [address] [email or web address] documented as of this encounter Visit Diagnoses Diagnosis Lumbar radiculopathy Thoracic or lumbosacral neuritis or radiculitis, unspecified documented in this encounter Care Teams Sport Internship Relationship Specialty Start Date End Date Carl Kent MD [email or web address] PCP - General Family Medicine 05/31/[address], [address] [place] [address] Nephrology 06/06/16 documented as of this encounter Additional Source Comments The information contained in this document represents components of the legal health record. It is not the complete legal health record.[facility]
--- OUTSIDE RECORDS SUMMARY | 2025-04-20 23:26 | XMS_ITS | Encounter Summary ---
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 Not on file Not on file documented as of this encounter Plan of Treatment Upcoming Encounters Date Type Department Care Team (Late st Contact Info) Description 06/10/2025 11:00 AM EST Office Visit [facility] [address] [place] [address] Unknown, Unknown, Lorin Lal, C[facility] DEAN [address] [place] [address] [email or web address] documented as of this encounter Results * Uric acid (05/25/2018 9:50 AM EST) URIC ACID 5.3 2.4 - 7.0 mg/dL [facility] Blood 05/25/2018 9:50 AM EST 05/25/2018 9:57 AM EST us Carl Kent MD LAB BLOOD BKR ORDERABLES Fi nal Result [facility] [address] [place] [address] * (ABNORMAL) Comprehensive metabolic panel (05/25/2018 9:50 AM EST) SODIUM 143 133 - 146 mmol/L [facility] POTASSIUM 4.2 3.3 - 5.1 mmol/L [facility] CHLORIDE 105 96 - 108 mmol/L [facility] CO2 29 21 - 35 mmol/L [facility] BUN 21(H) 6 - 19 mg/dL [facility] CREATININE 1.50 0.5 - 1.5 mg/dL [facility] GLUCOSE 93 70 - 99 mg/dL [facility] ALBUMIN 3.9 3.9 - 4.8 g/dL [facility] TOTAL PROTEIN 6.4(L) 6.5 - 8.0 g/dL [facility] CALCIUM 11.0(H) 8.4 - 10.3 mg/dL [facility] ALKALINE PHOSPHATASE 63 39 - 117 U/L [facility] TOTAL BILIRUBIN 0.5 0.0 - 1.2 mg/dL [facility] AST 23 0 - 37 U/L [facility] ALT 25 0 - 40 U/L [facility] GLOBULIN 2.5 1 - 4.8 g/dL [facility] EGFR 52(L) >59 mL/min/1.7 3m2 [facility] Comment:If patient is black, multiply result by 1.159. Estimated glomerular filtration rate calculated using the CKD-EPI equation. ANION GAP 13 10 - 20 mmol/L [facility] Blood 05/25/2018 9:50 AM EST 05/25/2018 9:57 AM EST us Carl Kent MD LAB BLOOD BKR ORDERABLES Fi nal Result [facility] [address] [place] [address] documented in this encounter Visit Diagnoses Diagnosis Essential hypertension, malignant- Primary documented in this encounter Care Teams Svp Programmatic Tv Relationship Specialty Start Date End Date Carl Kent MD [email or web address] PCP - General Family Medicine 05/31/[address], [address] [place] [address] Nephrology 06/06/16 documented as of this encounter Additional Source Comments The information contained in this document represents components of the legal health record. It is not the complete legal health record.[facility]
--- OUTSIDE RECORDS SUMMARY | 2025-04-20 23:26 | XMS_ITS | Encounter Summary ---
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 Not on file Not on file documented as of this encounter Plan of Treatment Upcoming Encounters Date Type Department Care Team (Late st Contact Info) Description 06/10/2025 11:00 AM EST Office Visit [facility] [address] [address] Unknown, Unknown, MD Jimenez, Lorin Orosco, RAILROAD AUDITOR [address] [place] [address] [email or web address] documented as of this encounter Results * Testosterone, bioavailable/total/free (06/01/2018 10:05 AM EST) TESTOSTERONE, TOTAL 441 240 - 950 ng/dL [facility] Comment: (NOTE) ADDITIONAL INFORMATION Testing performed by Liquid Chromatography-Tandem Mass Spectrometry (LC-MS/MS). This test was developed and its performance characteristics determined by [facility] in a manner consistent with CLIA requirements. This test has not been cleared or approved by the U.S. Food and Drug Administration. FREE TESTOSTERONE 11.5 4.06 - 15.6 ng/dL [facility] Comment: (NOTE) ADDITIONAL INFORMATION Testing performed by Equ[facility] D[facility]. This test was developed and its performance characteristics determined by [facility] in a manner consistent with CLIA requirements. This test has not been cleared or approved by the U.S. Food and Drug Administration. BIOAVAIL TESTOST 159 50 - 190 ng/dL [facility] Comment: (NOTE) ADDITIONAL INFORMATION Testing performed by Differential Precipitation. This test was developed and its performance characteristics determined by [facility] in a manner consistent with CLIA requirements. This test has not been cleared or approved by the U.S. Food and Drug Administration. Blood 06/01/2018 10:0 5 AM EST 06/01/2018 10:11 AM EST us Carl Kent MD LAB BLOOD BKR ORDERABLES Fi nal Result [facility] [address] [place] [address] * (ABNORMAL) Lipid panel (06/01/2018 10:05 AM EST) HDL 43 mg/dL [facility] Comment: Interpretation <40 mg/dL: Low HDL cholesterol (major risk factor for CHD) Greater than or equal to 60 mg/dL: High HDL cholesterol ( negative risk factor for CHD) HDL - cholesterol is affected by a number of factors, e.g. smoking, excerise, hormones, sex and age. CHOLESTEROL 242(H) 0 - 240 mg/dL [facility] TRIGLYCERIDES 332(H) 30 - 160 mg/dL [facility] LDL 133(H) 50 - 129 mg/dL [facility] Comment: LDL levels in terms of risk for coronary heart disease: <100 mg/dL: Optimal 100-129 mg/dL: Near or above optimal 130-159 mg/dL: Borderline high 160-189 mg/dL: High >190 mg/dL: Very High CARDIAC RISK RATIO 5.6(H) 3.4 - 5.0 C [facility] Blood 06/01/2018 10:0 5 AM EST 06/01/2018 10:11 AM EST us Carl Kent MD LAB BLOOD BKR ORDERABLES Fi nal Result Performing Organization Address City/[facility]/ZIP Co de Phone Number [address] [address] documented in this encounter Visit Diagnoses Diagnosis 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 It is not the complete legal health record.[facility]
--- OUTSIDE RECORDS SUMMARY | 2025-04-20 23:26 | XMS_ITS | Encounter Summary ---
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 file Not on file documented as of this encounter Plan of Treatment Upcoming Encounters Date Type Department Care Team (Late st Contact Info) Description 06/10/2025 11:00 AM EST Office Visit [facility] Gastro[facility]ology Clinic [address] [place] [address] Unknown, Unknown, MD Jimenez, Lorin Orosco, FEDERAL APPELLATE LAW CLERK [address] [place] [address] [email or web address] documented as of this encounter Results * (ABNORMAL) Testosterone, total and free (09/29/2017 11:24 AM EDT) FREE TESTOSTERONE 2.52(L) 4.06 - 15.6 ng/dL [facility] Comment: (NOTE) ADDITIONAL INFORMATION Testing performed by [facility]. This test was developed and its performance characteristics determined by [facility] in a manner consistent with CLIA requirements. This test has not been cleared or approved by the U.S. Food and Drug Administration. TESTOSTERONE, TOTAL 105(L) 240 - 950 ng/dL [facility] Comment: (NOTE) ADDITIONAL INFORMATION Testing performed by Liquid Chromatography-Tandem Mass Spectrometry (LC-MS/MS). This test was developed and its performance characteristics determined by [facility] in a manner consistent with CLIA requirements. This test has not been cleared or approved by the U.S. Food and Drug Administration. 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 It is not the complete legal health record.[facility]
--- OUTSIDE RECORDS SUMMARY | 2025-04-20 23:26 | XMS_ITS | Encounter Summary ---
Author Organization 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 [address] [place] [address] Unknown, Unknown, Lorin Lal, ACCIDENT EXAMINER 10 [place] [address] documented as of this encounter Visit Diagnoses Not on filedocumented in this encounter Care Teams Drug Counselor Relationship Specialty Start Date End Date Carl [place] MD [email or web address] PCP - General Family Medicine 05/31/[address], [address] [place] [address] Nephrology 06/06/16 documented as of this encounter Additional Source Comments The information contained in this document represents components of the legal health record. It is not the complete legal health record.[facility]
--- OUTSIDE RECORDS SUMMARY | 2025-04-20 23:26 | XMS_ITS | Encounter Summary ---
Author Organization [facility] Address [address] [place] [address] Phone Care Team Providers Care Signal Engineer Name Role Phone Carl [place] MD Primary Care Provider [phone] Encounter Details Date Type Department Care Team (Late st Contact Info) Description 08/30/2021 Documentation Only [facility] [address] [place] [phone] [place] Ng MD [address] [place] [address] Social History Tobacco Use Types Packs/Day Years [...] on filedocumented in this encounter Care Teams Signal Engineer Relationship Specialty Start Date End Date Carl [place] MD [address] [place] [phone] PCP - General 05/22/20 documented as of this encounter
--- OUTSIDE RECORDS SUMMARY | 2025-04-20 23:27 | XMS_ITS | Encounter Summary ---
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 Not on file Not on file documented as of this encounter Plan of Treatment Upcoming Encounters Date Type Department Care Team (Late Contact Info) Description 06/10/2025 11:00 AM EST Office Visit [facility] [address] [place] [address] Unknown, Unknown, Lorin Lal, STATE DIRECTOR 10 [place] [address] jose documented as of this encounter Visit Diagnoses Not on filedocumented in this encounter Care Teams Traffic Counter Relationship Specialty Start Date End Date Carl [place] MD [email or web address] PCP - General Family Medicine 05/31/16 [facility], [address] [place] [address] Nephrology 06/06/16 documented as of this encounter Additional Source Comments The information contained in this document represents components of the legal health record. It is not the complete legal health record.[facility]
--- OUTSIDE RECORDS SUMMARY | 2025-04-20 23:27 | XMS_ITS | Encounter Summary ---
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 file Not on file documented as of this encounter Plan of Treatment Upcoming Encounters Date Type Department Care Team (Late st Contact Info) Description 06/10/2025 11:00 AM EST Office Visit [facility] [address] [place] [address] Unknown, Unknown, Lorin Lal, SKIRT CLIPPER 10 [place] [address] [email or web address] documented as of this encounter Results * Testosterone, total (06/04/2019 11:17 AM EST) TESTOSTERONE 827 249 - 836 ng/dL [facility] Blood 06/04/2019 11:1 7 AM EST 06/04/2019 12:23 PM EST us Carl [place] MD LAB BLOOD BKR ORDERABLES Fi nal Result [facility] [address] [place] [address] documented in this encounter Visit Diagnoses Diagnosis Impotence of organic origin- Primary documented in this encounter Care Teams Accountant Tax Relationship Specialty Start Date End Date Carl [place] MD [email or web address] PCP - General Family Medicine 05/31/16 [facility] [address] [place] [address], [address] [place] [address] Nephrology 06/06/16 documented as of this encounter Additional Source Comments The information contained in this document represents components of the legal health record. It is not the complete legal health record.[facility]
--- OUTSIDE RECORDS SUMMARY | 2025-04-20 23:27 | XMS_ITS | Encounter Summary ---
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 Not on file Not on file documented as of this encounter Plan of Treatment Upcoming Encounters Date Type Department Care Team (Late st Contact Info) Description 06/10/2025 11:00 AM EST Office Visit [facility] [address] [place] [address] Unknown, Unknown, Lorin Lal, THERMO PROCESSOR 10 [place], [place] [phone] documented as of this encounter Results * Phosphorus (10/20/2017 10:54 AM EDT) PHOSPHORUS 3.1 2.7 - 4.5 mg/dL [facility] Blood 10/20/2017 10:5 4 AM EDT 10/20/2017 11:10 AM EDT us Carlos Lorenzo MD LAB BLOOD BKR ORDERABL ES Final Result [facility] [address] [place] [address] * (ABNORMAL) Comprehensive metabolic panel (10/20/2017 10:54 AM EDT) SODIUM 138 133 - 146 mmol/L [facility] POTASSIUM 4.8 3.3 - 5.1 mmol/L [facility] CHLORIDE 100 96 - 108 mmol/L [facility] CO2 24 21 - 35 mmol/L [facility] BUN 33(H) 6 - 19 mg/dL [facility] CREATININE 1.70(H) 0.5 - 1.5 mg/dL [facility] GLUCOSE 75 70 - 99 mg/dL [facility] ALBUMIN 4.0 3.9 - 4.8 g/dL [facility] TOTAL PROTEIN 6.7 6.5 - 8.0 g/dL [facility] CALCIUM 10.6(H) 8.4 - 10.3 mg/dL [facility] ALKALINE PHOSPHATASE 55 39 - 117 U/L [facility] TOTAL BILIRUBIN 0.7 0.0 - 1.2 mg/dL [facility] AST 30 0 - 37 U/L [facility] ALT 19 0 - 40 U/L [facility] GLOBULIN 2.7 1 - 4.8 g/dL [facility] EGFR 45(L) >59 mL/min/1.7 3m2 [facility] Comment:If patient is black, multiply result by 1.159. Estimated glomerular filtration rate calculated using the CKD-EPI equation. ANION GAP 19 10 - 20 mmol/L [facility] Blood 10/20/2017 10:5 4 AM EDT 10/20/2017 11:10 AM EDT us Carlos Lorenzo MD LAB BLOOD BKR ORDERABL ES Final Result [address] [address] documented in this encounter Visit Diagnoses Diagnosis Status post parathyroidectomy- Primary Other postprocedural status documented in this encounter Care Teams Coiled Tubing Operator Relationship Specialty Start Date End Date Carl [place] MD PCP - General Family Medicine 05/31/16 [facility] [address] [place] [address], [address] [place] [address] Nephrology 06/06/16 documented as of this encounter Additional Source Comments The information contained in this document represents components of the legal health record. It is not the complete legal health record.[facility]
--- OUTSIDE RECORDS SUMMARY | 2025-04-20 23:27 | XMS_ITS | Encounter Summary ---
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 on file Not on file documented as of this encounter Plan of Treatment Upcoming Encounters Date Type Department Care Team (Late st Contact Info) Description 06/10/2025 11:00 AM EST Office Visit [facility] [address] [place] [phone] Unknown, Unknown, MD Jimenez, Lorin Orosco, BRANCH ADMINISTRATOR 10 [place], [place] [phone] documented as of this encounter Visit Diagnoses Not on filedocumented in this encounter Care Teams Cupola Melting Supervisor Relationship Specialty Start Date End Date Carl [place] MD [email or web address] PCP - General Family Medicine 05/31/16 [facility] [address], [address] [place] [address] Nephrology 06/06/16 documented as of this encounter Additional Source Comments The information contained in this document represents components of the legal health record. It is not the complete legal health record.[facility]
--- OUTSIDE RECORDS SUMMARY | 2025-04-20 23:27 | XMS_ITS | Data Portability ---
Author Organization [place] [facility] Address [address] [place] [phone] Care Team Providers Care Drop Forger Helper Name Role Phone EDUARDO EVERETT Primary Care [...] Sensorineur al hearing loss of bilateral ears [id number] Active 2023 ISAÍAS JAMES, AUD [address] [facility] [place], [address], [facility] - [facility] 4 13:57:57 Bilateral tinnitus [id number] Active 2023 Analilia peterson [place] [facility] 14:36:37 Problem Notes None recorded. Procedures Surgical History Date Name Laterality Status Provider Name and Address Organization Details Recorded Time 02/26/2024 Comp Audio with Tymps - 51373 & 22786 completed ISAÍAS JAMES, AUD [address] [facility], [place], [address], [facility] - [facility] 02/26/2024 13:57:47 Imaging Results None recorded. Procedure [...] Not Available Not Available Not Available Hypodermic [place] 23 gauge x 1 USE DIRECTED TO ADMINISTER active Not Available Not Available N ot Available terbinafine HCl 250 mg tablet TAKE 1 TABLET BY MOUTH EVERY DAY active Not Available Not Available No t Available BD Regular Bevel [place] 18 gauge x 1 USE DIRECTED FOR [...] Available No t Available BD Regular Bevel [place] 22 gauge x 1 USE DIRECTED TO [...] Updated DateTime 02/26/2024 175.26 cm 27.3 kg/m2 06061.59 g Marium [place] - [facility] 02/26/2024 14:29:31 Social History None recorded. Functional Status None recorded. Mental Status None recorded. Family History Nothing Reported. Medical History No medical history recorded. Past Encounters Encounter ID Performer Location Encounter Start Date Encounter Closed Date Diagnosis/Indication Diagnosis SNOMED-CT Code Diagnosis ICD10 Code Diagnosis IMO Codes Diagnosis Note [id number] ANALILIA BETH PA-C [facility] on [address] [place] [address] 02/26/2024 13:42:35 02/26/2024 14:50:54 Sensorineural hearing loss of bilateral ears 165748233 H90.3 Audiologic al evaluation results: Right ear: Normal sloping to mild sensorineu ral hearing loss with excellent word recognitio n. Left ear: Normal sloping to mild sensorineu ral hearing loss with excellent word recognitio n. Tympanomet ry: Right Ear:Type A Left Ear:Type A Bilateral tinnitus 23880 [address] 102 H93.13 Health Concerns Section Related Observation LastModified by Organization Detai ls LastModified Time None Recorded Concern Status LastModified by Organization Details LastModified Time None Recorded Advance Directives Directive None Recorded Payers Insurance Date Sequence Insurance Name Policy Number Policy Gregorio Covered Member ID Gregorio Member ID Guarantor Name 02/26/2024 1 [place] [id number] Ashley Lorenzo [id number] Rashard Lorenzo Notes Date Note Type Note Provider Name and Address Organization Details Recorded Time 02/26/2024 text/html ROS as noted in the HPI 58 year old male presents today for evaluation of tinnitus.He reports symptoms started about five years ago. He describes the tinnitus as high pitched and bilateral. For the most part he can ignore it and does not find it terribly bothersome. 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 His father had hearing loss and wore hearing aids. Analilia peterson [place] - [facility] 02/26/2024 14:36:54
--- OUTSIDE RECORDS SUMMARY | 2025-04-20 23:27 | XMS_ITS | Encounter Summary ---
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 on file Not on file documented as of this encounter Plan of Treatment Upcoming Encounters Date Type Department Care Team (Late st Contact Info) Description 06/10/2025 11:00 AM EST Office Visit [facility] [address] [place] [phone] Unknown, Unknown, Lorin Lal, PHARMACEUTICAL PLANT OPERATOR 10 [place] [address] documented as of this encounter Visit Diagnoses Not on filedocumented in this encounter Care Teams Administrative Supervisor Relationship Specialty Start Date End Date Carl [place] MD [email or web address] PCP - General Family Medicine 05/31/[address], [address] [place] [address] Nephrology 06/06/16 documented as of this encounter Additional Source Comments The information contained in this document represents components of the legal health record. It is not the complete legal health record.[facility]
--- OUTSIDE RECORDS SUMMARY | 2025-04-20 23:27 | XMS_ITS | Encounter Summary ---
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 Not on file Not on file documented as of this encounter Plan of Treatment Upcoming Encounters Date Type Department Care Team (Late st Contact Info) Description 06/10/2025 11:00 AM EST Office Visit [facility] [address] [place] [address] Unknown, Unknown, Lorin Lal, EXPLORATION GEOLOGIST 10 [place] [address] documented as of this encounter Visit Diagnoses Not on filedocumented in this encounter Care Teams Hi Teacher Relationship Specialty Start Date End Date Carl [place] MD PCP - General Family Medicine 05/31/[address], [address] [place] [address] Nephrology 06/06/16 documented as of this encounter Additional Source Comments The information contained in this document represents components of the legal health record. It is not the complete legal health record.[facility]
--- OUTSIDE RECORDS SUMMARY | 2025-04-20 23:27 | XMS_ITS | Encounter Summary ---
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 Not on file Not on file documented as of this encounter Plan of Treatment Upcoming Encounters Date Type Department Care Team (Late st Contact Info) Description 06/10/2025 11:00 AM EST Office Visit [facility] [address]enter[address] [address] Unknown, Unknown, MD Jimenez, Lorin Orosco, TRAFFIC SURVEY TECHNICIAN 10 [place] [address] [email or web address] documented as of this encounter Results * (ABNORMAL) Testosterone, total and free (12/28/2018 10:30 AM EDT) FREE TESTOSTERONE 1.52(L) 4.06 - 15.6 ng/dL [facility] Comment: (NOTE) ADDITIONAL INFORMATION Testing performed by [facility]. This test was developed and its performance characteristics determined by [facility] in a manner consistent with CLIA requirements. This test has not been cleared or approved by the U.S. Food and Drug Administration. TESTOSTERONE, TOTAL 76(L) 240 - 950 ng/dL [facility] Comment: (NOTE) ADDITIONAL INFORMATION Testing performed by Liquid Chromatography-Tandem Mass Spectrometry (LC-MS/MS). This test was developed and its performance characteristics determined by [facility] in a manner consistent with CLIA requirements. This test has not been cleared or approved by the U.S. Food and Drug Administration. 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 It is not the complete legal health record.[facility]
--- OUTSIDE RECORDS SUMMARY | 2025-04-20 23:27 | XMS_ITS | Encounter Summary ---
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 Not on file Not on file documented as of this encounter Plan of Treatment Upcoming Encounters Date Type Department Care Team (Late st Contact Info) Description 06/10/2025 11:00 AM EST Office Visit [facility] [address] [place] [address] [phone] Unknown, Unknown, Lorin Lal, PRICING CLERK 10 [place], [place] [phone] [email or web address] documented as of this encounter Results * (ABNORMAL) Phosphorus (10/02/2017 11:36 AM EDT) PHOSPHORUS 2.6(L) 2.7 - 4.5 mg/dL [facility] Blood 10/02/2017 11:3 6 AM EDT 10/02/2017 11:41 AM EDT us Carlos Lornezo MD LAB BLOOD BKR ORDERABL ES Final Result [address] [id number] * (ABNORMAL) Comprehensive metabolic panel (10/02/2017 11:36 AM EDT) SODIUM 140 133 - 146 mmol/L [facility] POTASSIUM 4.4 3.3 - 5.1 mmol/L [facility] CHLORIDE 98 96 - 108 mmol/L [facility] CO2 23 21 - 35 mmol/L [facility] BUN 42(H) 6 - 19 mg/dL [facility] CREATININE 2.10(H) 0.5 - 1.5 mg/dL [facility] GLUCOSE 74 70 - 99 mg/dL [facility] ALBUMIN 4.1 3.9 - 4.8 g/dL [facility] TOTAL PROTEIN 6.8 6.5 - 8.0 g/dL [facility] CALCIUM 10.3 8.4 - 10.3 mg/dL [facility] ALKALINE PHOSPHATASE 54 39 - 117 U/L [facility] TOTAL BILIRUBIN 0.8 0.0 - 1.2 mg/dL [facility] AST 19 0 - 37 U/L [facility] ALT 18 0 - 40 U/L [facility] GLOBULIN 2.7 1 - 4.8 g/dL [facility] EGFR 35(L) >59 mL/min/1.7 3m2 [facility] Comment:If patient is black, multiply result by 1.159. The eGFR calculation has changed from the MDRD equation to the CKD-EPI equation as of July 15, 2017. ANION GAP 23(H) 10 - 20 mmol/L [facility] Blood 10/02/2017 11:3 6 AM EDT 10/02/2017 11:41 AM EDT us Carlos Lorenzo MD LAB BLOOD BKR ORDERABL ES Final Result [facility] [address] [place] [address] documented in this encounter Visit Diagnoses Diagnosis Status post parathyroidectomy- Primary Other postprocedural status Hypercalcemia documented in this encounter Care Teams Member Of Parliament Relationship Specialty Start Date End Date Carl [place] MD PCP - General Family Medicine 05/31/16 [facility] [address], [address] [place] [address] Nephrology 06/06/16 documented as of this encounter Additional Source Comments The information contained in this document represents components of the legal health record. It is not the complete legal health record.[facility]
--- OUTSIDE RECORDS SUMMARY | 2025-04-20 23:27 | XMS_ITS | Encounter Summary ---
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 Not on file documented as of this encounter Plan of Treatment Upcoming Encounters Date Type Department Care Team (Late st Contact Info) Description 06/10/2025 11:00 AM EST Office Visit [facility] [address] [place] [address] [phone] Unknown, Unknown, Lorin Lal, GLOBAL UPSTREAM MARKETING MANAGER 10 [place], [place] [phone] [email or web address] documented as of this encounter Results * Phosphorus (10/08/2017 11:15 AM EDT) PHOSPHORUS 3.6 2.7 - 4.5 mg/dL [facility] Blood 10/08/2017 11:1 5 AM EDT 10/08/2017 11:18 AM EDT us Carlos Lorenzo MD LAB BLOOD BKR ORDERABL ES Final Result [facility] [address] [place] [address] * (ABNORMAL) Comprehensive metabolic panel (10/08/2017 11:15 AM EDT) SODIUM 140 133 - 146 mmol/L [facility] POTASSIUM 4.7 3.3 - 5.1 mmol/L [facility] CHLORIDE 101 96 - 108 mmol/L [facility] CO2 27 21 - 35 mmol/L [facility] BUN 40(H) 6 - 19 mg/dL [facility] CREATININE 2.00(H) 0.5 - 1.5 mg/dL [facility] GLUCOSE 90 70 - 99 mg/dL [facility] ALBUMIN 4.1 3.9 - 4.8 g/dL [facility] TOTAL PROTEIN 6.8 6.5 - 8.0 g/dL [facility] CALCIUM 9.8 8.4 - 10.3 mg/dL [facility] ALKALINE PHOSPHATASE 54 39 - 117 U/L [facility] TOTAL BILIRUBIN 0.7 0.0 - 1.2 mg/dL [facility] AST 22 0 - 37 U/L [facility] ALT 14 0 - 40 U/L [facility] GLOBULIN 2.7 1 - 4.8 g/dL [facility] EGFR 37(L) >59 mL/min/1.7 3m2 [facility] Comment:If patient is black, multiply result by 1.159. The eGFR calculation has changed from the MDRD equation to the CKD-EPI equation as of July 15, 2017. ANION GAP 17 10 - 20 mmol/L [facility] Blood 10/08/2017 11:1 5 AM EDT 10/08/2017 11:18 AM EDT us Carlos Lorenzo MD LAB BLOOD BKR ORDERABL ES Final Result [facility] [address] [place] [address] documented in this encounter Visit Diagnoses Diagnosis Status post parathyroidectomy- Primary Other postprocedural status Hypercalcemia documented in this encounter Care Teams Rail Layer Relationship Specialty Start Date End Date Carl Kent MD PCP - General Family Medicine 05/31/16 LUZ [address]I [address] [place] [address], [address] [place] [address] Nephrology 06/06/16 documented as of this encounter Additional Source Comments The information contained in this document represents components of the legal health record. It is not the complete legal health record.[facility]
--- OUTSIDE RECORDS SUMMARY | 2025-04-20 23:27 | XMS_ITS | Encounter Summary ---
Author Organization [facility] Address [address] [place] [address] Phone Care Team Providers Care Reading Intervention Teacher Name Role Phone Carl Kent MD Primary Care Provider [phone]- [phone] Reason for Referral * MRI/CAT Scan - Closed Specialty Diagnoses / Procedures Referred By Contac t Referred To Contact Radiology Diagnoses Dilation of biliary tract IPMN (intraductal papillary mucinous neoplasm) Procedures MRI Cholangiopancreatography (MRCP) CHG MRI, ABDOMEN, COMBO CHG MRI, ABDOMEN (MRI) CHG MRI, ABDOMEN W/CONTRAST Fei Walls MD Phone: tel: fax: [email or web address] Referral ID Status Reason Start Date Expiration Date Visits Re quested Visits Authorized [id number] Closed 10/16/2022 12/14/2022 1 1 Encounter Details Date Type Department Care Team (Latest Contact Info) Description 10/16/2022 Transcribe Orders Virtual Department [address] [place] [address] Fei Walls MD [address] [place] [phone] [email or web address] Dilation of biliary tract (Primary Dx); IPMN [...] 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 on file Not on file documented as of this encounter Plan of Treatment Upcoming Encounters Date Type Department Care Team (Late st Contact Info) Description 06/10/2025 11:00 AM EST Office Visit [facility] [address] [place] [phone] Unknown, Unknown, MD Jimenez, Lorin Orosco, MASTER STEAM YACHT [address] [place] [address] [email or web address] documented as of this encounter Results * [...] system documented in this encounter Care Teams Reading Intervention Teacher Relationship Specialty Start Date End Date Carl Kent MD PCP - General Family Medicine 05/31/[address], [address] [place] [address] Nephrology 06/06/16 documented as of this encounter Additional Source Comments The information contained in this document represents components of the legal health record. It is not the complete legal health record.[facility]
--- OUTSIDE RECORDS SUMMARY | 2025-04-20 23:27 | XMS_ITS | Encounter Summary ---
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 file Not on file documented as of this encounter Plan of Treatment Upcoming Encounters Date Type Department Care Team (Late st Contact Info) Description 06/10/2025 11:00 AM EST Office Visit [facility]astroenterology Clinic 10 [place] [address] Unknown, Unknown, MD Jimenez, Lorin Orosco, LEATHER SOFTENER 10 [place] [address] documented as of this encounter Visit Diagnoses Not on filedocumented in this encounter Care Teams Urban Planning Professor Relationship Specialty Start Date End Date Carl Kent MD PCP - General Family Medicine 05/31/[address] [place] [address], [address] [place] [address] Nephrology 06/06/16 documented as of this encounter Additional Source Comments The information contained in this document represents components of the legal health record. It is not the complete legal health record.[facility]
--- OUTSIDE RECORDS SUMMARY | 2025-04-20 23:27 | XMS_ITS | Clinical Summary ---
Author Organization [facility] Address [address] [place] [address] Phone Care Team Providers Care Host Hostess Name Role Phone Carl Kent MD Primary Care Provider Allergies Active Allergy [...] patient's age to complete this topic [place] [address] [place] [address] [facility] Care Teams Host Hostess Relationship Specialty Start Date End Date Calr Kent MD [address] [place] [phone] PCP - General 05/22/20
--- OUTSIDE RECORDS SUMMARY | 2025-04-20 23:27 | XMS_ITS | Encounter Summary ---
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 on file Not on file documented as of this encounter Plan of Treatment Upcoming Encounters Date Type Department Care Team (Late st Contact Info) Description 06/10/2025 11:00 AM EST Office Visit [facility] [address] [place] [address] [phone] Unknown, Unknown, Lorin Lal, ELECTRIC MOTOR REBUILDER 10 [place] [address] documented as of this encounter Results * Phosphorus (12/17/2017 11:38 AM EDT) PHOSPHORUS 3.9 2.7 - 4.5 mg/dL [facility] Blood 12/17/2017 11:3 8 AM EDT 12/17/2017 11:52 AM EDT us Carlos Lorenzo MD LAB BLOOD BKR ORDERABL ES Final Result [facility] [address] [place] [address] * (ABNORMAL) Comprehensive metabolic panel (12/17/2017 11:38 AM EDT) SODIUM 139 133 - 146 mmol/L [facility] POTASSIUM 4.0 3.3 - 5.1 mmol/L [facility] CHLORIDE 99 96 - 108 mmol/L [facility] CO2 24 21 - 35 mmol/L [facility] BUN 26(H) 6 - 19 mg/dL [facility] CREATININE 1.60(H) 0.5 - 1.5 mg/dL [facility] GLUCOSE 98 70 - 99 mg/dL [facility] ALBUMIN 4.0 3.9 - 4.8 g/dL [facility] TOTAL PROTEIN 6.9 6.5 - 8.0 g/dL [facility] CALCIUM 10.8(H) 8.4 - 10.3 mg/dL [facility] ALKALINE PHOSPHATASE 54 39 - 117 U/L [facility] TOTAL BILIRUBIN 0.7 0.0 - 1.2 mg/dL [facility] AST 17 0 - 37 U/L [facility] ALT 26 0 - 40 U/L [facility] GLOBULIN 2.9 1 - 4.8 g/dL [facility] EGFR 48(L) >59 mL/min/1.7 3m2 [facility] Comment:If patient is black, multiply result by 1.159. Estimated glomerular filtration rate calculated using the CKD-EPI equation. ANION GAP 20 10 - 20 mmol/L [facility] Blood 12/17/2017 11:3 8 AM EDT 12/17/2017 11:52 AM EDT us Carlos Lorenzo MD LAB BLOOD BKR ORDERABL ES Final Result [facility] [address] [place] [address] documented in this encounter Visit Diagnoses Diagnosis Status post parathyroidectomy- Primary Other postprocedural status Hypercalcemia documented in this encounter Care Teams Boiler/Chiller Operator Relationship Specialty Start Date End Date aCrl Kent MD PCP - General Family Medicine 05/31/16 LUZ HUNTLEY [address] [place] [address], [address] [place] [address] Nephrology 06/06/16 documented as of this encounter Additional Source Comments The information contained in this document represents components of the legal health record. It is not the complete legal health record.[facility]
--- OUTSIDE RECORDS SUMMARY | 2025-04-20 23:27 | XMS_ITS | Encounter Summary ---
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 on file Not on file documented as of this encounter Plan of Treatment Upcoming Encounters Date Type Department Care Team (Late st Contact Info) Description 06/10/2025 11:00 AM EST Office Visit [facility] Gastroenterology Clinic 10 [place] [address] Unknown, Unknown, Lorin Lal, FAN BLADE ALIGNER 10 [place] [address] documented as of this encounter Visit Diagnoses Not on filedocumented in this encounter Care Teams Senior Naval Parachutist Relationship Specialty Start Date End Date Carl Kent MD PCP - General Family Medicine 05/31/[address], [address] [place] [address] Nephrology 06/06/16 documented as of this encounter Additional Source Comments The information contained in this document represents components of the legal health record. It is not the complete legal health record.[facility]
--- OUTSIDE RECORDS SUMMARY | 2025-04-20 23:27 | XMS_ITS | Encounter Summary ---
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 Not on file documented as of this encounter Plan of Treatment Upcoming Encounters Date Type Department Care Team (Late Contact Info) Description 06/10/2025 11:00 AM EST Office Visit [facility]astro[facility]ology [facility] 10 [place] [address] Unknown, Unknown, Lorin Lal, LINUX ADMIN ENGINEER 10 [place] [address] [email or web address] documented as of this encounter Results * (ABNORMAL) Testosterone, total and free (03/29/2019 7:34 AM EST) FREE TESTOSTERONE 3.97(L) 4.06 - 15.6 ng/dL [facility] Comment: (NOTE) ADDITIONAL INFORMATION Testing performed by [facility]. This test was developed and its performance characteristics determined by [facility] in a manner consistent with CLIA requirements. This test has not been cleared or approved by the U.S. Food and Drug Administration. TESTOSTERONE, TOTAL 147(L) 240 - 950 ng/dL [facility] Comment: (NOTE) ADDITIONAL INFORMATION Testing performed by Liquid Chromatography-Tandem Mass Spectrometry (LC-MS/MS). This test was developed and its performance characteristics determined by [facility] in a manner consistent with CLIA requirements. This test has not been cleared or approved by the U.S. Food and Drug Administration. Blood 03/29/2019 7:34 AM EST 03/29/2019 7:58 AM EST us Carl Kent MD LAB BLOOD BKR ORDERABLES Fi nal Result [facility] [address] [place] [address] * (ABNORMAL) Lipid panel (03/29/2019 7:34 AM EST) HDL 39 mg/dL [facility] Comment: Interpretation <40 mg/dL: Low HDL cholesterol (major risk factor for CHD) Greater than or equal to 60 mg/dL: High HDL cholesterol ( negative risk factor for CHD) HDL - cholesterol is affected by a number of factors, e.g. smoking, excerise, hormones, sex and age. CHOLESTEROL 214 0 - 240 mg/dL [facility] TRIGLYCERIDES 246(H) 30 - 160 mg/dL [facility] LDL 126 50 - 129 mg/dL [facility] Comment: LDL levels in terms of risk for coronary heart disease: <100 mg/dL: Optimal 100-129 mg/dL: Near or above optimal 130-159 mg/dL: Borderline high 160-189 mg/dL: High >190 mg/dL: Very High CARDIAC RISK RATIO 5.5(H) 3.4 - 5.0 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 It is not the complete legal health record.[facility]
--- OUTSIDE RECORDS SUMMARY | 2025-04-20 23:27 | XMS_ITS | Encounter Summary ---
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 Not on file documented as of this encounter Plan of Treatment Upcoming Encounters Date Type Department Care Team (Late st Contact Info) Description 06/10/2025 11:00 AM EST Office Visit [facility] Gastro[facility]ology [facility] [address] [place] [address] [phone] Unknown, Unknown, Lorin Lal, SNOWMAKER 10 [place], [place] [phone] documented as of this encounter Results * Phosphorus (10/04/2017 8:48 AM EDT) PHOSPHORUS 3.6 2.7 - 4.5 mg/dL [facility] Blood 10/04/2017 8:48 AM EDT 10/04/2017 8:52 AM EDT us Carlos Lorenzo MD LAB BLOOD BKR ORDERABL ES Final Result [facility] [address] [place] [address] * (ABNORMAL) Comprehensive metabolic panel (10/04/2017 8:48 AM EDT) SODIUM 140 133 - 146 mmol/L [facility] POTASSIUM 4.3 3.3 - 5.1 mmol/L [facility] CHLORIDE 100 96 - 108 mmol/L [facility] CO2 26 21 - 35 mmol/L [facility] BUN 38(H) 6 - 19 mg/dL [facility] CREATININE 2.00(H) 0.5 - 1.5 mg/dL [facility] GLUCOSE 123(H) 70 - 99 mg/dL [facility] ALBUMIN 3.9 3.9 - 4.8 g/dL [facility] TOTAL PROTEIN 6.6 6.5 - 8.0 g/dL [facility] CALCIUM 10.3 8.4 - 10.3 mg/dL [facility] ALKALINE PHOSPHATASE 62 39 - 117 U/L [facility] TOTAL BILIRUBIN 0.6 0.0 - 1.2 mg/dL [facility] AST 19 0 - 37 U/L [facility] ALT 18 0 - 40 U/L [facility] GLOBULIN 2.7 1 - 4.8 g/dL [facility] EGFR 37(L) >59 mL/min/1.7 3m2 [facility] Comment:If patient is black, multiply result by 1.159. The eGFR calculation has changed from the MDRD equation to the CKD-EPI equation as of July 15, 2017. ANION GAP 18 10 - 20 mmol/L [facility] Blood 10/04/2017 8:48 AM EDT 10/04/2017 8:52 AM EDT us Carlos Lorenzo MD LAB BLOOD BKR ORDERABL ES Final Result [facility] [address] [place] [address] documented in this encounter Visit Diagnoses Diagnosis Status post parathyroidectomy- Primary Other postprocedural status Hypercalcemia documented in this encounter Care Teams Email Marketing Executive Relationship Specialty Start Date End Date Carl Kent MD PCP - General Family Medicine 05/31/16 FATIMAHJUN HUNTLEY [address] [place] [address], [address] [place] [address] Nephrology 06/06/16 documented as of this encounter Additional Source Comments The information contained in this document represents components of the legal health record. It is not the complete legal health record.[facility]
== END 2025-04-20 16:11 | disposition home or self-care (01) ==
LOC: HO.HUSH 14:54
PROVIDERS: PCP Family Medicine; Visit Provider Urology
DX: Z13.9 Encounter for screening, unspecified (principal)

== ENCOUNTER → 2025-04-20 14:54 | Outpatient (BNVA) | payer BC, SELFPAY | PROVIDERS: PCP Family Medicine; Visit Provider Urology | DX: N41.9 Inflammatory disease of prostate, unspecified (principal) | CPT/HCPCS: 81003 ==

== ENCOUNTER 2025-04-27 08:38 | Outpatient (REF) | payer BC, SELFPAY ==
--- OUTSIDE RECORDS SUMMARY | 2025-04-27 08:56 | XMS_ITS | Encounter Summary ---
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 Not on file Not on file documented as of this encounter Plan of Treatment Upcoming Encounters Date Type Department Care Team (Late st Contact Info) Description 06/10/2025 11:00 AM EST Office Visit [facility] Gastroenterology Clinic 10 [place] [address] Unknown, Unknown, Lorin Lal, NURSING TEACHER 10 [place] [address] [email or web address] documented as of this encounter Results * Uric acid (05/25/2018 9:50 AM EST) URIC ACID 5.3 2.4 - 7.0 mg/dL [facility] Blood 05/25/2018 9:50 AM EST 05/25/2018 9:57 AM EST us Carl Kent MD LAB BLOOD BKR ORDERABLES Fi nal Result [facility] [address] [place] [address] * (ABNORMAL) Comprehensive metabolic panel (05/25/2018 9:50 AM EST) SODIUM 143 133 - 146 mmol/L [facility] POTASSIUM 4.2 3.3 - 5.1 mmol/L [facility] CHLORIDE 105 96 - 108 mmol/L [facility] CO2 29 21 - 35 mmol/L [facility] BUN 21(H) 6 - 19 mg/dL [facility] CREATININE 1.50 0.5 - 1.5 mg/dL [facility] GLUCOSE 93 70 - 99 mg/dL [facility] ALBUMIN 3.9 3.9 - 4.8 g/dL [facility] TOTAL PROTEIN 6.4(L) 6.5 - 8.0 g/dL [facility] CALCIUM 11.0(H) 8.4 - 10.3 mg/dL [facility] ALKALINE PHOSPHATASE 63 39 - 117 U/L [facility] TOTAL BILIRUBIN 0.5 0.0 - 1.2 mg/dL [facility] AST 23 0 - 37 U/L [facility] ALT 25 0 - 40 U/L [facility] GLOBULIN 2.5 1 - 4.8 g/dL [facility] EGFR 52(L) >59 mL/min/1.7 3m2 [facility] Comment:If patient is black, multiply result by 1.159. Estimated glomerular filtration rate calculated using the CKD-EPI equation. ANION GAP 13 10 - 20 mmol/L [facility] Blood 05/25/2018 9:50 AM EST 05/25/2018 9:57 AM EST us Calr Kent MD LAB BLOOD BKR ORDERABLES Fi nal Result [facility] [address] [place] [address] documented in this encounter Visit Diagnoses Diagnosis Essential hypertension, malignant- Primary documented in this encounter Care Teams Noise Abatement Engineer Relationship Specialty Start Date End Date Carl Kent MD [email or web address] PCP - General Family Medicine 05/31/[address], [address] [place] [address] Nephrology 06/06/16 documented as of this encounter Additional Source Comments The information contained in this document represents components of the legal health record. It is not the complete legal health record.[facility]
--- OUTSIDE RECORDS SUMMARY | 2025-04-27 08:56 | XMS_ITS | Encounter Summary ---
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 Not on file Not on file documented as of this encounter Functional Status * Calculated C-SSRS Risk Score (Lifetime/Recent) Answer Date of Assessment Author No Risk Indicated 07/23/2021 9:38 PM AIDANT Tod Lilly RN * Sierra Suicide Severity Rating Scale (Screener/Recent Self-Report) Question [...] Description 06/10/2025 11:00 AM EST Office Visit [facility] [address] [place] [address] Unknown, Unknown, Lorin Lal, DAIRY FARM SUPERVISOR [address] [place] [address] documented as of this encounter Visit Diagnoses Not on filedocumented in this encounter Care Teams Rn Wound Relationship Specialty Start Date End Date Carl eKnt MD PCP - General Family Medicine 05/31/16 LUZ HUNTLEY [address] [place] [address], [address] [place] [address] Nephrology 06/06/16 documented as of this encounter Additional Source Comments The information contained in this document represents components of the legal health record. It is not the complete legal health record.[facility]
--- OUTSIDE RECORDS SUMMARY | 2025-04-27 08:56 | XMS_ITS | Encounter Summary ---
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 file Not on file documented as of this encounter Functional Status * Calculated C-SSRS Risk Score (Lifetime/Recent) Answer Date of Assessment Author No Risk Indicated 07/23/2021 9:38 PM AIDANT Tod Lilly RN * Terrell Suicide Severity Rating Scale (Screener/Recent Self-Report) Question [...] Office Visit [facility] 10 [place] [address] Unknown, Unknown, Lorin Lal, LANDING GEAR MECHANIC 10 [place] [address] documented as of this encounter Visit Diagnoses Not on filedocumented in this encounter Care Teams Oil Recovery Operator Relationship Specialty Start Date End Date Carl [place] MD PCP - General Family Medicine 05/31/16 LUZ HUNTLEY [address] [place] [address], [address] [place] [address] Nephrology 06/06/16 documented as of this encounter Additional Source Comments The information contained in this document represents components of the legal health record. It is not the complete legal health record.[facility]
--- OUTSIDE RECORDS SUMMARY | 2025-04-27 08:56 | XMS_ITS | Clinical Summary ---
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 on file Not [...] Description 06/10/2025 11:00 AM EST Office Visit [facility] [address] [place] [address] Unknown, Unknown, Lorin Lal, FILES SUPERVISOR 10 [place] [address] Health Maintenance Due Date Last Done Comments [...] 15.40(H) <=4.00 ng/mL 04/05/2025 5:10 PM EST [facility] Blood (Blood) Venipuncture / Unknown 04/05/2025 11:06 AM EST 04/05/2025 11:06 AM EST us Eduardo Everett MD LAB BLOOD BKR ORDERABLES Fi nal Result [address] [address] * (ABNORMAL) Creatinine/eGFR (02/04/2025 11:45 AM EDT) CREATININE 2.60(H) 0.5 - 1.5 mg/dL [facility] EGFR 27(L) >59 mL/min/1.7 3m2 [facility] Comment:Estimated glomerular filtration rate calculated using the CKD-EPI refit equation. Blood 02/04/2025 11:4 5 AM EDT 02/04/2025 11:47 AM EDT us Benson Ng MD LAB BLOOD BKR ORD ERABLES Final Result [address] [address] * 25-OH vitamin D (02/04/2025 11:45 AM EDT) 25 OH VIT D (TOTAL) 41 30 - 60 ng/mL [facility] Blood 02/04/2025 11:4 5 AM EDT 02/04/2025 11:47 AM EDT us Benson Ng MD LAB BLOOD BKR ORD ERABLES Final Result Performing Organization Address [facility] Co de Phone Number [address] [address] * (ABNORMAL) BUN (02/04/2025 11:45 AM EDT) BUN 23(H) 6 - 19 mg/dL [facility] Blood 02/04/2025 11:4 5 AM EDT 02/04/2025 11:47 AM EDT us Benson Ng MD LAB BLOOD BKR ORD ERABLES Final Result Performing Organization Address [facility]/ZIP Co de Phone Number [address] [address] * Hemoglobin A1c (02/04/2025 11:45 AM EDT) HEMOGLOBIN A1C 5.2 4.3 - 5.8 % [facility] Blood 02/04/2025 11:4 5 AM EDT 02/04/2025 11:47 AM EDT us Benson Ng MD LAB BLOOD BKR ORD ERABLES Final Result Performing Organization Address [facility]/ZIP Co de Phone Number [address] [address] * (ABNORMAL) Calcium (02/04/2025 11:45 AM EDT) CALCIUM 10.8(H) 8.4 - 10.3 mg/dL [facility] Blood 02/04/2025 11:4 5 AM EDT 02/04/2025 11:47 AM EDT us Benson Ng MD LAB BLOOD BKR ORD ERABLES Final Result Performing Organization Address [facility]/ZIP Co de Phone Number [address] [address] * Electrolytes (02/04/2025 11:45 AM EDT) SODIUM 140 133 - 146 mmol/L [facility] POTASSIUM 4.7 3.3 - 5.1 mmol/L [facility] CHLORIDE 101 96 - 108 mmol/L [facility] CO2 27 21 - 35 mmol/L [facility] ANION GAP 17 10 - 20 mmol/L [facility] Blood 02/04/2025 11:4 5 AM EDT 02/04/2025 11:47 AM EDT us Benson Ng MD LAB BLOOD BKR ORD ERABLES Final Result Performing Organization Address [facility]/ZIP Co de Phone Number [address] [address] * TSH (04/20/2024 12:44 PM EST) TSH 2.86 0.27 - 4.20 uIU/mL [facility] Blood 04/20/2024 12:4 4 PM EST 04/20/2024 12:51 PM EST us Eduardo Everett MD LAB BLOOD BKR ORDERABLES Fi nal Result Performing Organization Address [facility]/ZIP Co de Phone Number [address] [address] * (ABNORMAL) Lipid panel (04/20/2024 12:44 PM EST) HDL 43 mg/dL [facility] Comment: Interpretation <40 mg/dL: Low HDL cholesterol (major risk factor for CHD) Greater than or equal to 60 mg/dL: High HDL cholesterol ( negative risk factor for CHD) HDL - cholesterol is affected by a number of factors, e.g. smoking, excerise, hormones, sex and age. CHOLESTEROL 234 0 - 240 mg/dL [facility] TRIGLYCERIDES 273(H) 30 - 160 mg/dL [facility] LDL 136(H) 50 - 129 mg/dL [facility] Comment: LDL levels in terms of risk for coronary heart disease: <100 mg/dL: Optimal 100-129 mg/dL: Near or above optimal 130-159 mg/dL: Borderline high 160-189 mg/dL: High >190 mg/dL: Very High CARDIAC RISK RATIO 5.4(H) 3.4 - 5.0 C [facility] Blood 04/20/2024 12:4 4 PM EST 04/20/2024 12:52 PM EST Eduardo Everett MD LAB BLOOD BKR ORDERABLES Fi nal Result Performing Organization Address City/[facility] Co de Phone Number [address] [address] * Glucose (10/24/2023 8:15 AM EDT) GLUCOSE 99 70 - 99 mg/dL [facility] Blood 10/24/2023 8:15 AM EDT 10/24/2023 8:16 AM EDT Eduardo Everett MD LAB BLOOD BKR ORDERABLES Fi nal Result Performing Organization Address City/[facility]/ZIP Co de Phone Number [address] [address] * ENDOSCOPY, COLON (01/24/2022 12:55 PM EDT) Narrative Transcriptions Ayana Walls MD - 01/24/2022 12:55 PM EDT Patient Name: Rashard Argueta Attending MD:: AYANA WALLS MD Procedure Date: 01/24/2022 12:55 PM Date of : 1965 Age: 56 Admit Type: Outpatient Gender: Male Room: [place] [address] Referring MD: EDUARDO EVERETT MD Exam Type: [...] 12:55 PM Procedure Code(s): --- Professional --- 62047, Colonoscopy, flexible; diagnostic, including collection of specimen(s) by brushing or washing, when performed (separateprocedure) --- Technical --- 44756, Colonoscopy, flexible; diagnostic, including collection of specimen(s) [...] or abscess without bleeding CPT copyright 2020 [employer]. All rights reserved. The codes documented in this report are preliminary and upon saddle lining stitcher reviewmay be revised to meet current compliance requirements. Procedure Date: 01/24/2022 12:55:[address] [place] [address] us Eduardo Everett MD GI PROCEDURE ORDERABLES Fin al Result * Hepatitis B surface antigen (07/22/2021 5:20 AM EDT) HBV SURFACE ANTIGEN Negative Negative [facility] Blood 07/22/2021 5:20 AM EDT 07/22/2021 5:47 AM EDT us Rajwinder Villagran Elier FILES SUPERVISOR LAB BLOOD BKR ORDERABLE S Final Result [facility] [address] [place] [address] from Last 3 Months or Most Recently Relevant to Health Maintenance Insurance OUT [facility] [place] [address] [place] [address] PPO BLUE CROSS OUT OF STATE PPO BLUE [place]OSS OUT OF [facility] [place] [address] [place] [address] CROSS OUT OF [facility] PPO OUT OF [facility] PPO OUT [facility] PPO BLUE [place] OUT OF [facility] PPO OUT [facility] PPO Advance Directives For more information, please contact: [phone] (9AM - 5PM [facility], Friday-Friday) Documents on File Type Date Recorded Patient Switch Adjuster Expl anation Healthcare Proxy 08/01/2021 2:47 PM [...] Agent (Proxy form on file) Care Teams Development Professional Relationship Specialty Start Date End Date Eduardo Everett MD PCP - General Family Medicine 05/31/[address], [address] [place] [address] Nephrology 06/06/16 Additional Source Comments The information contained in this document represents components of the legal health record. It is not the complete legal health record.[facility]
--- OUTSIDE RECORDS SUMMARY | 2025-04-27 08:56 | XMS_ITS | Encounter Summary ---
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 on file Not on file documented as of this encounter Plan of Treatment Upcoming Encounters Date Type Department Care Team (Late st Contact Info) Description 06/10/2025 11:00 AM EST Office Visit [facility] Gastro[facility]ology Clinic [address] [place] [address] Unknown, Unknown, Lorin Lal, SHIRA [address] [place] [address] [email or web address] [email or web address] Results Name Type Priority Associated Diagnoses Date /Time 1-25-OH vitamin D Lab Routine Primary hyperparathyroidism Myxedema heart disease Hypercalcemia 11/24/2018 11:05 AM EDT documented as of this encounter Results * 25-OH vitamin D (11/24/2018 11:05 AM EDT) 25 OH VIT D (TOTAL) 37 30 - 60 ng/mL [facility] Blood 11/24/2018 11:0 5 AM EDT 11/24/2018 5:40 PM EDT Carlos Lorenzo MD LAB BLOOD BKR ORDERABL ES Final Result Performing Organization Address [facility] Co de Phone Number [address] [address] * TSH (11/24/2018 11:05 AM EDT) TSH 1.97 0.27 - 4.20 uIU/mL [facility] Blood 11/24/2018 11:0 5 AM EDT 11/24/2018 5:40 PM EDT Carlos Lorenzo MD LAB BLOOD BKR ORDERABL ES Final Result Performing Organization Address [facility] de Phone Number [address] [address] * Free T4 (11/24/2018 11:05 AM EDT) FREE T4 1.3 0.9 - 1.7 ng/dL [facility] Blood 11/24/2018 11:0 5 AM EDT 11/24/2018 5:40 PM EDT Carlos Lorenzo MD LAB BLOOD BKR ORDERABL ES Final Result Performing Organization Address [facility] Co de Phone Number [address] [place] [address] * T4, total (11/24/2018 11:05 AM EDT) THYROXINE 6.3 4.6 - 12.0 ug/dL [facility] Blood 11/24/2018 11:0 5 AM EDT 11/24/2018 5:40 PM EDT Carlos Lorenzo MD LAB BLOOD ORDERABLES F inal Result [address] [address] * T3, Total (11/24/2018 11:05 AM EDT) TOTAL T3 102 60 - 181 ng/dL [facility] Blood 11/24/2018 11:0 5 AM EDT 11/24/2018 5:40 PM EDT Carlos Lorenzo MD LAB BLOOD BKR ORDERABL ES Final Result [address] [address] * Phosphorus (11/24/2018 11:05 AM EDT) PHOSPHORUS 3.1 2.7 - 4.5 mg/dL [facility] Blood 11/24/2018 11:0 5 AM EDT 11/24/2018 5:40 PM EDT Carlos Lorenzo MD LAB BLOOD BKR ORDERABL ES Final Result [address] [address] * (ABNORMAL) Parathyroid hormone (PTH) (11/24/2018 11:05 AM EDT) PARATHYROID HORMONE 5(L) 15 - 65 pg/mL [facility] Blood 11/24/2018 11:0 5 AM EDT 11/24/2018 5:31 PM EDT Carlos Lorenzo MD LAB BLOOD BKR ORDERABL ES Final Result Performing Organization Address City/[facility]/ZIP Co de Phone Number [address] [address] * (ABNORMAL) Comprehensive metabolic panel (11/24/2018 11:05 AM EDT) SODIUM 139 133 - 146 mmol/L [facility] POTASSIUM 4.3 3.3 - 5.1 mmol/L [facility] CHLORIDE 100 96 - 108 mmol/L [facility] CO2 27 21 - 35 mmol/L [facility] BUN 19 6 - 19 mg/dL [facility] CREATININE 1.60(H) 0.5 - 1.5 mg/dL [facility] GLUCOSE 129(H) 70 - 99 mg/dL [facility] ALBUMIN 4.1 3.9 - 4.8 g/dL [facility] TOTAL PROTEIN 6.4(L) 6.5 - 8.0 g/dL [facility] CALCIUM 10.6(H) 8.4 - 10.3 mg/dL [facility] ALKALINE PHOSPHATASE 67 39 - 117 U/L [facility] TOTAL BILIRUBIN 0.7 0.0 - 1.2 mg/dL [facility] AST 25 0 - 37 U/L [facility] ALT 33 0 - 40 U/L [facility] GLOBULIN 2.3 1 - 4.8 g/dL [facility] EGFR 48(L) >59 mL/min/1.7 3m2 [facility] Comment:If patient is black, multiply result by 1.159. Estimated glomerular filtration rate calculated using the CKD-EPI equation. ANION GAP 16 10 - 20 mmol/L [facility] Blood 11/24/2018 11:0 5 AM EDT 11/24/2018 5:40 PM EDT Carlos Lorenzo MD LAB BLOOD BKR ORDERABL ES Final Result [address] [address] documented in this encounter Visit Diagnoses Diagnosis Primary hyperparathyroidism- Primary Myxedema heart disease Unspecified hypothyroidism Hypercalcemia documented in this encounter Care Teams Fruit Dumper Relationship Specialty Start Date End Date Carl [place] MD [email or web address] PCP - General Family Medicine 05/31/[address], [address] [place] [address] Nephrology 06/06/16 documented as of this encounter Additional Source Comments The information contained in this document represents components of the legal health record. It is not the complete legal health record.[facility]
--- OUTSIDE RECORDS SUMMARY | 2025-04-27 08:57 | XMS_ITS | Encounter Summary ---
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 Not on file Not on file documented as of this encounter Plan of Treatment Upcoming Encounters Date Type Department Care Team (Late st Contact Info) Description 06/10/2025 11:00 AM EST Office Visit [facility] [address] [place] [address] Unknown, UnknownMD Tony Rachel Marie, INSPECTION MACHINE TENDER [address] [place] [address] [email or web address] documented as of this encounter Results * (ABNORMAL) Lipid panel (08/14/2017 7:39 AM EDT) HDL 43 mg/dL [facility] Comment: Interpretation: Risk Level Males Decreased >45 mg/dL Average 40-45 mg/dL Increased <40 mg/dL CHOLESTEROL 262(H) 0 - 240 mg/dL [facility] TRIGLYCERIDES 303(H) 30 - 160 mg/dL [facility] LDL 158(H) 50 - 129 mg/dL [facility] Comment: LDL levels in terms of risk for coronary heart disease: <100 mg/dL: Optimal 100-129 mg/dL: Near or above optimal 130-159 mg/dL: Borderline high 160-189 mg/dL: High >190 mg/dL: Very High CARDIAC RISK RATIO 6.1(H) 3.4 - 5.0 C [facility] Blood 08/14/2017 7:39 AM EDT 08/14/2017 9:09 AM EDT Carl [place] MD LAB BLOOD BKR ORDERABLES Fi nal Result [address] [address] documented in this encounter Visit Diagnoses Diagnosis Mixed hyperlipidemia- Primary documented in this encounter Care Teams Consumer Electronic Retail Specialist Relationship Specialty Start Date End Date Carl [place] MD PCP - General Family Medicine 05/31/16 LUZ [address]LEY [address] [place] [address], [address] [place] [address] Nephrology 06/06/16 documented as of this encounter Additional Source Comments The information contained in this document represents components of the legal health record. It is not the complete legal health record.[facility]
--- OUTSIDE RECORDS SUMMARY | 2025-04-27 08:57 | XMS_ITS | Encounter Summary ---
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 file Not on file documented as of this encounter Plan of Treatment Upcoming Encounters Date Type Department Care Team (Late st Contact Info) Description 06/10/2025 11:00 AM EST Office Visit [facility] Gastro[facility]ology Clinic [address] [place] [address] Unknown, Unknown, Lorin Lal, FLUME RIDE OPERATOR [address] [place] [address] documented as of this encounter Visit Diagnoses Not on filedocumented in this encounter Care Teams Senior Mobile Web Developer Relationship Specialty Start Date End Date Carl [place] MD [email or web address] PCP - General Family Medicine 05/31/[address], [address] [place] [address] Nephrology 06/06/16 documented as of this encounter Additional Source Comments The information contained in this document represents components of the legal health record. It is not the complete legal health record.[facility]
--- OUTSIDE RECORDS SUMMARY | 2025-04-27 08:57 | XMS_ITS | Encounter Summary ---
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 Not on file documented as of this encounter Plan of Treatment Upcoming Encounters Date Type Department Care Team (Late st Contact Info) Description 06/10/2025 11:00 AM EST Office Visit [facility] Gastro[facility]ology Clinic 10 [place] [address] Unknown, Unknown, MD Jimenez, Lorin Orosco, INSPECTOR HEATING AND REFRIGERATION [address] [place] [address] [email or web address] documented as of this encounter Results * (ABNORMAL) Testosterone, total and free (09/29/2017 11:24 AM EDT) FREE TESTOSTERONE 2.52(L) 4.06 - 15.6 ng/dL [facility] Comment: (NOTE) ADDITIONAL INFORMATION Testing performed by [facility]. This test was developed and its performance characteristics determined by [facility] in a manner consistent with CLIA requirements. This test has not been cleared or approved by the U.S. Food and Drug Administration. TESTOSTERONE, TOTAL 105(L) 240 - 950 ng/dL [facility] Comment: (NOTE) ADDITIONAL INFORMATION Testing performed by Liquid Chromatography-Tandem Mass Spectrometry (LC-MS/MS). This test was developed and its performance characteristics determined by [facility] in a manner consistent with CLIA requirements. This test has not been cleared or approved by the U.S. Food and Drug Administration. 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 It is not the complete legal health record.[facility]
--- OUTSIDE RECORDS SUMMARY | 2025-04-27 08:57 | XMS_ITS | Encounter Summary ---
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 Not on file Not on file documented as of this encounter Plan of Treatment Upcoming Encounters Date Type Department Care Team (Late st Contact Info) Description 06/10/2025 11:00 AM EST Office Visit [facility] [address] [place] [address] Unknown, Unknown, Lorin Lal, BUSINESS CASE ANALYST 10 [place] [address] [email or web address] documented as of this encounter Results * Testosterone, total (06/04/2019 11:17 AM EST) TESTOSTERONE 827 249 - 836 ng/dL [facility] Blood 06/04/2019 11:1 7 AM EST 06/04/2019 12:23 PM EST us Carl Kent MD LAB BLOOD BKR ORDERABLES Fi nal Result [facility] [address] [place] [address] documented in this encounter Visit Diagnoses Diagnosis Impotence of organic origin- Primary documented in this encounter Care Teams Deck Mechanic Relationship Specialty Start Date End Date Carl Kent MD [email or web address] PCP - General Family Medicine 05/31/16 LUZ HUNTLEY [address] [place] [address], [address] [place] [address] Nephrology 06/06/16 documented as of this encounter Additional Source Comments The information contained in this document represents components of the legal health record. It is not the complete legal health record.[facility]
--- OUTSIDE RECORDS SUMMARY | 2025-04-27 08:57 | XMS_ITS | Encounter Summary ---
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 Comment: (NOTE) ADDITIONAL INFORMATION Testing performed by [facility]. This test was developed and its performance characteristics determined by [facility] in a manner consistent with CLIA requirements. This test has not been cleared or approved by the U.S. Food and Drug Administration. TESTOSTERONE, TOTAL 76(L) 240 - 950 ng/dL [facility] Comment: (NOTE) ADDITIONAL INFORMATION Testing performed by Liquid Chromatography-Tandem Mass Spectrometry (LC-MS/MS). This test was developed and its performance characteristics determined by [facility] in a manner consistent with CLIA requirements. This test has not been cleared or approved by the U.S. Food and Drug Administration. Blood 12/28/2018 10:3 0 AM EDT 12/28/2018 10:34 AM EDT us Carl Kent MD LAB BLOOD BKR ORDERABLES Fi nal Result 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 It is not the complete legal health record.[facility]
--- OUTSIDE RECORDS SUMMARY | 2025-04-27 08:57 | XMS_ITS | Encounter Summary ---
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 on file Not on file documented as of this encounter Plan of Treatment Upcoming Encounters Date Type Department Care Team (Late Contact Info) Description 06/10/2025 11:00 AM EST Office Visit [facility] [address] [place] [address] Unknown, Unknown, Lorin Lal, COMMERCIAL CENTER MANAGER [address] [place] [address] [email or web address] documented as of this encounter Visit Diagnoses Diagnosis Lumbar radiculopathy Thoracic or lumbosacral neuritis or radiculitis, unspecified documented in this encounter Care Teams Shredder Tender Relationship Specialty Start Date End Date Carl Kent MD [email or web address] PCP - General Family Medicine 05/31/[address], [address] [place] [address] Nephrology 06/06/16 documented as of this encounter Additional Source Comments The information contained in this document represents components of the legal health record. It is not the complete legal health record.[facility]
--- OUTSIDE RECORDS SUMMARY | 2025-04-27 08:57 | XMS_ITS | Encounter Summary ---
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 file Not on file documented as of this encounter Plan of Treatment Upcoming Encounters Date Type Department Care Team (Late st Contact Info) Description 06/10/2025 11:00 AM EST Office Visit [facility] [address] [address] Unknown, Unknown, MD Jimenez, Lorin Orosco, OIL CHANGE TECHNICIAN 10 [place] [address] [email or web address] documented as of this encounter Results * Testosterone, bioavailable/total/free (06/01/2018 10:05 AM EST) TESTOSTERONE, TOTAL 441 240 - 950 ng/dL [facility] Comment: (NOTE) ADDITIONAL INFORMATION Testing performed by Liquid Chromatography-Tandem Mass Spectrometry (LC-MS/MS). This test was developed and its performance characteristics determined by [facility] in a manner consistent with CLIA requirements. This test has not been cleared or approved by the U.S. Food and Drug Administration. FREE TESTOSTERONE 11.5 4.06 - 15.6 ng/dL [facility] Comment: (NOTE) ADDITIONAL INFORMATION Testing performed by [facility]. This test was developed and its performance characteristics determined by [facility] in a manner consistent with CLIA requirements. This test has not been cleared or approved by the U.S. Food and Drug Administration. BIOAVAIL TESTOST 159 50 - 190 ng/dL [facility] Comment: (NOTE) ADDITIONAL INFORMATION Testing performed by [facility]. This test was developed and its performance characteristics determined by [facility] in a manner consistent with CLIA requirements. This test has not been cleared or approved by the U.S. Food and Drug Administration. Blood 06/01/2018 10:0 5 AM EST 06/01/2018 10:11 AM EST us Carl Kent MD LAB BLOOD BKR ORDERABLES Fi nal Result [facility] [address] [place] [address] * (ABNORMAL) Lipid panel (06/01/2018 10:05 AM EST) HDL 43 mg/dL [facility] Comment: Interpretation <40 mg/dL: Low HDL cholesterol (major risk factor for CHD) Greater than or equal to 60 mg/dL: High HDL cholesterol ( negative risk factor for CHD) HDL - cholesterol is affected by a number of factors, e.g. smoking, excerise, hormones, sex and age. CHOLESTEROL 242(H) 0 - 240 mg/dL [facility] TRIGLYCERIDES 332(H) 30 - 160 mg/dL [facility] LDL 133(H) 50 - 129 mg/dL [facility] Comment: LDL levels in terms of risk for coronary heart disease: <100 mg/dL: Optimal 100-129 mg/dL: Near or above optimal 130-159 mg/dL: Borderline high 160-189 mg/dL: High >190 mg/dL: Very High CARDIAC RISK RATIO 5.6(H) 3.4 - 5.0 [facility] Blood 06/01/2018 10:0 5 AM EST 06/01/2018 10:11 AM EST us Carl Kent MD LAB BLOOD BKR ORDERABLES Fi nal Result Performing Organization Address City/[facility]/ZIP Co de Phone Number [address] [address] documented in this encounter Visit Diagnoses Diagnosis 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 It is not the complete legal health record.[facility]
--- OUTSIDE RECORDS SUMMARY | 2025-04-27 08:59 | XMS_ITS | Encounter Summary ---
Author Organization [facility] Address [address] [place] [address] Phone Care Team Providers Care Design Leader Name Role Phone Carl Kent MD Primary Care Provider [phone]- [phone] Reason for Referral * MRI/CAT Scan - Closed Specialty Diagnoses / Procedures Referred By Contac t Referred To Contact Radiology Diagnoses Dilation of biliary tract IPMN (intraductal papillary mucinous neoplasm) Procedures MRI Cholangiopancreatography (MRCP) CHG MRI, ABDOMEN, COMBO CHG MRI, ABDOMEN (MRI) CHG MRI, ABDOMEN W/CONTRAST Fei Walls MD Phone: tel: fax: [email or web address] Referral ID Status Reason Start Date Expiration Date Visits Re quested Visits Authorized [id number] Closed 10/16/2022 12/14/2022 1 1 Encounter Details Date Type Department Care Team (Latest Contact Info) Description 10/16/2022 Transcribe Orders Virtual Department [address] [place] [address] Fei Walls MD [address] [place] [phone] [email or web address] Dilation of biliary tract (Primary Dx); IPMN [...] 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 on file Not on file documented as of this encounter Plan of Treatment Upcoming Encounters Date Type Department Care Team (Late st Contact Info) Description 06/10/2025 11:00 AM EST Office Visit [facility] [address] [place] [address] Unknown, Unknown, MD Jimenez, Lorin Orosco, CLIP ON SUNGLASSES INSPECTOR 10 [place] [address] [email or web address] documented as of this encounter Results * [...] system documented in this encounter Care Teams Design Leader Relationship Specialty Start Date End Date Carl Kent MD PCP - General Family Medicine 05/31/[address], [address] [place] [address] Nephrology 06/06/16 documented as of this encounter Additional Source Comments The information contained in this document represents components of the legal health record. It is not the complete legal health record.[facility]
--- OUTSIDE RECORDS SUMMARY | 2025-04-27 08:59 | XMS_ITS | Encounter Summary ---
Author Organization [facility] Address [address] [place] [address] Phone Care Team Providers Care Light Armored Reconnaissance Officer Name Role Phone Carl Kent MD Primary Care Provider +1- [phone] Encounter Details Date Type Department Care Team (Late st Contact Info) Description 06/01/2019 Transcribe Orders [address] [address] Carl Kent MD [address] [place] [address] [email or web address] Social History Tobacco Use Types Packs/Day Years [...] Description 06/10/2025 11:00 AM EST Office Visit [facility] 10 [place] [address] Unknown, Unknown, Lorin Lal, MUSIC COPYIST 10 [place] [address] documented as of this encounter Visit Diagnoses Not on filedocumented in this encounter Care Teams Light Armored Reconnaissance Officer Relationship Specialty Start Date End Date Carl Kent MD PCP - General Family Medicine 05/31/[address], [address] [place] [address] Nephrology 06/06/16 documented as of this encounter Additional Source Comments The information contained in this document represents components of the legal health record. It is not the complete legal health record.[facility]
--- OUTSIDE RECORDS SUMMARY | 2025-04-27 08:59 | XMS_ITS | Encounter Summary ---
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 Not on file documented as of this encounter Plan of Treatment Upcoming Encounters Date Type Department Care Team (Late Contact Info) Description 06/10/2025 11:00 AM EST Office Visit [facility] 10 [place] [address] Unknown, Unknown, Lorin Lal, SOLAR DESIGNER 10 [place] [address] [email or web address] documented as of this encounter Results * (ABNORMAL) Testosterone, total and free (03/29/2019 7:34 AM EST) FREE TESTOSTERONE 3.97(L) 4.06 - 15.6 ng/dL [facility] Comment: (NOTE) ADDITIONAL INFORMATION Testing performed by [facility]. This test was developed and its performance characteristics determined by [facility] in a manner consistent with CLIA requirements. This test has not been cleared or approved by the U.S. Food and Drug Administration. TESTOSTERONE, TOTAL 147(L) 240 - 950 ng/dL [facility] Comment: (NOTE) ADDITIONAL INFORMATION Testing performed by Liquid Chromatography-Tandem Mass Spectrometry (LC-MS/MS). This test was developed and its performance characteristics determined by [facility] in a manner consistent with CLIA requirements. This test has not been cleared or approved by the U.S. Food and Drug Administration. Blood 03/29/2019 7:34 AM EST 03/29/2019 7:58 AM EST us Carl Kent MD LAB BLOOD BKR ORDERABLES Fi nal Result [facility] [address] [place] [address] * (ABNORMAL) Lipid panel (03/29/2019 7:34 AM EST) HDL 39 mg/dL [facility] Comment: Interpretation <40 mg/dL: Low HDL cholesterol (major risk factor for CHD) Greater than or equal to 60 mg/dL: High HDL cholesterol ( negative risk factor for CHD) HDL - cholesterol is affected by a number of factors, e.g. smoking, excerise, hormones, sex and age. CHOLESTEROL 214 0 - 240 mg/dL [facility] TRIGLYCERIDES 246(H) 30 - 160 mg/dL [facility] LDL 126 50 - 129 mg/dL [facility] Comment: LDL levels in terms of risk for coronary heart disease: <100 mg/dL: Optimal 100-129 mg/dL: Near or above optimal 130-159 mg/dL: Borderline high 160-189 mg/dL: High >190 mg/dL: Very High CARDIAC RISK RATIO 5.5(H) 3.4 - 5.0 C [facility] Blood 03/29/2019 7:34 AM EST 03/29/2019 7:58 AM EST us Carl Kent MD LAB BLOOD BKR ORDERABLES Fi nal Result Performing Organization Address City/State/[facility] Co de Phone Number [address] [address] documented in this encounter Visit Diagnoses Diagnosis Mixed hyperlipidemia- Primary 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 It is not the complete legal health record.[facility]
--- OUTSIDE RECORDS SUMMARY | 2025-04-27 09:00 | XMS_ITS | Encounter Summary ---
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 Not on file documented as of this encounter Plan of Treatment Upcoming Encounters Date Type Department Care Team (Late st Contact Info) Description 06/10/2025 11:00 AM EST Office Visit [facility] [address] [place] [address] Unknown, Unknown, Lorin Lal, CLINIC SUPERVISOR 10 [place] [address] documented as of this encounter Visit Diagnoses Not on filedocumented in this encounter Care Teams Fire Control Officer Relationship Specialty Start Date End Date Carl Ketn MD PCP - General Family Medicine 05/31/[address], [address] [place] [address] Nephrology 06/06/16 documented as of this encounter Additional Source Comments The information contained in this document represents components of the legal health record. It is not the complete legal health record.[facility]
--- OUTSIDE RECORDS SUMMARY | 2025-04-27 09:00 | XMS_ITS | Encounter Summary ---
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 file Not on file documented as of this encounter Plan of Treatment Upcoming Encounters Date Type Department Care Team (Late st Contact Info) Description 06/10/2025 11:00 AM EST Office Visit [facility] [address] [place] [phone] Unknown, Unknown, MD Jimenez, Lorin Orosco, COMPENSATION CONSULTANT [address] [place], [place] [phone] documented as of this encounter Visit Diagnoses Not on filedocumented in this encounter Care Teams Cosmetic Sales Relationship Specialty Start Date End Date Carl Kent MD [email or web address] PCP - General Family Medicine 05/31/16 [facility] [address], [address] [place] [address] Nephrology 06/06/16 documented as of this encounter Additional Source Comments The information contained in this document represents components of the legal health record. It is not the complete legal health record.[facility]
--- OUTSIDE RECORDS SUMMARY | 2025-04-27 09:00 | XMS_ITS | Encounter Summary ---
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 Not on file documented as of this encounter Plan of Treatment Upcoming Encounters Date Type Department Care Team (Late st Contact Info) Description 06/10/2025 11:00 AM EST Office Visit [facility] G[facility] Clinic [address] [place] [address] [phone] Unknown, Unknown, Lorin Lal, DRILLER AND BROACHER [address] [place], [place] [phone] [email or web address] documented as of this encounter Results * (ABNORMAL) Phosphorus (10/02/2017 11:36 AM EDT) PHOSPHORUS 2.6(L) 2.7 - 4.5 mg/dL [facility] Blood 10/02/2017 11:3 6 AM EDT 10/02/2017 11:41 AM EDT us Carlos Lorenzo MD LAB BLOOD BKR ORDERABL ES Final Result [address] [phone] * (ABNORMAL) Comprehensive metabolic panel (10/02/2017 11:36 AM EDT) SODIUM 140 133 - 146 mmol/L [facility] POTASSIUM 4.4 3.3 - 5.1 mmol/L [facility] CHLORIDE 98 96 - 108 mmol/L [facility] CO2 23 21 - 35 mmol/L [facility] BUN 42(H) 6 - 19 mg/dL [facility] CREATININE 2.10(H) 0.5 - 1.5 mg/dL [facility] GLUCOSE 74 70 - 99 mg/dL [facility] ALBUMIN 4.1 3.9 - 4.8 g/dL [facility] TOTAL PROTEIN 6.8 6.5 - 8.0 g/dL [facility] CALCIUM 10.3 8.4 - 10.3 mg/dL [facility] ALKALINE PHOSPHATASE 54 39 - 117 U/L [facility] TOTAL BILIRUBIN 0.8 0.0 - 1.2 mg/dL [facility] AST 19 0 - 37 U/L [facility] ALT 18 0 - 40 U/L [facility] GLOBULIN 2.7 1 - 4.8 g/dL [facility] EGFR 35(L) >59 mL/min/1.7 3m2 [facility] Comment:If patient is black, multiply result by 1.159. The eGFR calculation has changed from the MDRD equation to the CKD-EPI equation as of July 15, 2017. ANION GAP 23(H) 10 - 20 mmol/L [facility] Blood 10/02/2017 11:3 6 AM EDT 10/02/2017 11:41 AM EDT us Carlos Lorenzo MD LAB BLOOD BKR ORDERABL ES Final Result [facility] [address] [place] [address] documented in this encounter Visit Diagnoses Diagnosis Status post parathyroidectomy- Primary Other postprocedural status Hypercalcemia documented in this encounter Care Teams Transportation Superintendent Relationship Specialty Start Date End Date Carl Kent MD PCP - General Family Medicine 05/31/16 [facility] [address], [address] [place] [address] Nephrology 06/06/16 documented as of this encounter Additional Source Comments The information contained in this document represents components of the legal health record. It is not the complete legal health record.[facility]
--- OUTSIDE RECORDS SUMMARY | 2025-04-27 09:00 | XMS_ITS | Encounter Summary ---
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 Not on file Not on file documented as of this encounter Plan of Treatment Upcoming Encounters Date Type Department Care Team (Late st Contact Info) Description 06/10/2025 11:00 AM EST Office Visit [facility] Gastroenterology Clinic [address] [place] [address] [phone] Unknown, Unknown, Lorin Lal, AIR CONTROL/ANTI AIR WARFARE OFFICER [address] [place] [address] [phone] documented as of this encounter Results * Phosphorus (10/04/2017 8:48 AM EDT) PHOSPHORUS 3.6 2.7 - 4.5 mg/dL [facility] Blood 10/04/2017 8:48 AM EDT 10/04/2017 8:52 AM EDT us Carlos Lorenzo MD LAB BLOOD BKR ORDERABL ES Final Result [facility] [address] [place] [address] * (ABNORMAL) Comprehensive metabolic panel (10/04/2017 8:48 AM EDT) SODIUM 140 133 - 146 mmol/L [facility] POTASSIUM 4.3 3.3 - 5.1 mmol/L [facility] CHLORIDE 100 96 - 108 mmol/L [facility] CO2 26 21 - 35 mmol/L [facility] BUN 38(H) 6 - 19 mg/dL [facility] CREATININE 2.00(H) 0.5 - 1.5 mg/dL [facility] GLUCOSE 123(H) 70 - 99 mg/dL [facility] ALBUMIN 3.9 3.9 - 4.8 g/dL [facility] TOTAL PROTEIN 6.6 6.5 - 8.0 g/dL [facility] CALCIUM 10.3 8.4 - 10.3 mg/dL [facility] ALKALINE PHOSPHATASE 62 39 - 117 U/L [facility] TOTAL BILIRUBIN 0.6 0.0 - 1.2 mg/dL [facility] AST 19 0 - 37 U/L [facility] ALT 18 0 - 40 U/L [facility] GLOBULIN 2.7 1 - 4.8 g/dL [facility] EGFR 37(L) >59 mL/min/1.7 3m2 [facility] Comment:If patient is black, multiply result by 1.159. The eGFR calculation has changed from the MDRD equation to the CKD-EPI equation as of July 15, 2017. ANION GAP 18 10 - 20 mmol/L [facility] Blood 10/04/2017 8:48 AM EDT 10/04/2017 8:52 AM EDT us Carlos Lorenzo MD LAB BLOOD BKR ORDERABL ES Final Result [facility] [address] [place] [address] documented in this encounter Visit Diagnoses Diagnosis Status post parathyroidectomy- Primary Other postprocedural status Hypercalcemia documented in this encounter Care Teams Sheet Rock Layer Relationship Specialty Start Date End Date Carl Kent MD PCP - General Family Medicine 05/31/16 FATIMAHJUN HUNTLEY [address] [place] [address], [address] [place] [address] Nephrology 06/06/16 documented as of this encounter Additional Source Comments The information contained in this document represents components of the legal health record. It is not the complete legal health record.[facility]
--- OUTSIDE RECORDS SUMMARY | 2025-04-27 09:00 | XMS_ITS | Encounter Summary ---
Author Organization 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 Gastroenterology Clinic [address] [place] [address] [phone] Unknown, Unknown, Lorin Lal, SALESPERSON NECKTIES [address] [place], [place] [phone] [email or web address] documented as of this encounter Results * Phosphorus (10/08/2017 11:15 AM EDT) PHOSPHORUS 3.6 2.7 - 4.5 mg/dL [facility] Blood 10/08/2017 11:1 5 AM EDT 10/08/2017 11:18 AM EDT us Carlos Lorenzo MD LAB BLOOD BKR ORDERABL ES Final Result [facility] [address] [place] [address] * (ABNORMAL) Comprehensive metabolic panel (10/08/2017 11:15 AM EDT) SODIUM 140 133 - 146 mmol/L [facility] POTASSIUM 4.7 3.3 - 5.1 mmol/L [facility] CHLORIDE 101 96 - 108 mmol/L [facility] CO2 27 21 - 35 mmol/L [facility] BUN 40(H) 6 - 19 mg/dL [facility] CREATININE 2.00(H) 0.5 - 1.5 mg/dL [facility] GLUCOSE 90 70 - 99 mg/dL [facility] ALBUMIN 4.1 3.9 - 4.8 g/dL [facility] TOTAL PROTEIN 6.8 6.5 - 8.0 g/dL [facility] CALCIUM 9.8 8.4 - 10.3 mg/dL [facility] ALKALINE PHOSPHATASE 54 39 - 117 U/L [facility] TOTAL BILIRUBIN 0.7 0.0 - 1.2 mg/dL [facility] AST 22 0 - 37 U/L [facility] ALT 14 0 - 40 U/L [facility] GLOBULIN 2.7 1 - 4.8 g/dL [facility] EGFR 37(L) >59 mL/min/1.7 3m2 [facility] Comment:If patient is black, multiply result by 1.159. The eGFR calculation has changed from the MDRD equation to the CKD-EPI equation as of July 15, 2017. ANION GAP 17 10 - 20 mmol/L [facility] Blood 10/08/2017 11:1 5 AM EDT 10/08/2017 11:18 AM EDT us Carlos Lorenzo MD LAB BLOOD BKR ORDERABL ES Final Result [facility] [address] [place] [address] documented in this encounter Visit Diagnoses Diagnosis Status post parathyroidectomy- Primary Other postprocedural status Hypercalcemia documented in this encounter Care Teams Operations Recruiter Relationship Specialty Start Date End Date Carl Kent MD PCP - General Family Medicine 05/31/16 [facility] AUDI [address] [place] [address], [address] [place] [address] Nephrology 06/06/16 documented as of this encounter Additional Source Comments The information contained in this document represents components of the legal health record. It is not the complete legal health record.[facility]
--- OUTSIDE RECORDS SUMMARY | 2025-04-27 09:01 | XMS_ITS | Encounter Summary ---
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 on file Not on file documented as of this encounter Plan of Treatment Upcoming Encounters Date Type Department Care Team (Late st Contact Info) Description 06/10/2025 11:00 AM EST Office Visit [facility] Gastroenterology Clinic [address] [place] [address] [phone] Unknown, Unknown, Lorin Lal, METALWORKING SPECIALIST [address] [place] [address] documented as of this encounter Results * Phosphorus (12/17/2017 11:38 AM EDT) PHOSPHORUS 3.9 2.7 - 4.5 mg/dL [facility] Blood 12/17/2017 11:3 8 AM EDT 12/17/2017 11:52 AM EDT us Carlos Lorenzo MD LAB BLOOD BKR ORDERABL ES Final Result [facility] [address] [place] [address] * (ABNORMAL) Comprehensive metabolic panel (12/17/2017 11:38 AM EDT) SODIUM 139 133 - 146 mmol/L [facility] POTASSIUM 4.0 3.3 - 5.1 mmol/L [facility] CHLORIDE 99 96 - 108 mmol/L [facility] CO2 24 21 - 35 mmol/L [facility] BUN 26(H) 6 - 19 mg/dL [facility] CREATININE 1.60(H) 0.5 - 1.5 mg/dL [facility] GLUCOSE 98 70 - 99 mg/dL [facility] ALBUMIN 4.0 3.9 - 4.8 g/dL [facility] TOTAL PROTEIN 6.9 6.5 - 8.0 g/dL [facility] CALCIUM 10.8(H) 8.4 - 10.3 mg/dL [facility] ALKALINE PHOSPHATASE 54 39 - 117 U/L [facility] TOTAL BILIRUBIN 0.7 0.0 - 1.2 mg/dL [facility] AST 17 0 - 37 U/L [facility] ALT 26 0 - 40 U/L [facility] GLOBULIN 2.9 1 - 4.8 g/dL [facility] EGFR 48(L) >59 mL/min/1.7 3m2 [facility] Comment:If patient is black, multiply result by 1.159. Estimated glomerular filtration rate calculated using the CKD-EPI equation. ANION GAP 20 10 - 20 mmol/L [facility] Blood 12/17/2017 11:3 8 AM EDT 12/17/2017 11:52 AM EDT us Carlos Lorenzo MD LAB BLOOD BKR ORDERABL ES Final Result [facility] [address] [place] [address] documented in this encounter Visit Diagnoses Diagnosis Status post parathyroidectomy- Primary Other postprocedural status Hypercalcemia documented in this encounter Care Teams Real Estate Utilization Officer Relationship Specialty Start Date End Date Carl Kent MD PCP - General Family Medicine 05/31/16 LUZ HUNTLEY [address] [place] [address], [address] [place] [address] Nephrology 06/06/16 documented as of this encounter Additional Source Comments The information contained in this document represents components of the legal health record. It is not the complete legal health record.[facility]
--- OUTSIDE RECORDS SUMMARY | 2025-04-27 09:01 | XMS_ITS | Encounter Summary ---
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 on file Not on file documented as of this encounter Plan of Treatment Upcoming Encounters Date Type Department Care Team (Late st Contact Info) Description 06/10/2025 11:00 AM EST Office Visit [facility] Gastroenterology Clinic [address] [place] [phone] Unknown, Unknown, Lorin Lal, HOSE TURNER [address] [place], [place] [phone] documented as of this encounter Results * Phosphorus (10/20/2017 10:54 AM EDT) PHOSPHORUS 3.1 2.7 - 4.5 mg/dL [facility] Blood 10/20/2017 10:5 4 AM EDT 10/20/2017 11:10 AM EDT us Carlos Lorenzo MD LAB BLOOD BKR ORDERABL ES Final Result [facility] [address] [place] [address] * (ABNORMAL) Comprehensive metabolic panel (10/20/2017 10:54 AM EDT) SODIUM 138 133 - 146 mmol/L [facility] POTASSIUM 4.8 3.3 - 5.1 mmol/L [facility] CHLORIDE 100 96 - 108 mmol/L [facility] CO2 24 21 - 35 mmol/L [facility] BUN 33(H) 6 - 19 mg/dL [facility] CREATININE 1.70(H) 0.5 - 1.5 mg/dL [facility] GLUCOSE 75 70 - 99 mg/dL [facility] ALBUMIN 4.0 3.9 - 4.8 g/dL [facility] TOTAL PROTEIN 6.7 6.5 - 8.0 g/dL [facility] CALCIUM 10.6(H) 8.4 - 10.3 mg/dL [facility] ALKALINE PHOSPHATASE 55 39 - 117 U/L [facility] TOTAL BILIRUBIN 0.7 0.0 - 1.2 mg/dL [facility] AST 30 0 - 37 U/L [facility] ALT 19 0 - 40 U/L [facility] GLOBULIN 2.7 1 - 4.8 g/dL [facility] EGFR 45(L) >59 mL/min/1.7 3m2 [facility] Comment:If patient is black, multiply result by 1.159. Estimated glomerular filtration rate calculated using the CKD-EPI equation. ANION GAP 19 10 - 20 mmol/L [facility] Blood 10/20/2017 10:5 4 AM EDT 10/20/2017 11:10 AM EDT us Carlos Lorenzo MD LAB BLOOD BKR ORDERABL ES Final Result [address] [address] documented in this encounter Visit Diagnoses Diagnosis Status post parathyroidectomy- Primary Other postprocedural status documented in this encounter Care Teams Reservoir Engineering Advisor Relationship Specialty Start Date End Date Carl Kent MD PCP - General Family Medicine 05/31/16 [facility]UNTLEY [address] [place] [address], [address] [place] [address] Nephrology 06/06/16 documented as of this encounter Additional Source Comments The information contained in this document represents components of the legal health record. It is not the complete legal health record.[facility]
--- OUTSIDE RECORDS SUMMARY | 2025-04-27 09:01 | XMS_ITS | Encounter Summary ---
Author Organization [facility] Address [address] [place] [address] Phone Care Team Providers Care Linen Worker Name Role Phone Carl Kent MD Primary Care Provider [phone]- [phone] Encounter Details Date Type Department Care Team (Late Contact Info) Description 02/22/2020 Telephone [facility] [address] [address] 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 Not on file documented as of this encounter Plan of Treatment Upcoming Encounters Date Type Department Care Team (Late Contact Info) Description 06/10/2025 11:00 AM EST Office Visit [facility] [address] [place] [phone] Unknown, Unknown, Lorin Lal, HOSPICE ART THERAPIST [address] [place] [address] [phone] [email or web address] documented as of this encounter Visit Diagnoses Not on filedocumented in this encounter Care Teams Linen Worker Relationship Specialty Start Date End Date Carl Kent MD PCP - General Family Medicine 05/31/[address], [address] [place] [address] Nephrology 06/06/16 documented as of this encounter Additional Source Comments The information contained in this document represents components of the legal health record. It is not the complete legal health record.[facility]
--- OUTSIDE RECORDS SUMMARY | 2025-04-27 09:01 | XMS_ITS | Encounter Summary ---
Author Organization [facility] Address [address] [place] [address] Phone Care Team Providers Care Vice President Quality Assurance Name Role Phone Carl Kent MD Primary Care Provider Encounter Details Date Type Department Care Team (Late Contact Info) Description 03/06/2018 Procedure Pass [facility] Periop [address] [place] [address] Social History Tobacco Use Types Packs/Day Years [...] 06/10/2025 11:00 AM EST Office Visit [facility] [address] [place] [address] [phone] Unknown, Unknown, Lorin Lal, COMPUTER SYSTEMS TECHNOLOGY INSTRUCTOR [address] [place] [address] documented as of this encounter Visit Diagnoses Not on filedocumented in this encounter Care Teams Vice President Quality Assurance Relationship Specialty Start Date End Date Carl Kent MD [email or web address] PCP - General Family Medicine 05/31/[address], [address] [place] [address] Nephrology 06/06/16 documented as of this encounter Additional Source Comments The information contained in this document represents components of the legal health record. It is not the complete legal health record.[facility]
[2025-04-27 10:52] LABS: Prostate Specific Antigen 2.92 ng/mL (<0.05-4.0)
== END 2025-04-27 08:39 ==
LOC: HO.LAB 08:38
PROVIDERS: PCP Family Medicine; Visit Provider Urology
DX: Z12.5 Encounter for screening for malignant neoplasm of prostate (principal); N41.9 Inflammatory disease of prostate, unspecified
CPT/HCPCS: 36415; 84153